=== PATIENT | male | born 1960 | race Caucasian/White ===

== ENCOUNTER 2020-09-16 14:31 | Outpatient (REF) | payer BC, SELFPAY | END 2020-09-16 14:32 | disposition home or self-care (01) | LOC: HO.LAB 14:31 | PROVIDERS: Visit Provider Internal Medicine | DX: Z20.822 Contact with and (suspected) exposure to COVID-19 (principal) | CPT/HCPCS: 36415; C9803; U0003; U0005 ==

== ENCOUNTER 2023-01-28 19:45 | Outpatient (REF) | payer MEDICAID, SELFPAY ==
[2023-01-28 20:36] LABS: Influenza A PCR NEGATIVE (Negative); Influenza B PCR NEGATIVE (Negative); Resp Syncy Virus RNA Qual PCR NEGATIVE (Negative); SARS COV2 PCR INHOUSE NEGATIVE (Negative)
== END 2023-01-28 19:46 | disposition home or self-care (01) ==
LOC: HO.HHCLNP 19:45
PROVIDERS: Visit Provider Family Medicine
DX: Z20.822 Contact with and (suspected) exposure to COVID-19 (principal); R05.9 Cough, unspecified
CPT/HCPCS: 0241U

== ENCOUNTER 2023-09-16 09:59 | Emergency (ER) | payer BC, SELFPAY ==
--- NOTE | ~2023-09-16 | CT_ITS ---
EXAMINATION: CT HEAD WITHOUT CONTRAST CT CERVICAL SPINE WITHOUT CONTRAST CLINICAL INFORMATION: Head injury status post fall. COMPARISON: No relevant prior imaging. TECHNIQUE: Lapping Machine Operator images were obtained. CT imaging of the head and cervical spine was performed without contrast. Data was reformatted into multiplanar images at the acquisition workstation. This CT examination was performed using dose optimization techniques as appropriate, including one or more of the following: Automated exposure control, iterative reconstruction, and adjustment of technique factors (mA and/or kVp) according to patient size (this includes techniques or standardized protocols for targeted exams where dose is matched to indication/reason for exam). Fleischner Society criteria for the followup of incidental pulmonary nodules was implemented if appropriate. DLP: 1224 mGy-cm. FINDINGS: Head: There is a small focus of gliosis involving the left postcentral gyrus near the vertex that appears to be associated with a tiny encephalocele within an arachnoid granulation. Mathews-white matter differentiation is otherwise preserved and there is no evidence of acute territorial infarct. No acute hemorrhage or abnormal extra-axial collection. Lateral and third ventricles are normal. No hydrocephalus. The calvarium and skull base are intact. Mastoid air cells and middle ear cavities are well aerated. There is a small retention cyst partially visualized within the right maxillary sinus. Otherwise no active paranasal sinus disease. Cervical spine: There is a slight anterolisthesis of C5 on C6 that appears to be related to facet degenerative changes at this level. Alignment is otherwise normal. Vertebral body heights are preserved. No acute cervical spine fracture. No abnormal prevertebral soft tissue swelling. Disc osteophyte spurring in conjunction with facet degenerative change causes varying degrees of neuroforaminal encroachment. There is at least moderate canal stenosis at C6-C7. Uncovertebral joint spurring and conjunction with facet degenerative change causes varying degrees of neuroforaminal encroachment, greatest at C4-C5. Visualized soft tissues of the neck are normal. Lung apices are clear. CT/CT cervical spine wo IV con IMPRESSION: Head: There is a small focus of gliosis involving the left postcentral gyrus near the vertex that appears to be associated with a tiny encephalocele within a superior sagittal sinus arachnoid granulation. Otherwise no evidence of acute territorial infarct or hemorrhage. Cervical Spine: There is multilevel degenerative spondylosis of the cervical spine with at least moderate canal stenosis at the level of C6-C7. If there are clinical symptoms of compressive myelopathy then a dedicated cervical spine MRI can be obtained for better anatomic characterization of the cord and canal. No evidence of acute fracture and no posttraumatic spinal subluxation.
[2023-09-16 10:11] VITALS: BP 122/82; PULSE 91; RESP 16; TEMP 36.4; O2SAT 92; BMI 29.6
--- NOTE | 2023-09-16 10:20 | ECG_ITS ---
Test Reason : FALL Blood Pressure : / mmHG Vent. Rate : 092 BPM Atrial Rate : 092 BPM P-R Int : 134 ms QRS Dur : 076 ms QT Int : 330 ms P-R-T Axes : 050 -25 037 degrees QTc Int : 408 ms Normal sinus rhythm Normal ECG When compared with ECG of 30-SEP-2016 14:01, No significant change was found Referred By: Generic ED Physician Electronically Signed By:SAMANTHA MILES
[2023-09-16 10:42] LABS: MANUAL DIFF FLAG NO
[2023-09-16 10:44] LABS: Basophils Absolute Auto 0.1 X10*3/uL (0.0-0.2); Basophils Percent Auto 0.4 % (0-2); Eosinophils Absolute Auto 0.2 X10*3/uL (0.0-0.4); Eosinophils Percent Auto 1.5 % (0-4); Hematocrit 41.9 % (42.0-52.0); Hemoglobin 14.3 g/dl (14.0-18.0); Imm Gran Abs Auto 0.12 X10*3/uL (0.00-0.03); Imm Gran Pct Auto 0.8 % (0.0-0.4); Lymphocytes Percent Auto 6.5 % (20-40); Mean Corpuscular HGB Conc 34.1 g/dl (31.0-36.0); Mean Corpuscular Hemoglobin 30.6 pg (27.0-33.0); Mean Corpuscular Volume 89.7 fL (80.0-98.0); Mean Platelet Volume 9.1 fL (9.4-12.4); Monocytes Absolute Auto 1.3 X10*3/uL (0.1-1.2); Monocytes Percent Auto 8.4 % (2-11); Neutrophils Absolute Auto 13.2 x10*3/uL (2.0-8.3); Neutrophils Percent Auto 82.4 % (45-73); Platelet Count 281 X10*3/uL (160-400); Red Blood Count 4.67 X10*6/uL (4.60-5.80); Red Cell Distribution Width 14.1 % (11.0-16.0)
--- NOTE | 2023-09-16 10:51 | ED.GENADULT ---
HPI - General Adult General Chief complaint: Fall Stated complaint: Sent by Dr Shantel calabrese out of ear Time Seen by Provider: 09/16/23 10:50 Source: patient Mode of arrival: ambulatory Limitations: no limitations History of Present Illness HPI narrative: Patient is a 63 year old assigned male at with no reported medical history presenting to the emergency department today with left ear pain after a fall. Patient states that last night he had a coughing fit, sat up too quickly, felt dizzy, and fell. Patient states that he did not have any loss of consciousness but did hit the left sided of his head. Patient denies any dizziness, lightheadedness, abdominal pain, nausea, vomiting, fever, chills, blurry vision, double vision, loss of vision, chest pain, difficulty breathing, shortness of breath, back pain, night sweats, pain with urination, increased urinary frequency, increased urinary urgency, blood in his urine or stool, syncope or a near syncopal episode, bowel incontinence, bladder incontinence, bowel retention, bladder retention, or any other complaints at this time. Onset (ago): day(s) (1) Location: left (ear) Radiation: non-radiation Severity: mild Severity scale (1-10): 4 Relieving factors: none Exacerbating factors: none Associated symptoms: denies other symptoms Treatments prior to arrival: none Related Data Previous Rx's Medication Instructions Recorded amoxicillin 875 mg-potassium 1 tab PO BID 10 days #20 tabs 09/16/23 clavulanate 125 mg tablet Allergies Allergy/AdvReac Type Severity Reaction Status Date / Time No Known Allergies Allergy Unverified 09/16/23 10:11 Review of Systems Constitutional: Constitutional: Reports no additional constitutional complaints, Denies chills, Denies fever(s) and Denies night sweats Eyes: Eyes: Reports no additional eye complaints, Denies blurry vision, Denies change in vision, Denies diplopia, Denies eye discharge, Denies loss of vision and Denies eye pain ENT: Denies dizziness Comments: left ear pain, left ear laceration Cardiovascular: Cardiovascular: Reports no additional cardiovascular complaints, Denies chest pain, Denies lightheadedness, Denies Loss of Consciousness and Denies dyspnea Respiratory: Respiratory: Reports no additional respiratory complaints and Denies dyspnea Gastrointestinal: Gastrointestinal: Reports no additional gastrointestinal complaints, Denies abdominal pain, Denies melena, Denies hematochezia, Denies change in bowel habits and Denies change in stool character Genitourinary: Genitourinary: Reports no additional male genitourinary complaints, Denies hematuria, Denies oliguria, Denies difficulty urinating, Denies dysuria, Denies urinary frequency, Denies urinary hesitancy, Denies urinary incontinence and Denies urinary urgency Musculoskeletal: Musculoskeletal: Reports no additional musculoskeletal complaints, Denies numbness and Denies tingling Neurologic: Denies dizziness, Denies loss of vision, Denies numbness and Denies tingling Psychiatric: Psychiatric: Reports no additional psychiatric complaints Endocrine: Endocrine: Reports no additional endocrine complaints Hematologic/Lymphatic: Hematologic/Lymphatic: Reports no additional hematologic/lymphatic complaints Allergic/Immunologic: Allergic/Immunologic: Reports no additional allergic/immunologic complaints PMFSH Past Medical History Attestation statement: The following information was validated with the patient. Source: old records reviewed and nursing notes reviewed Social History Social History Advance Directives: No Advance Directives Information Provided: No Physical Exam ED Vital Signs: Vital Signs - 24 hr 09/16/23 10:11 Temperature 97.6 F Pulse Rate 91 Respiratory Rate 16 Blood Pressure 122/82 Pulse Oximetry 92 Oxygen Delivery Method Room Air BMI result Body Mass Index 29.6 Const General: cooperative, no acute distress, alert and awake Nutritional Appearance: well nourished Orientation/consciousness: patient oriented x3 Limitations: no limitations HENMT Ears: hearing grossly normal bilaterally and TM abnormal perforated (left) Outer ear/TM images: 1. 2.5cm laceration, no active bleeding General nose exam: Normal external nose present, no nasal discharge noted and no epistaxis Face and sinus: Yes normal facial exam, No abrasion and No laceration Mouth: Normal oral and palatal mucosa present, no drooling and no muffled voice Eyes General: appearance normal, both eyes and all related structures Periorbital: periorbital findings normal Eyelids: Yes eyelids normal Conjunctivae: conjunctivae normal Pupils: Equal, round and reactive pupils present EOM: EOMs intact bilaterally Neck Neck: Yes normal visual inspection, Yes full ROM and Yes no lymphadenopathy Chest Chest palpation & inspection: normal inspection of the chest Resp Effort & Inspection: normal respiratory effort and able to speak in complete sentences GI Inspection: Yes normal to inspection Neuro General: patient oriented x3 and moves all extremities Cranial nerves: Yes Equal, round and reactive pupils present Cognition (Neuro): normal cognition Motor exam (neuro): 5/5 motor strength present throughout Sensory Exam: Normal double simultaneous stimulation for sensation Coordination: [id number] test normal Extrem General: Yes normal to inspection, Yes full ROM and Yes capillary refill normal Psych Appearance: grossly normal Mental Status: mental status grossly normal Affect: normal affect Attitude: cooperative Thought process: Normal thought process present Thought content: Normal thought content present Insight: Good insight present (Psych) Procedures Laceration Laceration 1: Site: other (ear) Side (If applicable): left Size (cm): 2 Description: irregular Depth: simple, single layer Local Anesthetic: lidocaine 1% Amount of anesthesia used (mL): 5 Pre-repair: wound explored, irrigated extensively and deep structures intact Skin layer closed with: other (prolene) Size (cm): 6-0 Number of sutures: 2 Technique: simple, interrupted Medical Decision Making Medical Decision Making MDM Narrative: Patient is a 63 year old assigned male at with no reported medical history presenting to the emergency department today with left ear pain after a fall. Patient's physical exam was as noted in the physical exam portion of this note. Patient's blood work was unremarkable. Patient's CT head and c-spine showed no acute process. I explained my physical exam findings as well as all test results to the patient. I answered all questions asked by the patient. Patient's left ear laceration was repaired, per procedure note, without incident. I stressed the importance of the patient taking his medication as prescribed. I stressed the importance of the patient having his sutures removed in 7-10 days. I stressed the importance of the patient not getting the effected area wet for at least 7 days. I stressed the importance of the patient following up with his primary care provider and an ENT. I stressed the importance of the patient returning to the emergency department immediately if his symptoms were to worsen or if he were to develop any dizziness, shortness of breath, difficulty breathing, chest pain, blurry vision, loss of vision, nausea, vomiting, abdominal pain, fever, chills, back pain, or any other complaints. Patient verbalized agreement and understanding with this treatment plan and discharge. Differential Diagnosis Differential Diagnoses: The differential diagnosis associated with the presentation includes Ear laceration Ruptured left TM Fall Head injury Admission/Observation Consideration of admission/observation: Escalation of care including admission/observation considered Patient would have been admitted to the hospital had his work up had any findings where hospital admission was appropriate and his clinical presentation warranted hospital admission. Lab Data [facility] Lab Attestation statement: I reviewed the patient's lab results. My interpretation of these results are in the [facility] Rationale portion of this note. 09/16/23 10:38 09/16/23 10:38 Labs: Lab Results 09/16/23 09/16/23 Range/Units 10:38 10:44 WBC 16.0 H (4.8-10.8) X10*3/uL RBC 4.67 (4.60-5.80) X10*6/uL Hgb 14.3 (14.0-18.0) g/dl Hct 41.9 L (42.0-52.0) % MCV 89.7 (80.0-98.0) fL MCH 30.6 (27.0-33.0) pg MCHC 34.1 (31.0-36.0) g/dl RDW 14.1 (11.0-16.0) % Plt Count 281 (160-400) X10*3/uL MPV 9.1 L (9.4-12.4) fL Immature Gran % (Auto) 0.8 H (0.0-0.4) % Neut % (Auto) 82.4 H (45-73) % Lymph % (Auto) 6.5 L (20-40) % [place] % (Auto) 8.4 (2-11) % Eos % (Auto) 1.5 (0-4) % Baso % (Auto) 0.4 (0-2) % Lymph # (Auto) 1.0 L (1.2-4.9) X10*3/uL [place] # (Auto) 1.3 H (0.1-1.2) X10*3/uL Eos # (Auto) 0.2 (0.0-0.4) X10*3/uL Baso # (Auto) 0.1 (0.0-0.2) X10*3/uL Abs Immat Gran (auto) 0.12 H (0.00-0.03) X10*3/uL Absolute Neuts (auto) 13.2 H (2.0-8.3) x10*3/uL Absolute Nucleated RBC 0.000 (0.0-0.012) X10*3/uL Nucleated RBC % (auto) 0.0 (0.0-0.2) /100WBC Sodium 139 (135-145) mmol/L Potassium 4.0 (3.3-5.1) mmol/L Chloride 106 (96-108) mmol/L Carbon Dioxide 24 (22-29) mmol/L Anion Gap 13 (12-20) BUN 13 (9-16) mg/dL Creatinine 0.98 (0.5-1.4) mg/dL Estim Creat Clear Calc 90.1 Estimated GFR > 60 Random Glucose 103 (60-115) mg/dL Calcium 9.1 (8.4-10.2) mg/dL Total Bilirubin 0.5 (0.0-1.0) mg/dL AST 23 (5-37) U/L ALT 19 (0-40) U/L Alkaline Phosphatase 76 (39-117) U/L Total Protein 6.9 (6.5-8.0) g/dL Albumin 3.4 L (3.5-5.0) g/dL Urine Color Dark Yellow Urine Appearance Clear Urine pH 6.5 (5.0-9.0) Ur Specific [place] 1.020 (1.005-1.025) Urine Protein Negative (Neg-Trace) mg/dL Urine Glucose (UA) Negative (Negative) mg/dL Urine Ketones Trace (Negative) mg/dL Urine Blood Negative (Negative) Urine Nitrite Negative (Negative) Ur Leukocyte Esterase Negative (Negative) Independent Interpretation I performed an independent interpretation of an: CT Scan Interpretation: My interpretation is in agreement with the radiologist's impression of these imaging studies. EXAMINATION: CT HEAD WITHOUT CONTRAST CT CERVICAL SPINE WITHOUT CONTRAST CLINICAL INFORMATION: Head injury status post fall. COMPARISON: No relevant prior imaging. TECHNIQUE: Clerical Adviser images were obtained. CT imaging of the head and cervical spine was performed without contrast. Data was reformatted into multiplanar images at the acquisition workstation. This CT examination was performed using dose optimization techniques as appropriate, including one or more of the following: Automated exposure control, iterative reconstruction, and adjustment of technique factors (mA and/or kVp) according to patient size (this includes techniques or standardized protocols for targeted exams where dose is matched to indication/reason for exam). Fleischner Society criteria for the followup of incidental pulmonary nodules was implemented if appropriate. DLP: 1224 mGy-cm. FINDINGS: Head: There is a small focus of gliosis involving the left postcentral gyrus near the vertex that appears to be associated with a tiny encephalocele within an arachnoid granulation. Mathews-white matter differentiation is otherwise preserved and there is no evidence of acute territorial infarct. No acute hemorrhage or abnormal extra-axial collection. Lateral and third ventricles are normal. No hydrocephalus. The calvarium and skull base are intact. Mastoid air cells and middle ear cavities are well aerated. There is a small retention cyst partially visualized within the right maxillary sinus. Otherwise no active paranasal sinus disease. Cervical spine: There is a slight anterolisthesis of C5 on C6 that appears to be related to facet degenerative changes at this level. Alignment is otherwise normal. Vertebral body heights are preserved. No acute cervical spine fracture. No abnormal prevertebral soft tissue swelling. Disc osteophyte spurring in conjunction with facet degenerative change causes varying degrees of neuroforaminal encroachment. There is at least moderate canal stenosis at C6-C7. Uncovertebral joint spurring and conjunction with facet degenerative change causes varying degrees of neuroforaminal encroachment, greatest at C4-C5. Visualized soft tissues of the neck are normal. Lung apices are clear. CT/CT head/brain wo IV con IMPRESSION: Head: There is a small focus of gliosis involving the left postcentral gyrus near the vertex that appears to be associated with a tiny encephalocele within a superior sagittal sinus arachnoid granulation. Otherwise no evidence of acute territorial infarct or hemorrhage. Cervical Spine: There is multilevel degenerative spondylosis of the cervical spine with at least moderate canal stenosis at the level of C6-C7. If there are clinical symptoms of compressive myelopathy then a dedicated cervical spine MRI can be obtained for better anatomic characterization of the cord and canal. No evidence of acute fracture and no posttraumatic spinal subluxation. Dictated By: Marco Antonio Baltazar MD Signed By: Electronically signed by Marco Antonio Baltazar MD 09/16/23 5719 Radiology Impression Discussion of test interpretation with radiology: I have reviewed the radiologist's reading. Prescription Management I considered prescription management with: Antibiotic (patient prescribed an antibiotic for ruptured TM) Critical Care Time Critical Care Time Critical Care Time: Yes Total Critical Care Time: 55 Attestation: I spent 55 minutes of Critical Care Time with this patient. This does not include time spent on separately reported billable procedures. Discharge Plan Discharge Clinical Impression: Rupture of tympanic membrane, Laceration of ear Patient Disposition: Home, Self-Care Instructions: Care For Your Stitches (DC), Laceration (DC), Ruptured Eardrum (ED) Additional Instructions: Follow up with your primary care provider and an ENT specialist. Do NOT get the inner ear wet for at least 7 days. Apply vasaline to a cotton ball and place it in the left ear to avoid getting it wet while in the shower. Have your external ear stitches (2) removed in 7-10 days. Take your antibiotic as prescribed. Return to the emergency department immediately if your symptoms worsen or if you develop any dizziness, shortness of breath, difficulty breathing, chest pain, blurry vision, loss of vision, nausea, vomiting, abdominal pain, fever, chills, back pain, or any other complaints. Prescriptions: New amoxicillin-pot clavulanate 875-125 mg tablet 1 tab PO BID 10 Days Qty: 20 0RF Referrals: Abimael Pelayo [Physician] - (Call to establish and follow up with an ENT specialist.) Marco Antonio Mchugh MD [Primary Care Provider] - Stand Alone Forms: Work/School Release Interventions: ED Discharge Assessment Last Done: 09/16/23 13:40 Discharge Date/Time: 09/16/23 13:41 Print Language: Faroese
[2023-09-16 10:52] LABS: Appearance Urine Clear; Color Urine Dark Yellow; Glucose Urine UA Negative (Negative); Leukocyte Esterase Urine Negative (Negative); Nitrite Urine Negative (Negative); PH 6.5 (5.0-9.0); Urine Blood Negative (Negative); Urine Ketones Trace mg/dL (Negative); Urine Protein Negative (Neg-Trace)
[2023-09-16 10:58] LABS: Alanine Aminotransferase 19 U/L (0-40); Albumin Level 3.4 g/dL (3.5-5.0); Alkaline Phosphatase 76 U/L (39-117); Anion Gap 13 (12-20); Aspartate Amino Transferase 23 U/L (5-37); Bilirubin Total 0.5 mg/dL (0.0-1.0); Blood Urea Nitrogen 13 mg/dL (9-16); Calcium 9.1 mg/dL (8.4-10.2); Carbon Dioxide 24 mmol/L (22-29); Chloride 106 mmol/L (96-108); Creatinine Clr Calc Pharmacy 90.1; Estimated Glomerular Filt Rate > 60; Glucose Random 103 mg/dL (60-115); Sodium 139 mmol/L (135-145); Total Protein 6.9 g/dL (6.5-8.0)
== END 2023-09-16 13:41 | disposition home or self-care (01) ==
PROVIDERS: Emergency Provider Emergency Medicine; PCP Internal Medicine Medical Oncology
DX: S09.22XA Traumatic rupture of left ear drum, initial encounter (principal); S01.312A Laceration without foreign body of left ear, initial encounter; W19.XXXA Unspecified fall, initial encounter; Y93.9 Activity, unspecified; Y92.9 Unspecified place or not applicable; Y99.9 Unspecified external cause status
CPT/HCPCS: 12011; 36415; 70450; 72125; 80053; 81003; 85025; 93005; 99284

== ENCOUNTER → 2023-09-16 10:20 | Outpatient (BNV) | payer BC, SELFPAY | PROVIDERS: Emergency Provider Emergency Medicine; PCP Internal Medicine Medical Oncology; Visit Provider Internal Medicine | DX: R94.31 Abnormal electrocardiogram [ECG] [EKG] (principal) | CPT/HCPCS: 93010 ==

== ENCOUNTER 2024-01-13 17:30 | Emergency (ER) | payer BC, SELFPAY ==
--- NOTE | ~2024-01-13 | CT_ITS ---
EXAMINATION: CT ABDOMEN AND PELVIS WITHOUT CONTRAST CLINICAL INFORMATION: Right flank pain COMPARISON: 02/28/2012 TECHNIQUE: Multidetector volumetric imaging was performed from the superior aspect of the liver through the pubic symphysis. Sagittal and coronal reformatted images were obtained on the technologist's workstation. This CT examination was performed using dose optimization techniques as appropriate, variously including the following: *Automated exposure control *Adjustment of mA and/or kV according to patient size (this includes techniques or standardized protocols for targeted exams where dose is matched to indication/reason for exam; i.e. extremities or head) *Use of iterative reconstruction technique DLP: 674 mGy-cm FINDINGS: LUNG BASES: The bronchial rothman are diffusely thickened and there are secretions within lower lobe bronchi. Centrilobular emphysema is present. 0.3 cm solid, noncalcified nodule of the lingula. No large or suspicious-appearing nodule. Based on Fleischner Society guidelines, no chest CT imaging follow-up recommended. HEPATOBILIARY: Mild hepatomegaly and diffuse hepatic steatosis. Gallbladder has a normal appearance. No dilated bile ducts. PANCREAS: Mildly atrophied. No edema, pancreatic ductal dilatation or mass. SPLEEN: Normal. ADRENAL GLANDS: Normal. KIDNEYS AND URETERS: Kidneys are normal in size. Punctate calyceal stones of the anterior lower pole of left kidney (image 327, series 3) and posterior upper pole of the left kidney (image 257, series 3). Right-sided perinephric edema and mild hydronephrosis are caused by a 0.3 cm stone in the distal ureter, located approximately 1.5 cm above the level of the ureterovesical junction. BLADDER: Normal. BOWEL AND PERITONEUM: Stomach and small bowel are unremarkable. No dilated loops. The appendix is normal. No overt colonic wall thickening or mesenteric fat stranding. Multiple diverticula of the descending and sigmoid colon. No free fluid or pneumoperitoneum. ABDOMINAL WALL: No acute or significant imaging abnormalities in the abdominal wall. VASCULATURE: Mild atherosclerotic calcification of the abdominal aorta without aneurysm. LYMPH NODES: No pathologic sized lymph nodes in the abdomen or pelvis. No inguinal lymphadenopathy. PELVIC VISCERA: Prostate gland is unremarkable. MUSCULOSKELETAL: Multilevel osteophyte formation of the degenerated spine. There is disc space narrowing and vacuum disc phenomenon at L4-L5 and L5-S1. Mild multilevel retrolisthesis of the vertebra in the degenerated lumbar spine. There is prominent enthesophyte formation at the superior aspect of the pubis. Suspicious osseous lesions. CT/CT abdomen pelvis wo IV con IMPRESSION: * Mild right hydroureteronephrosis and perinephric edema are caused by a 0.3 cm stone of the distal ureter. * Punctate calyceal stones in the upper and lower pole of the left kidney. * Colonic diverticulosis without diverticulitis. * Diffuse hepatic steatosis. * Diffuse thickening of bronchial rothman and emphysematous changes in the visualized lung bases. Correlate for any history of chronic obstructive pulmonary disease.
[2024-01-13 17:32] VITALS: BP 165/72; PULSE 83; RESP 20; TEMP 36.8; O2SAT 93; BMI 29.3
[2024-01-13] MEDS: Ondansetron ODT 4 MG TAB.RAPDIS TRANSLINGU (17:37)
--- NOTE | 2024-01-13 17:37 | ED.ABDPAIN ---
HPI - Abdominal Pain General Chief Complaint: Abdominal Pain Stated Complaint: right flank pain ? kidney stone Time Seen by Provider: 01/13/24 18:50 History of Present Illness ED Provider: Elif MARTINEZ narrative: The patient is a 63-year-old male who was driving home from work when he developed right flank pain. 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 He had been fine earlier in the day. He says that several years ago he had an episode of what he thought might be a kidney stone but it only lasted about 10 minutes and he has never had a formal diagnosis of kidney stone. Problems with kidney stones however. Pain was excruciating and he came to the hospital. No fever. He felt nauseated but no vomiting. Related Data Previous Rx's ?Medication ?Instructions ?Recorded amoxicillin 875 mg-potassium 1 tab PO BID 10 days #20 tabs 09/16/23 clavulanate 125 mg tablet ondansetron 4 mg disintegrating 4 mg PO Q6H PRN nausea and 01/13/24 tablet vomiting #10 tabs oxycodone 5 mg tablet 5 mg PO Q6H PRN pain #12 tabs 01/13/24 Allergies Allergy/AdvReac Type Severity Reaction Status Date / Time No Known Allergies Allergy Verified 01/13/24 17:34 [facility] Social History Social History Alcohol intake: former Smoked in Last 30 Days: No Use of substances other than those prescribed or required for medical reasons: No Advance Directives: No Advance Directives Information Provided: No Do you have a plan to hurt others: No Plan Physical Exam ED Vital Signs: Vital Signs - 24 hr 01/13/24 17:32 01/13/24 19:03 01/13/24 19:35 Temperature 98.3 F Pulse Rate 83 Respiratory Rate 20 16 14 Blood Pressure 165/72 H Pulse Oximetry 93 Oxygen Delivery Method Room Air 01/13/24 20:52 01/13/24 23:26 Temperature 97.7 F 98.1 F Pulse Rate 75 83 Respiratory Rate 18 16 Blood Pressure 151/94 H 129/84 Pulse Oximetry 88 L 97 Oxygen Delivery Method Room Air Room Air BMI result Body Mass Index 29.3 Const Other: The patient was awake and alert. He looks extremely uncomfortable. HENMT Other: Face is symmetrical. Mucous membranes moist. Eyes Other: Pupils are round equal reactive to light. No scleral icterus Neck Other: No JVD Resp Effort & Inspection: normal respiratory effort Auscultation: clear to auscultation bilaterally Cardio Rate: regular rate Rhythm: regular rhythm Heart sounds: S1 normal heart sound present and S2 normal heart sound present GI Other: Abdomen is soft and nontender. Back/Spine/Pelvis Other: Right-sided CVA percussion tenderness Skin Other: Skin is dry and unremarkable Neuro Other: The patient is awake and alert with a normal mental status. Cranial nerves are grossly intact. He moves his extremities normally. Grossly neurologically intact. Extrem Other: No peripheral edema Course Course Course Narrative: This is an RME: Additional HPI, ROS, PE not included below will be deferred to primary provider. RME assessment and note performed by: Fariba Isbell PA-C This is a 63-year-old male presents emergency department with complaints of right-sided flank pain. Also endorsing some nausea. States that the pain started suddenly 1 hour ago. History of kidney stones, symptoms feel similar. Appears uncomfortable secondary to pain. Patient medicated with Zofran. No urinary symptoms in the department today. Plan: Labs, CT abdomen and pelvis, UA Medical Decision Making Medical Decision Making MDM Narrative: The patient is a 63-year-old male who presents with acute right flank pain suggestive of ureteral colic. He was in intense discomfort and was given hydromorphone for pain. Noncontrast CT scan of the abdomen and pelvis shows a 3 mm right distal ureteral stone. Labs shows some degree of decreased renal function presumably as a result of his ureteral obstruction. The patient was treated symptomatically and also given 2 L of IV normal saline. Ultimately he seemed better and was able to tolerate 10 mg of oral oxycodone. He seemed eager to try to go home a manage his pain at home. A prescription for oxycodone and ondansetron was sent to a 24 hour pharmacy. He will be discharged with his . He should return if worse. He should follow up with Urology. The patient's urinalysis was unremarkable. No blood or sign of infection. Lab Data 01/13/24 17:53 01/13/24 17:53 Labs: Lab Results 01/13/24 01/13/24 Range/Units 17:53 20:54 WBC 9.9 (4.8-10.8) X10*3/uL RBC 4.81 (4.60-5.80) X10*6/uL Hgb 14.6 (14.0-18.0) g/dl Hct 43.8 (42.0-52.0) % MCV 91.1 (80.0-98.0) fL MCH 30.4 (27.0-33.0) pg MCHC 33.3 (31.0-36.0) g/dl RDW 14.7 (11.0-16.0) % Plt Count 176 D (160-400) X10*3/uL MPV 10.1 (9.4-12.4) fL Immature Gran % (Auto) 0.6 H (0.0-0.4) % Neut % (Auto) 67.1 (45-73) % Lymph % (Auto) 18.2 L (20-40) % [place] % (Auto) 9.7 (2-11) % Eos % (Auto) 3.8 (0-4) % Baso % (Auto) 0.6 (0-2) % Lymph # (Auto) 1.8 (1.2-4.9) X10*3/uL [place] # (Auto) 1.0 (0.1-1.2) X10*3/uL Eos # (Auto) 0.4 (0.0-0.4) X10*3/uL Baso # (Auto) 0.1 (0.0-0.2) X10*3/uL Abs Immat Gran (auto) 0.06 H (0.00-0.03) X10*3/uL Absolute Neuts (auto) 6.6 (2.0-8.3) x10*3/uL Absolute Nucleated RBC 0.000 (0.0-0.012) X10*3/uL Nucleated RBC % (auto) 0.0 (0.0-0.2) /100WBC Sodium 142 (135-145) mmol/L Potassium 3.7 (3.3-5.1) mmol/L Chloride 113 H (96-108) mmol/L Carbon Dioxide 22 (22-29) mmol/L Anion Gap 11 L (12-20) BUN 22 H (9-16) mg/dL Creatinine 1.57 H (0.5-1.4) mg/dL Estim Creat Clear Calc 55.9 Estimated GFR 45 Random Glucose 107 (60-115) mg/dL Calcium 8.7 (8.4-10.2) mg/dL Total Bilirubin 0.3 (0.0-1.0) mg/dL Direct Bilirubin 0.2 (0.0-0.5) mg/dL AST 24 (5-37) U/L ALT 34 (0-40) U/L Alkaline Phosphatase 73 (39-117) U/L Total Protein 6.7 (6.5-8.0) g/dL Albumin 4.0 (3.5-5.0) g/dL Urine Color Yellow Urine Appearance Clear Urine pH 5.5 (5.0-9.0) Ur Specific Forbes 1.010 (1.005-1.025) Urine Protein Negative (Neg-Trace) mg/dL Urine Glucose (UA) Negative (Negative) mg/dL Urine Ketones Negative (Negative) mg/dL Urine Blood Negative (Negative) Urine Nitrite Negative (Negative) Ur Leukocyte Esterase Negative (Negative) Medications Administered Discontinued Medications Generic Name Dose Route Start Last Admin Trade Name Freq PRN Reason Stop Dose Admin Droperidol 1.25 mg 01/13/24 19:02 01/13/24 19:09 Droperidol 5 Mg/2 Ml Vial IVPUSH 01/13/24 19:03 1.25 mg ONCE ONE Administration Hydromorphone HCl 1 mg 01/13/24 18:53 01/13/24 19:03 Hydromorphone Hcl 1 Mg/Ml Syringe IVPUSH 01/13/24 18:54 1 mg ONCE ONE Administration Protocol Hydromorphone HCl 1 mg 01/13/24 19:31 01/13/24 19:35 Hydromorphone Hcl 1 Mg/Ml Syringe IVPUSH 01/13/24 19:32 1 mg ONCE ONE Administration Protocol Hydromorphone HCl 1 mg 01/13/24 20:59 01/13/24 21:32 Hydromorphone Hcl 1 Mg/Ml Syringe IVPUSH 01/13/24 21:00 1 mg ONCE ONE Administration Protocol Sodium Chloride 1,000 mls @ 999 mls/hr 01/13/24 18:48 01/13/24 20:20 Ns IV 01/13/24 19:48 Infused .Q1H1M ONE Infusion Sodium Chloride 1,000 mls @ 999 mls/hr 01/13/24 19:30 01/13/24 22:21 Ns IV 01/13/24 20:30 Infused .Q1H1M MORENA Infusion Lactated Ringer's 1,000 mls @ 999 mls/hr 01/13/24 22:15 01/13/24 23:26 Lr IV 01/13/24 23:15 Not Given .Q1H1M MORENA Ondansetron HCl 4 mg 01/13/24 17:36 01/13/24 17:37 Ondansetron Odt 4 Mg Tab.Rapdis TRANSLINGU 01/13/24 17:37 4 mg ONCE ONE Administration Oxycodone HCl 10 mg 01/13/24 22:05 01/13/24 22:41 Oxycodone Hcl Immed Release 5 Mg Tablet PO 01/13/24 22:06 10 mg ONCE ONE Administration Tamsulosin HCl 0.4 mg 01/13/24 20:59 01/13/24 21:32 Tamsulosin Hcl 0.4 Mg Capsule PO 01/13/24 21:00 0.4 mg ONCE ONE Administration Discharge Plan Discharge Clinical Impression: Ureter colic Patient Disposition: Home, Self-Care Instructions: Kidney Stones (ED), Renal Colic (ED) Additional Instructions: You have a 3 mm stone at the far end of your right ureter. The stone is quite close to your bladder and I hope it passes soon into your bladder. Use the oxycodone as needed for pain. You may take 1-2 tablets every 4-6 hours as needed. Use the ondansetron as needed for nausea. Please contact the urology office in the morning to arrange follow up for this problem. If at any point you are significantly worse please return to the emergency department. Prescriptions: New oxycodone 5 mg tablet 5 mg PO Q6H PRN (Reason: pain) Qty: 12 0RF Rx Instructions: Partial Fill upon patient request. ondansetron 4 mg tablet,disintegrating 4 mg PO Q6H PRN (Reason: nausea and vomiting) Qty: 10 0RF No Action amoxicillin-pot clavulanate 875-125 mg tablet 1 tab PO BID 10 Days Qty: 20 0RF Referrals: Barber,Toy M, MD [Physician] - (Right ureteral stone) Stand Alone Forms: Work/School Release Interventions: ED Discharge Assessment Last Done: 01/13/24 23:26 Discharge Date/Time: 01/13/24 23:28 Print Language: Taiwanese
[2024-01-13 17:57] LABS: MANUAL DIFF FLAG NO
[2024-01-13 18:07] LABS: Basophils Absolute Auto 0.1 X10*3/uL (0.0-0.2); Basophils Percent Auto 0.6 % (0-2); Eosinophils Absolute Auto 0.4 X10*3/uL (0.0-0.4); Eosinophils Percent Auto 3.8 % (0-4); Hematocrit 43.8 % (42.0-52.0); Hemoglobin 14.6 g/dl (14.0-18.0); Imm Gran Abs Auto 0.06 X10*3/uL (0.00-0.03); Imm Gran Pct Auto 0.6 % (0.0-0.4); Lymphocytes Absolute Auto 1.8 X10*3/uL (1.2-4.9); Lymphocytes Percent Auto 18.2 % (20-40); Mean Corpuscular HGB Conc 33.3 g/dl (31.0-36.0); Mean Corpuscular Hemoglobin 30.4 pg (27.0-33.0); Mean Corpuscular Volume 91.1 fL (80.0-98.0); Mean Platelet Volume 10.1 fL (9.4-12.4); Monocytes Percent Auto 9.7 % (2-11); Neutrophils Absolute Auto 6.6 x10*3/uL (2.0-8.3); Neutrophils Percent Auto 67.1 % (45-73); Platelet Count 176 X10*3/uL (160-400); Red Blood Count 4.81 X10*6/uL (4.60-5.80); Red Cell Distribution Width 14.7 % (11.0-16.0); White Blood Count 9.9 X10*3/uL (4.8-10.8)
[2024-01-13 18:13] LABS: Alanine Aminotransferase 34 U/L (0-40); Alkaline Phosphatase 73 U/L (39-117); Anion Gap 11 (12-20); Aspartate Amino Transferase 24 U/L (5-37); Bilirubin Direct 0.2 mg/dL (0.0-0.5); Bilirubin Total 0.3 mg/dL (0.0-1.0); Blood Urea Nitrogen 22 mg/dL (9-16); Calcium 8.7 mg/dL (8.4-10.2); Carbon Dioxide 22 mmol/L (22-29); Chloride 113 mmol/L (96-108); Creatinine Clr Calc Pharmacy 55.9; Estimated Glomerular Filt Rate 45; Glucose Random 107 mg/dL (60-115); Potassium 3.7 mmol/L (3.3-5.1); Sodium 142 mmol/L (135-145); Total Protein 6.7 g/dL (6.5-8.0)
[2024-01-13 19:03] VITALS: RESP 16
[2024-01-13] MEDS: HYDROmorphone HCl 1 MG/ML SYRINGE IVPUSH ×3 (19:03→21:32)
[2024-01-13] MEDS: 0.9 % Sodium Chloride 1,000 ML 999 ML IV ×2 (19:03→20:22)
[2024-01-13] MEDS: droPERidol 5 MG/2 ML VIAL 1.25 MG IVPUSH (19:09)
[2024-01-13 19:35] VITALS: RESP 14
[2024-01-13 20:52] VITALS: BP 151/94; PULSE 75; RESP 18; TEMP 36.5; O2SAT 88
[2024-01-13 21:01] LABS: Appearance Urine Clear; Color Urine Yellow; Glucose Urine UA Negative (Negative); Leukocyte Esterase Urine Negative (Negative); Nitrite Urine Negative (Negative); PH 5.5 (5.0-9.0); Urine Blood Negative (Negative); Urine Ketones Negative (Negative); Urine Protein Negative (Neg-Trace)
[2024-01-13] MEDS: Tamsulosin HCL 0.4 MG CAPSULE PO (21:32)
[2024-01-13] MEDS: oxyCODONE HCl Immed Release 5 MG TABLET 10 MG PO (22:41)
[2024-01-13 23:26] VITALS: BP 129/84; PULSE 83; RESP 16; TEMP 36.7; O2SAT 97
== END 2024-01-13 23:28 | disposition home or self-care (01) ==
PROVIDERS: Physician Assistant Medical; Emergency Provider Emergency Medicine; PCP Internal Medicine Medical Oncology
DX: N13.2 Hydronephrosis with renal and ureteral calculous obstruction (principal); R10.9 Unspecified abdominal pain
CPT/HCPCS: 36415; 74176; 80048; 80076; 81003; 85025; 96361; 96374; 96375; 96376; 99284; 99285; J1170; J1790

== ENCOUNTER 2024-01-17 16:32 | Outpatient (REF) | payer BC, SELFPAY | END 2024-01-17 16:33 | disposition home or self-care (01) | LOC: HO.LAB 16:32 | PROVIDERS: PCP Internal Medicine Medical Oncology; Visit Provider Internal Medicine Medical Oncology | DX: N20.0 Calculus of kidney (principal); R39.9 Unspecified symptoms and signs involving the genitourinary system | CPT/HCPCS: 87086 ==

== ENCOUNTER 2024-01-19 09:07 | Outpatient (AMB) | payer BC, SELFPAY ==
--- NOTE | 2024-01-19 09:24 | A.OFFVIS_ITS ---
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 He has a patient of Dr. Mchugh. He has seen for the following urologic conditions - nephrolithiasis - bladder outlet obstruction Nephrolithiasis Recently seen in emergency room 3 mm distal right ureteric stone with mild hydro. Creatinine 1.6 Was associated with mild temperature Has been treated with medical expulsion therapy and ciprofloxacin Feels the stone is moving in about to pass He will call office on Wednesday Lower urinary tract symptoms Progressive Longstanding Waking multiple times at night Prior prostate procedure in distance past Would like cystoscopy July Medical History BPH (benign prostatic hyperplasia) H/O urinary frequency Surgical History History of prostate surgery Social History Alcohol intake: former Review of Systems Const Denies chills and Denies fever(s) Card Reports no additional complaints and Denies syncope Resp Denies cough GI Denies abdominal pain and Denies heartburn Reports as per HPI and Denies change in libido Neuro Denies syncope Psych Denies change in libido Endo Denies change in libido Physical Exam Const General: cooperative, healthy appearing, comfortable and no acute distress Orientation/consciousness: patient oriented x3 HEENT Face and sinus: Yes normal facial exam Mouth: moist mucous membranes Neck Neck: Yes normal visual inspection, Yes full ROM and Yes trachea midline Chest Chest palpation & inspection: normal inspection of the chest Resp Effort & Inspection: normal respiratory effort, able to speak in complete sentences and no respiratory distress GI Inspection: Yes normal to inspection Back/Spine/Pelvis Cervical Spine: normal cervical lordosis Thoracic/Lumbar Spine: thoracic and lumbar spine normal to inspection Skin General skin exam: no rashes or lesions noted Neuro General: patient oriented x3, gait normal, tone normal and moves all extremities Extrem General: Yes normal to inspection and Yes capillary refill normal Assessment & Plan Assessment & Plan (1) Nephrolithiasis: Code(s): N20.0 - Calculus of kidney Category: Medical (2) Bladder outlet obstruction: Code(s): N32.0 - Bladder-neck obstruction Category: Medical Plan Check cystoscopy Check renal ultrasound Orders: Orders US renal BI 6 Months N20.0 - Calculus of kidney Medications: New oxycodone Partial Fill upon patient request. 5 mg PO BEDTIME 30 days PRN 10 tabs 0RF pain N20.0 - Calculus of kidney Patient Instructions: Imaging studies, laboratory and physical exam results were discussed and reviewed in detail. No major barriers to patient understanding were identified. An opportunity to ask questions regarding the treatment plan was provided. All questions were answered. The patient expressed understanding and agreement with the above treatment plan. The patient is aware they should contact our office by phone for worsening of their current condition or the appearance of new urologic symptoms. Compliance is encouraged with any medications and followup testing that is ordered. It is a privilege to participate in the urologic care of your patient. If you have any questions or concerns regarding treatment for the above conditions, or other urologic issues, please do not hesitate to contact me. The office telephone contact is [phone]. This note is constructed using voice recognition software. While every effort has been made to ensure accuracy construction assistant errors may have been included. Yours sincerely, Dr Toy Barber MD, [facility] - Urology Providers of Expert, Compassionate Care for the Genitourinary System Coding Level of Care Code New Pt Level 4 (81946) Diagnoses Nephrolithiasis N20.0 Bladder outlet obstruction N32.0
== END 2024-01-19 09:41 | disposition home or self-care (01) ==
PROVIDERS: PCP Internal Medicine Medical Oncology; Visit Provider Urology
DX: N20.0 Calculus of kidney (principal); N32.0 Bladder-neck obstruction
CPT/HCPCS: 99203

== ENCOUNTER → 2024-01-19 09:07 | Outpatient (BNVA) | payer BC, SELFPAY | PROVIDERS: PCP Internal Medicine Medical Oncology; Visit Provider Urology ==

== ENCOUNTER 2024-08-18 14:41 | Outpatient (AMB) | payer BC, SELFPAY ==
--- OUTSIDE RECORDS SUMMARY | 2024-08-18 14:44 | XMS_ITS | Clinical Summary ---
Author Organization [employer] Address [address] [place] [address] Care Team Providers Care Control Clerk [employer] Name Role Phone Unavailable Primary Care Provider Unavailabl e Allergies No known active allergies Medications predniSONE (Deltasone) 10 MG tabletIndications :COPD with acute exacerbation (CMS/HCC) Take by oral route daily. 6 tabs (=60mg) on day 1-2; 5 tabs (=50mg) on day 3-4; 4 tabs (=40mg) on day 5-6; 3 tabs (=30mg) on day 7-8; 2 tabs (=20mg) on day 9-10; 1 tab on day 11-12; 1/2 tab on day 13-14 43 tablet 01/28/2023 Active Social History Tobacco Use Types Packs/Day Years Used Date Smoking Tobacco: Never Smokeless Tobacco: Never Tobacco Cessation:Counseling Given: Not Answered Sex and Gender Information Value Date Recorded Sex Assigned at Male 01/28/2023 8:37 AM EDT Legal Sex Male 1:15 PM EDT Gender Identity Male 01/28/2023 8:37 AM EDT Sexual Orientation Don't know 01/28/2023 8: 37 AM EDT Last Filed Vital Signs Vital Sign Reading Time Taken Comments Blood Pressure 142/97 01/28/2023 9:05 AM EDT Pulse 111 01/28/2023 9:05 AM EDT Temperature 36.8 ??C (98.2 ??F) 01/28/2023 9:05 AM ED T Respiratory Rate 17 01/28/2023 9:05 AM EDT Oxygen Saturation 95% 01/28/2023 9:05 AM EDT Inhaled Oxygen Concentration - - Weight 100 kg (221 lb 3.2 oz) 01/28/2023 9:05 AM EDT Height - - Body Mass Index - - Plan of Treatment Health Maintenance Due Date Last Done Comments CT Colonography 1959 Colonoscopy 1959 Colorectal Cancer Screening 1959 Depression Screening 1959 FIT DNA/Cologuard 1959 FIT 1959 FOBT 1959 Lipid Panel 1959 SDOH Screening 1959 Sigmoidoscopy 1959 Alcohol/Substance Use Screening 1971 Hepatitis C Screening 1977 DTaP/Tdap/Td Vaccines (1 - Tdap) 1978 Pneumococcal Vaccine: 50+ Ye ars (1 of 2 - PCV) 1978 Zoster Vaccines (1 of 2) 2009 RSV Patients and Pa tients Aged 60 years or older (1 - Risk 60-74 years 1-dose series) 2019 Tobacco Screening 01/29/2024 01/28/2023 COVID-19 Vaccine (2 - 2023-2 5 season) 2024 11/07/2020 Influenza Vaccine (#1) 2024 HIB Vaccines Aged Out No longer eligi ble based on patient's age to complete this topic HPV Vaccines Aged Out No longer eligi ble based on patient's age to complete this topic Hepatitis A Vaccines Aged Out No long er eligible based on patient's age to complete this topic Hepatitis B Vaccines Aged Out No long er eligible based on patient's age to complete this topic IPV Vaccines Aged Out No longer eligi ble based on patient's age to complete this topic Meningococcal Vaccine Aged Out No daryn bren eligible based on patient's age to complete this topic RSV under 20 months Aged Out No longe r eligible based on patient's age to complete this topic Rotavirus Vaccines Aged Out No longer eligible based on patient's age to complete this topic Insurance dr [id number] [place] [id number] [facility] [address]
--- OUTSIDE RECORDS SUMMARY | 2024-08-18 14:44 | XMS_ITS | Data Portability ---
Author Organization DIANDRA Restrepo [facility], [address] Address [address] [place] [address] Care Team Providers Care Per Diem Interpreter Name Role Phone JOHAN AGUILA Primary Care Provider [phone] Assessment No assessment recorded. Plan of Treatment Reminders Order Date Submit Date Provider Last Modified By Organization Details Last Modified Time Details Appointments None recorded . Lab None recorded . Ref[facility]oped ic [facility] [address] [place], [address], 3 08:51:54 Procedures None recorded . Surgeries None recorded . Imaging XR, elbow, 3 or more view 2022 023 [email or web address] 9 [facility], [address] [place], [address], 3 19:24:41 electroc ardiogra m 2022 023 [email or web address] 9 _[facility]i [facility], [address], [place], [address], 3 19:24:41 XR, chest, 2 view 2022 023 [email or web address] 9 [facility], [address] [place], [address], 3 19:24:41 Medication Orders benzonat ate 100 mg capsule 2022 023 [email or web address] [id number], [address] [place], [place], [phone], 10:46:53 doxycycl ine hyclate 100 mg capsule 2022 023 [email or web address] [facility] #[id number], [address] [place], [place], [phone], 10:47:02 Patient TargetsNo targets recorded. Patient Instructions Encounter Date Encounter Id Patient Instructions Last Modified By Organization Details Last Modified Time 02/13/2023 [id number] fainting: care instructions [email or web address] Not available 02/13/2023 19:03:03 lightheadedness or faintness: care instructions [email or web address] Not available 02/13/2023 19:03:03 chronic obstruct trinh pulmonary disease (COPD) flare-ups: care instructions [email or web address] Not available 02/13/2023 19:03:03 cough: care instructions [email or web address] Not available 02/13/2023 19:03:03 bronchitis: care instructions [email or web address] Not available 02/13/2023 19:16:12 Your EKG was abnormal but you have elected not to go to the Emergency Department for evaluation but instead follow-up with your doctor. A copy of your EKG has been provided and you should follow-up with your doctor tomorrow. You are encouraged to change your mind and go to the Emergency Department after leaving [facility]. Use your inhalers as prescribed by your doctor. Take the cough medication as prescribed if needed. Take the antibiotic as prescribed. Take an over the counter probiotic daily while taking the antibiotic. Your chest xray was negative but your elbow xray was suspicious for an avulsion inury to your triceps tendon. Wear the sling for comfort and support. Perform gentle range of motion exercises several times daily as tolerated. A referral to orthopedics has been made for you - call [facility] for an appointment as soon as possible. See printed instructions and work note. Seek Emergency Medical evaluation for any worsening symptoms. [email or web address] Not available 02/13/2023 19:18:50 EKG performed fi rst and noted to be abnormal. Patient advised to go to Emergency Department for further evaluation where xrays would be done as part of this evaluation. The patient declined to go to the ER at this point and requested xrays be done here. He was advised of the potential adverse consequences of this decision including but not limited to heart attack, respiratory failure, permanent disability and . He is competent to make the decision to not go to the ER. Xrays performed. Patient still declines to go to the ER. [email or web address] Not available 02/13/2023 18:54:05 05/26/2023 [id number] shortness of breath: care instructions Not available 05/26/2023 11:07:55 COPD exacerbatio n plan: care instructions Not available 05/26/2023 11:07:55 Reason for Referral Orthopedic Surgeon Referral for Pain of right elbow joint Possible right triceps avulsion injury. Referring Physician: Dennise Young, Urgent Care, Encounter Date: 02/13/2023 Results Created Date Observation Date Name Description Value Unit Range Abnormal Flag Note LastModifiedBy Organization Detail LastModifiedTime 02/14/2002/13/2023 elect emily vidalgr am No observ ation record ed. [facility] [address], [address], 02/13/2023 19:03:04 02/14/20 23 02/13/2023 XR, chest , 2 view No observ ation record ed. [email or web address] [facility] [address] [place], [address], 02/13/2023 19:14:11 02/14/20 23 02/13/2023 XR, elbow , 3 or more view No observ ation record ed. [facility] [address] [place], [address], 02/13/2023 19:14:11 Result Notes None recorded. Problems Name Problem SNOMED Code Status Onset Date Resolution Date Notes Provider Name and Address Organization Details Recorded Time Asthma 178033017 Active 2022 Amarilis Anastasiya null, PA - [facility] 3 16:45:30 Chronic obstructive pulmonary disease 97414247 Active 2022 Amarilis Anastasiya null, PA - [facility] 3 16:45:34 Gastroesophage al reflux disease 858529544 Active 2022 Amarilis Anastasiya null, PA - [facility] 3 16:45:38 Problem Notes None recorded. Procedures Surgical History Date Name Laterality Status Provider Name and Address Organization Details Recorded Time radical prostatectomy completed Amarilis Langford PA - [facility] 02/13/2023 16:46:06 Shoulder joint surgery completed LIZ DOTSON PA - [facility] 05/26/2023 10:48:06 Imaging Results Imaging Date Name Status LastModified by Organization Details LastModified Time 02/13/2023 electrocardiogram completed [facility] [address], [place], [address], 02/13/2023 19:03:04 02/13/2023 XR, chest, 2 view completed [email or web address] [facility] [address] [place], [address], 02/13/2023 19:14:11 02/13/2023 XR, elbow, 3 or more view completed [email or web address] [facility] [address] [place], [address], 02/13/2023 19:14:11 Procedure Notes None recorded. Medical Equipment None Reported. Allergies No known drug allergies Medications Name Sig Start Date Stop Date Status Note LastModified by Organization Details LastModified Time amoxicillin 500 mg capsule TAKE 1 CAPSULE BY MOUTH EVERY 8 HOURS FOR 10 DAYS 05/26 completed Not Available Not Available Not Available prednisone 10 mg tablet 02/13 completed Not Available Not Available Not Available doxycycline hyclate 100 mg capsule TAKE 1 CAPSULE BY MOUTH TWICE DAILY FOR 7 DAYS 05/26 completed Not Available Not Available Not Available albuterol sulfate 2.5 mg/3 mL (0.083 %) solution for nebulizatio n USE 1 VIAL VIA NEBULIZER EVERY 4 HOURS NEEDED FOR WHEEZING active Not Available Not Available No t Available azithromyci n 250 mg tablet 02/13 completed Not Available Not Available Not Available benzonatate 100 mg capsule TAKE 1 CAPSULE BY MOUTH THREE TIMES DAILY NEEDED 05/26 completed Not Available Not Available Not Available oxybutynin chloride ER 5 mg tablet,exte nded release 24 hr TAKE 1 TABLET BY MOUTH DAILY 02/13 completed Not Available Not Available Not Available omeprazole 20 mg capsule,del ayed release TAKE 1 CAPSULE BY MOUTH EVERY DAY 30 MINUTES BEFORE BREAKFAST active Not Available Not Available No t Available Ventolin HFA 90 mcg/actuati on aerosol inhaler INHALE 2 PUFFS BY MOUTH EVERY 4 HOURS NEEDED active Not Available Not Available No t Available Trelegy Ellipta 100 mcg-62.5 mcg-25 mcg powder for inhalation INHALE 1 PUFF BY MOUTH EVERY DAY 05/26 completed Not Available Not Available Not Available Breztri Aerosphere 160 mcg-9mcg-4. 8mcg/actuat ion HFA aerosol inhaler INHALE 2 PUFFS INTO THE LUNGS TWICE DAILY active Not Available Not Available No t Available Paxlovid 300 mg (150 mg x 2)-100 mg tablets in a dose pack FOLLOW PACKAGE DIRECTION S 02/13 completed Not Available Not Available Not Available Vitals Date Recorded Body weight Provider Name an d Address Organization Details Last Updated DateTime 02/13/2023 937692.28 g Amarilis Anastasiya PA - [facility] 02/13/2023 16:44:56 Date Recorded Body mass index (BMI) Body height Provider Name and Address Organization Details Last Updated DateTime 02/13/2023 31.4 kg/m2 180.34 cm Amarilis Anastasiya PA - [facility] 02/13/2023 16:44:57 Date Recorded Pain severity - 0-10 verbal numeric rating [Score] - Reported Provider Name and Address Organization Details Last Updated DateTime 02/13/2023 8 Amarilis Siloam PA - [facility] 0 02/13/2023 16:46:30 Date Recorded Respiratory rate Provider Name a nd Address Organization Details Last Updated DateTime 02/13/2023 18 /min Amarilis Siloam PA - [facility] 0 02/13/2023 16:46:34 Date Recorded Oxygen saturation Oxygen saturation in Arterial blood by Pulse oximetry Provider Name and Address Organization Details Last Updated DateTime 02/13/2023 94 % 94 % Amarilis Anastasiya PA - [facility] 02/13/2023 16:47:44 Date Recorded Heart rate Provider Name an d Address Organization Details Last Updated DateTime 02/13/2023 72 /min Amarilis Siloam PA - [facility] 0 02/13/2023 16:47:45 Date Recorded Body temperature Provider Name a nd Address Organization Details Last Updated DateTime 02/13/2023 97.8 [degF] Amarilis Anastasiya PA - [facility] 02/13/2023 16:47:49 Date Recorded Body height Provider Name an d Address Organization Details Last Updated DateTime 05/26/2023 180.34 cm LIZ MINEO PA - [facility] 1 07/26/2022 10:48:07 Date Recorded Body mass index (BMI) Body weight Provider Name and Address Organization Details Last Updated DateTime 05/26/2023 30.7 kg/m2 13366.32 g LIZ MINEO PA - [facility] 05/26/2023 10:48:27 Date Recorded Oxygen saturation Oxygen saturation in Arterial blood by Pulse oximetry Provider Name and Address Organization Details Last Updated DateTime 05/26/2023 92 % 92 % LIZ MINEO PA - [facility] 05/26/2023 10:48:44 Date Recorded Heart rate Provider Name an d Address Organization Details Last Updated DateTime 05/26/2023 83 /min LIZ MINEO PA - [facility] 1 07/26/2022 10:49:01 Date Recorded Respiratory rate Provider Name a nd Address Organization Details Last Updated DateTime 05/26/2023 22 /min LIZ MINEO PA - [facility] 1 07/26/2022 10:49:07 Date Recorded Body temperature Provider Name a nd Address Organization Details Last Updated DateTime 05/26/2023 98.4 [degF] LIZ MINEO PA - [facility] 05/26/2023 10:49:18 Date Recorded Systolic blood pressure Diastolic blood pressure Provider Name and Address Organization Details Last Updated DateTime 02/13/2023 124 mm[Hg] 79 mm[Hg] Amarilis Langford PA - [facility] 02/13/2023 16:47:52 Date Recorded Systolic blood pressure Diastolic blood pressure Provider Name and Address Organization Details Last Updated DateTime 05/26/2023 120 mm[Hg] 80 mm[Hg] LIZ DOTSON PA - [facility] 05/26/2023 10:48:39 Social History Question Answer Notes LastModified by Organizat ion Details LastModified Time Tobacco Smoking Status Never Smoker Amarilis steward PA - [facility] 02/13/2023 16:46:14 What Is Your Level Of Alcohol Consumption? None Information not available 02/13/2023 Have You Had Direct Contact, Or Contact During Intimacy, With Monkeypox Rash, Scabs, Or Body Fluids From A Person With Monkeypox? No Information not available 02/13/2023 Do You Use Any Illicit Or Recreational Drugs? No Information not available 02/13/2023 Have You Recently Traveled Abroad? No Information not available 02/13/2023 Do You Or Have You Ever Used Any Other Forms Of Tobacco Or Nicotine? No Information not available 02/13/2023 Sex: Unknown Functional Status None recorded. Mental Status None recorded. Family History Relationship Description Onset Age of this Age Resolved Age Notes LastModified by Organization Details LastModified Time Father No current problems or disability Not available 02/13 16:45:40 Mother No current problems or disability Not available 02/13 16:45:40 Medical History No medical history recorded. Immunizations Vaccine Type Date Status Note Provider Nam e and Address Organization Details Recorded Time Influenza, MDCK, quadrivalent, PF 0 completed Amarilis Anastasiya bin PA - [facility] 02/13/2023 16:45:01 COVID-19, mRNA, LNP-S, PF, 100 mcg/0.5mL dose or 50 mcg/0.25mL dose 1 completed Amarilis Siloam null PA - [facility] 02/13/2023 16:45:01 COVID-19, mRNA, LNP-S, PF, 100 mcg/0.5mL dose or 50 mcg/0.25mL dose 1 completed Amarilis Anastasiya null, PA - [facility] 02/13/2023 16:45:01 COVID-19, mRNA, LNP-S, PF, 30 mcg/0.3 mL dose 1 completed Amarilis Siloam null, PA - [facility] 02/13/2023 16:45:01 Influenza, split virus, trivalent, preservative 6 completed Amarilis Anastasiya null, PA - [facility] 02/13/2023 16:45:01 Influenza, split virus, trivalent, preservative 7 completed Amarilis Anastasiya null, PA - [facility] 02/13/2023 16:45:01 Td (adult), 2 Lf tetanus toxoid, preservative free, adsorbed 7 completed Amarilis Siloam null, PA - [facility] 02/13/2023 16:45:01 Influenza, split virus, quadrivalent, PF 9 completed Amarilis Siloam null, PA - [facility] 02/13/2023 16:45:01 Past Encounters Encounter ID Performer Location Encounter Start Date Encounter Closed Date Diagnosis/Indication Diagnosis SNOMED-CT Code Diagnosis ICD10 Code Diagnosis Note [id number] [address] [address] [place] [phone] 11/30/2018 15:22:48 11/30/2018 15:59:16 [id number] [address] [place] [phone] 02/18/2018 14:57:27 02/18/2018 16:32:45 [id number] Dennise [facility] [address] [place] [id number] 02/13/2023 16:25:27 02/13/2023 19:24:40 Syncope 736229773 R55 Pain of ri ght elbow joint 3372139778 3776828 M25.521 Acute exac erbation of chronic obstructive pulmonary disease 814018348 J44.1 [id number] Shaina Herman, ASTON [address] [address] [place] [address] 05/26/2023 10:27:07 05/26/2023 11:12:25 Acute exacerbation of chronic obstructive pulmonary disease 474427267 J44.1 Continue with the nebulizer treatments at home . Use your rescue inhaler as needed . A return to work note is provided for you If you have chronic obstructiv e pulmonary disease (COPD), your usual shortness of breath could suddenly get worse. You may start coughing more and have more mucus. This flare-up is called a COPD exacerbati on (say yoletteBRIDGETShantelbri FunesKIKIroberto carlos ). A lung infection or air pollution could set off an exacerbati on. Sometimes it can happen after being around chemicals. Work with your doctor to make a plan for dealing with an exacerbati on. You can better manage it if you plan ahead. Follow-up care is a iverson part of your treatment and safety. Be sure to make and go to all appointmen ts, and call your doctor if you are having problems. It's also a good idea to know your test results and keep a list of the medicines you take. During an exacerbati on Do not panic if you start to have one. Quick treatment may help you prevent serious breathing problems. If you have a COPD exacerbati on plan that you developed with your doctor, follow it. Take your medicines exactly as your doctor tells you. Use your inhaler as directed by your doctor. If your symptoms do not get better after you use your medicine, have someone take you to the emergency room. Call an ambulance if necessary. With inhaled medicines, a spacer or a nebulizer may help you get more medicine to your lungs. Ask your doctor or pharmacist how to use them properly. Practice using the spacer in front of a mirror before you have an exacerbati on. This may help you get the medicine into your lungs quickly. If your doctor has given you steroid pills, take them as directed. Your doctor may have given you a prescripti on for antibiotic s, which you can fill if you need it. Talk to your doctor if you have any problems with your medicine. And call your doctor if you have to use your antibiotic or steroid pills. Call anytime you think you may need emergency care. For example, call if: You have severe trouble breathing. You have severe chest pain. Call your doctor now or seek immediate medical care if: You have new or worse shortness of breath. You develop new chest pain. You are coughing more deeply or more often, especially if you notice more mucus or a change in the color of your mucus. You cough up blood. You have new or increased swelling in your legs or belly. You have a fever. Watch closely for changes in your health, and be sure to contact your doctor if: You need to use your antibiotic or steroid pills. Your symptoms are getting worse. Health Concerns Section Related Observation LastModified by Organization Detai ls LastModified Time None Recorded Concern Status LastModified by Organization Details LastModified Time None Recorded Advance Directives Directive None Recorded Payers Encounter Date Sequence Insurance Name Policy Number Policy Correa Covered Member ID Correa Member ID Guarantor Name 11/30/2018 2 [place] [id number] Francis Hurtadoo [id number] Francis Renteriaolasio 02/13/2023 1 [place] [facility] Francis Dassio [id number] Francis Renteriaolasio 05/26/2023 1 [place] [employer] [facility] [id number] Francis Dassio [id number] Francis Dassio Notes Date Note Type Note Provider Name and Address Organization Details Recorded Time 3 text/html Syncope / DizzinessReported bypatient.Quality:lighthead ed Severity:syncope Duration:4 days ago for a few seconds. Onset/Timing:Once. Context:standing; Coughing vigorously. Alleviating Factors:relieved with supine position Aggravating Factors:coughing. Associated Symptoms:no recent diarrhea; no recent vomiting; no associated palpitationsUpper Arm / Elbow InjuryReported bypatient.source of patient informationInformation obtained from patient; Patient arrived at Urgent Care ambulatory Location:right; elbow; posterior; medial; lateral Quality:aching; constant Severity:moderate Duration:4 days Timing:acute Context:fall Alleviating Factors:rest Aggravating Factors:ROM Associated Symptoms:no weakness; no numbness; no tingling; no catching/locking; no popping/clicking; no grinding; no instability; no radiation down arm;swelling;ecchymosis Previous InjuryNo prior injury to affected body part Previous Treatmentnone Prior Imaging:noneNotes:62 year old male presenting for evaluation of right elbow pain, swelling and bruising after a syncopal event 4 days ago. The patient reports that his copd has been acting up for one month and he has been coughing a lot. He finished a course of prednisone 5 days ago that helped a little. He states that 4 days ago he was coughing a lot during the night, got out of his bed to go to the kitchen and on the way back to bed he started coughing a lot, felt light headed and passed out. He fell onto the floor landing on his right arm. He denies any head injury. No neck, back, chest or abdominal pain. No palpitations. No prior syncopal events. 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 No numbness or weakness distal to the elbow. He has some wheezing and shortness of breath from his copd and his cough is occasionally productive. Dennise Young MD [address] [place], [address], [facility] 02/13/2023 19:25:42 3 text/html CoughReported bypatient.source of patient informationInformation obtained from patient; Patient arrived at Urgent Care ambulatory Quality:dry and wet; intermittent Severity:moderate Duration:4 days Timing:sudden Context:Patient denies vaping; non-smoker;history of asthma Modifying Factors:Cough Suppressant Associated Symptoms:no fever; no chills; no chest pain; no heartburn; no nausea; no vomiting; no edema; no agitation; no post nasal drip;wheezing(mild) Patient states that on Wednesday night had the window opened and woke up with sob, cough. Today feels improvement. HX COPD and asthma. Uses inhaler and nebulizer at home with sx improvement . requesting note to return to work. Shaina Herman NP [address] [place], [address], [facility] 05/26/2023 11:13:07
--- NOTE | 2024-08-18 15:22 | A.OFFVIS_ITS ---
Vital Signs 08/18/24 15:23 Height 5 ft 11 in Weight 213 lb 13.574 oz BMI 29.8 BP 120/80 Blood Pressure Location Lt brachial Position Sitting Pulse 73 Pulse Source Pulse Oximeter Pulse Oximetry (%) 93 Oxygen Delivery Method Room Air Intake Visit Reasons: asthma & emphysema Intake Note: started smoking at 34, quit at 54 Custom Furrier Required: No Allergies No Known Allergies Allergy (Verified 08/18/24 15:26) HPI HPI asthma & emphysema: Details: 64-year-old gentleman, former approximately 20 pack-year smoker, quit within last 10 years, with underlying history of asthma since childhood previously controlled on Trelegy, over the last few years with worsening control and multiple breakthrough episodes. Patient does have family history of asthma in his son. 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 [facility] Medical History (Updated 08/18/24 @ 15:48 by Toi Christensen MD) Hyperplastic rectal polyp Former smoker History of diplopia Chronic pain GERD (gastroesophageal reflux disease) Asthma BPH (benign prostatic hyperplasia) H/O urinary frequency Surgical History (Updated 07/13/24 @ 11:24 by Denice Gallardo [facility]) History of tonsillectomy History of prostate surgery Family History (Updated 07/13/24 @ 11:25 by RENO Wilson) Brother Testicular cancer Social History (Updated 08/18/24 @ 15:28 by Aretha Mclaughlin [facility]) Alcohol intake: former Patient Tobacco Use Status: Former Tobacco user Years Smoked: 20 Review of Systems Const Denies daytime sleepiness, Denies excessive sweating, Denies fatigue, Denies fever(s), Denies lethargy, Denies malaise, Denies night sweats, Denies snoring and Denies weight loss Eyes Denies blurry vision and Denies itchy eyes ENT Denies nasal congestion, Denies post nasal drip, Denies sinus pain, Denies sinus pressure and Denies other ( Thrush) Card Denies chest pain, Denies pedal edema, Denies dyspnea, Denies orthopnea and Denies paroxysmal nocturnal dyspnea Resp Denies cough, Denies hemoptysis, Denies excessive phlegm production, Denies dyspnea, Denies snoring and Denies wheezing GI Denies abdominal pain and Denies heartburn Musc Denies myalgias, Denies arthralgias and Denies joint swelling Skin/Breast Denies rash Neuro Denies memory loss and Denies seizure-like activity Psych Denies abnormal sleep pattern, Denies anxiety and Denies memory loss Endo Denies excessive sweating, Denies fatigue and Denies heat intolerance Etienne/Lymph Denies easy bruising Aller/Immun Denies itchy eyes, Denies seasonal rhinorrhea and Denies wheezing Physical Exam Vital Signs: Last Vital Signs Pulse 73 08/18/24 15:23 BP 120/80 08/18/24 15:23 Pulse Ox 93 08/18/24 15:23 Oxygen Delivery Method Room Air 08/18/24 15:23 BMI result Body Mass Index 29.8 Const General: no acute distress and alert Nutritional Appearance: not obese Orientation/consciousness: Other orientation findings ( oriented) HEENT Head: Yes atraumatic Eyes General: appearance normal, both eyes and all related structures Sclerae: sclerae normal EOM: EOMs intact bilaterally Neck Neck: Yes supple Lymphatic: no lymphadenopathy noted Resp Effort & Inspection: normal respiratory effort and no use of accessory muscles Auscultation: clear to auscultation bilaterally Cardio Rate: regular rate Rhythm: regular rhythm Heart sounds: no gallops, no murmurs and no rubs Skin General skin exam: other ( warm) Extrem General: No clubbing, No cyanosis and No edema Assessment & Plan Assessment & Plan (1) Asthma: Code(s): J45.909 - Unspecified asthma, uncomplicated Category: Medical Plan: Asthma of unclear severity. Will obtain full PFT. Will restart trilogy and continue albuterol MDI. (2) Environmental allergies: Code(s): Z91.09 - Other allergy status, other than to drugs and biological substances Category: Medical Plan: Will obtain IgE level, CBC with differential, and RAST panel for further evaluation. (3) Personal history of nicotine dependence: Code(s): Z87.891 - Personal history of nicotine dependence Category: Medical Plan: Will obtain lung cancer screening CT chest. Orders: Orders CT lung screening Today Z87.891 - Personal history of nicotine dependence Complete Blood Count Auto Diff Today Z91.09 - Other allergy status, other than to drugs and biological substances Resp Allergy Profile Region I Today Z91.09 - Other allergy status, other than to drugs and biological substances PFT pulmonary function test Today J45.909 - Unspecified asthma, uncomplicated Medications: New pztwzqxxuxo-gamisvrqv-ykzfsylm 200-62.5-25 mcg (Trelegy Ellipta) 1 inh inhalation DAILY 1 ea 6RF Coding Level of Care Code New Pt Level 4 (26027) Diagnoses Asthma J45.909 Environmental allergies Z91.09 Personal history of nicotine dependence Z87.891
[2024-08-18 15:23] VITALS: BP 120/80; PULSE 73; O2SAT 93; BMI 29.8
== END 2024-08-18 15:49 | disposition home or self-care (01) ==
PROVIDERS: PCP Internal Medicine Medical Oncology; Visit Provider Internal Medicine Pulmonary Disease
DX: J45.909 Unspecified asthma, uncomplicated (principal); Z91.09 Other allergy status, other than to drugs and biological substances; Z87.891 Personal history of nicotine dependence
CPT/HCPCS: 99204

== ENCOUNTER → 2024-08-18 14:41 | Outpatient (BNVA) | payer BC, SELFPAY | PROVIDERS: PCP Internal Medicine Medical Oncology; Visit Provider Internal Medicine Pulmonary Disease ==

== ENCOUNTER 2024-09-07 08:49 | Emergency (ER) | payer BC, SELFPAY ==
[2024-09-07] VITALS (7 sets, daily range): BP systolic 111–126; BP diastolic 78–85; PULSE 77–96; RESP 17–26; TEMP 36.6–37; O2SAT 87–93; BMI 27.1
--- NOTE | ~2024-09-07 | XR_ITS ---
EXAMINATION: XR CHEST CLINICAL INFORMATION: SOB COMPARISON: None available. Correlation made with CT chest 07/24/2014. TECHNIQUE: Frontal view of the chest was obtained. FINDINGS: The cardiac, hilar, and mediastinal contours are normal. The lungs are clear bilaterally. No pneumothorax or effusion. No focal osseous or soft tissue abnormality. There are degenerative changes in both shoulder joints and throughout the spine. Surgical anchor left humeral head. Narrowed subacromial space bilaterally suggesting rotator cuff tearing. XR/XR chest 1V IMPRESSION: No active pulmonary disease. Electronically signed by: Phong Matute MD 09/07/2024 09:55 AM EST
--- NOTE | 2024-09-07 09:14 | PC.NURSE ---
Pt comes to ED today c/o SOB and cough x4 days that continues to worsen. Pt states Hx asthma and has been using his inhalers however no improvement. Cough is dry and worsens with cold weather. Pt reports he has coughed so hard he has a CASH and has fallen in the past. A&Ox3 VSS, afebrile Frequent cough noted, non-productive. Skin is warm and dry Breaths and speech are unlabored. Pt sating at 93% RA Awaiting ED provider.
--- NOTE | 2024-09-07 09:36 | ECG_ITS ---
Test Reason : SOB Blood Pressure : */* mmHG Vent. Rate : 84 BPM Atrial Rate : 84 BPM P-R Int : 140 ms QRS Dur : 74 ms QT Int : 368 ms P-R-T Axes : 47 -28 30 degrees QTcB Int : 434 ms Normal sinus rhythm Normal ECG When compared with ECG of 16-Sep-2023 10:32, No significant change was found Referred By: Nolan Carbajal Electronically Signed By: SAMANTHA MILES
--- NOTE | 2024-09-07 09:38 | ED_ITS ---
HPI - General Adult General Chief complaint: Dyspnea Stated complaint: asthma diff breathing Time Seen by Provider: 09/07/24 09:15 Source: patient Mode of arrival: ambulatory Limitations: no limitations History of Present Illness ED Provider: DR. Carbajal HPI narrative: 64-year-old male former smoker approximately 20 pack-year quit 10 years ago patient with history of asthma since childhood, patient use albuterol inhaler and nebulizer at home with no relief of symptoms. Been having difficulty breathing and wheezing over a week that is getting worse, shortness of breath is worse with exertion and walking. No history of using supplemental oxygen at home. Reports cough with no sputum production, no fever, no chills, no sick contacts, no recent travel, no lower extremity swelling or tenderness. Related Data Home Medications ?Medication ?Instructions ?Recorded ?Confirmed albuterol sulfate 90 mcg/actuation 2 puff inhalation Q6H PRN 08/18/24 aerosol inhaler (Ventolin HFA) Previous Rx's ?Medication ?Instructions ?Recorded tamsulosin 0.4 mg capsule 0.4 mg PO BEDTIME kidney stone 14 01/28/24 days #14 caps fluticasone fur. 200 mcg-umeclid 1 inh inhalation DAILY #1 ea 08/18/24 62.5 mcg-vilant 25 mcg inhalat.powder (Trelegy Ellipta) doxycycline hyclate 100 mg tablet 100 mg PO BID #14 tabs 09/07/24 prednisone 20 mg tablet 20 mg PO BID #10 tabs 09/07/24 Allergies Allergy/AdvReac Type Severity Reaction Status Date / Time No Known Allergies Allergy Verified 09/07/24 09:08 Review of Systems 2 Review of Systems: All other systems are reviewed and are negative Constitutional: Reports as per HPI and Reports no additional constitutional complaints Eyes: Reports as per HPI and Reports no additional eye complaints Reports system reviewed and no additional complaints, except as documented Cardiovascular: Reports as per HPI and Reports no additional cardiovascular complaints Respiratory: Reports as per HPI and Reports no additional respiratory complaints Gastrointestinal: Reports as per HPI and Reports no additional gastrointestinal complaints Genitourinary: Reports no additional female genitourinary complaints Musculoskeletal: Reports no additional musculoskeletal complaints Skin/Breast: Reports system reviewed and no additional complaints, except as docu Psychiatric: Reports no additional psychiatric complaints Endocrine: Reports no additional endocrine complaints Hematologic/Lymphatic: Reports no additional hematologic/lymphatic complaints Allergic/Immunologic: Reports no additional allergic/immunologic complaints Reports system reviewed and no additional complaints, except as documented and Reports Abnormal speech present [facility] Past Medical History Medical History Hyperplastic rectal polyp Former smoker History of diplopia Chronic pain GERD (gastroesophageal reflux disease) Asthma BPH (benign prostatic hyperplasia) H/O urinary frequency Surgical History History of tonsillectomy History of prostate surgery Family History Family History Brother Testicular cancer Social History Social History Alcohol intake: former Patient Tobacco Use Status: Former Tobacco user Years Smoked: 20 Smoked in Last 30 Days: No Use of substances other than those prescribed or required for medical reasons: No Advance Directives: No Advance Directives Information Provided: Yes Do you have a plan to hurt others: No Plan Physical Exam ED Vital Signs: Vital Signs - 24 hr 09/07/24 09:06 09/07/24 09:08 09/07/24 09:10 Temperature 98.6 F 97.9 F Pulse Rate 96 77 Respiratory Rate 26 H 20 Blood Pressure 125/85 111/84 Pulse Oximetry 93 93 Oxygen Delivery Method Room Air Room Air Oxygen Flow Rate 09/07/24 09:59 09/07/24 13:00 09/07/24 13:01 Temperature Pulse Rate 81 Respiratory Rate 17 Blood Pressure Pulse Oximetry 87 L 92 Oxygen Delivery Method Room Air Nasal Cannula Oxygen Flow Rate 4 BMI result Body Mass Index 27.1 Vital signs have been reviewed and appear to be correct. Blood pressure elevated. Heart rate normal. Respiratory rate normal. Temperature normal. Oxygen saturation normal. Appearance: Alert. Oriented X3. No acute distress. Head: Normal external exam. Normocephalic. Atraumatic. No Rubin signs noted. No raccoon eyes noted Eyes: PERRLA. EOMI. Conjunctiva and sclera normal. Eyelids normal. ENT: TM's Normal. Pharynx normal. Uvula midline. Moist mucous membranes. No trismus noted. No drooling noted. No muffled voice noted. Neck: Normal inspection. Neck supple. FROM. No adenopathy. Thyroid Normal. No meningeal signs. No neck mass noted. CVS: Normal heart rate and rhythm. Heart sound normal. No murmurs noted. Pulses normal throughout. Respiratory: Mild respiratory distress. Painless inspiration. Breath sounds normal. Diffuse expiratory wheezing with prolonged expiration. Chest nontender. No accessory muscle usage noted or decreased air movement noted. Abdomen: Soft and nontender. Bowel sounds normal in all 4 quadrants. No distention noted. No organomegaly noted. No visible injury noted. Back: No CVA tenderness. Full range of motion noted. Skin: Skin warm and dry. Normal skin color. Normal skin turgor. No rashes/lesions/lacerations noted. Extremities: No lower extremity edema. Extremities exhibit normal range of motion. Extremities nontender. Neuro: Oriented X 3. Cranial nerve exam: II-XII are grossly intact No motor deficit. No sensory deficit. Reflexes normal. Course Reevaluation(s) Reevaluation #1: 64-year-old male former smoker with history of COPD came in with COPD exacerbation at some point patient had O2 sat of 87% on room air patient was placed 2 L of nasal cannula with improvement of 02 to 92%. Patient is subjectively feels better but I was concerned about his low O2 sat on room air, patient is AAO x3 I explained to the patient risk of leaving against medical advice and being hypoxic which may lead to severe hypoxia and internal organ damage and it may lead to patient accepts the risk of leaving against medical advice and still has to go to take care of his elderly mother at home. Otherwise will prescribe the patient albuterol, short course of Z-Markus, and prednisone. 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 Time: 15:37 Medications Administered Discontinued Medications Generic Name Dose Route Start Last Admin Trade Name Freq PRN Reason Stop Dose Admin Albuterol Sulfate 2.5 mg/ 5 mg 09/07/24 09:51 09/07/24 09:58 Albuterol Sulfate 2.5 mg INHALE 09/07/24 09:52 5 mg ONCE ONE Administration Doxycycline Hyclate 100 mg/ 250 mls @ 166.67 mls/hr 09/07/24 09:36 09/07/24 11:46 Sodium Chloride IV 09/07/24 11:05 Infused ONCE ONE Infusion Methylprednisolone Sodium Succinate 125 mg 09/07/24 09:36 09/07/24 10:09 Methylprednisolone Sod Succ 125 Mg/2 Ml Vial IVPUSH 09/07/24 09:37 125 mg ONCE ONE Administration Medical Decision Making Differential Diagnosis Differential Diagnoses: The differential diagnosis associated with the presentation includes (Pneumonia, pneumothorax, pleural effusion, severe anemia, electrolyte derangement, asthma exacerbation, COPD exacerbation.) Admission/Observation Consideration of admission/observation: Escalation of care including admission/observation considered Lab Data MDM Lab Attestation statement: I reviewed the patient's lab results. 09/07/24 10:00 09/07/24 09:58 Labs: Lab Results 09/07/24 09/07/24 09/07/24 Range/Units 09:58 10:00 10:17 WBC 10.2 (4.8-10.8) X10*3/uL RBC 5.56 (4.60-5.80) X10*6/uL Hgb 17.6 D (14.0-18.0) g/dl Hct 50.3 (42.0-52.0) % MCV 90.5 (80.0-98.0) fL MCH 31.7 (27.0-33.0) pg MCHC 35.0 (31.0-36.0) g/dl RDW 13.5 (11.0-16.0) % Plt Count 221 D (160-400) X10*3/uL MPV 10.1 (9.4-12.4) fL Immature Gran % (Auto) 0.5 H (0.0-0.4) % Neut % (Auto) 76.6 H (45-73) % Lymph % (Auto) 11.6 L (20-40) % [place] % (Auto) 7.9 (2-11) % Eos % (Auto) 2.8 (0-4) % Baso % (Auto) 0.6 (0-2) % Lymph # (Auto) 1.2 (1.2-4.9) X10*3/uL [place] # (Auto) 0.8 (0.1-1.2) X10*3/uL Eos # (Auto) 0.3 (0.0-0.4) X10*3/uL Baso # (Auto) 0.1 (0.0-0.2) X10*3/uL Abs Immat Gran (auto) 0.05 H (0.00-0.03) X10*3/uL Absolute Neuts (auto) 7.8 (2.0-8.3) x10*3/uL Absolute Nucleated RBC 0.000 (0.0-0.012) X10*3/uL Nucleated RBC % (auto) 0.0 (0.0-0.2) /100WBC PT 12.6 H (10.9-12.4) SEC INR 1.1 (0.9-1.1) Sodium 139 (135-145) mmol/L Potassium 4.3 (3.3-5.1) mmol/L Chloride 103 (96-108) mmol/L Carbon Dioxide 27 (22-29) mmol/L Anion Gap 13 (12-20) BUN 13 (9-16) mg/dL Creatinine 1.15 (0.5-1.4) mg/dL Estim Creat Clear Calc 70.2 Estimated GFR > 60 Random Glucose 100 (60-115) mg/dL Lactic Acid 1.7 (0.5-2.0) mmol/L Calcium 9.2 (8.4-10.2) mg/dL Total Bilirubin 0.9 (0.0-1.0) mg/dL Direct Bilirubin 0.5 (0.0-0.5) mg/dL AST 44 H (5-37) U/L ALT 58 H (0-40) U/L Alkaline Phosphatase 78 (39-117) U/L Troponin I High Sens 4.5 (<3.5-35.0) ng/L B-Natriuretic Peptide < 10 (<100) pg/mL Total Protein 7.8 (6.5-8.0) g/dL Albumin 4.3 (3.5-5.0) g/dL Lipase 18 (8-78) U/L Influenza Type A (PCR) NEGATIVE (Negative) Influenza Type B (PCR) NEGATIVE (Negative) RSV RNA Qual (PCR) NEGATIVE (Negative) SARS-CoV-2 RNA (RT-PCR) NEGATIVE (Negative) Independent Interpretation I performed an independent interpretation of an: Plain X-Ray (Chest: No active pulmonary disease.) Radiology Impression Discussion of test interpretation with radiology: I have reviewed the radiologist's reading. Discharge Plan Discharge Clinical Impression: Acute exacerbation of chronic obstructive airways disease Patient Disposition: Left Against Medical Advice Instructions: COPD (Chronic Obstructive Pulmonary Disease) (ED) Prescriptions: New prednisone 20 mg tablet 20 mg PO BID Qty: 10 0RF doxycycline hyclate 100 mg tablet 100 mg PO BID Qty: 14 0RF No Action tamsulosin 0.4 mg capsule 0.4 mg PO BEDTIME 14 Days Qty: 14 0RF albuterol sulfate [Ventolin HFA] 90 mcg/actuation HFA aerosol inhaler 2 puff inhalation Q6H PRN Trelegy Ellipta 200-62.5-25 mcg blister with device 1 inh inhalation DAILY Qty: 1 6RF Referrals: Marco Antonio Mchugh MD [Primary Care Provider] - Stand Alone Forms: Against Medical Advice Print Language: Kyrgyz
--- OUTSIDE RECORDS SUMMARY | 2024-09-07 09:57 | XMS_ITS ---
Author Organization Marco Antonio Mchugh III, MD Address [address] [place] [address] Care Team Providers Care Software Release Engineer Name Role Phone Marco Antonio Mchugh Primary Care Provider Allergies Allergen (clinical drug ingredient) Drug/Non Drug Allergy documented on EMR Reaction Allergy Type Onset Date Status No Known Drug Allergy Unknown Drug Allergy Active REASON FOR VISIT Viral syndrome, Benign prostatic hypertrophy, Asthma, GERD, Emphysema, Obesity Medications Medication SIG (Take, Route, Frequency, Duration) Notes Start Date End Date Status Tamsulosin HCl 0.4 MG 1 capsule Orally O nce a day 05/23/2024 Active Omeprazole 20 MG TAKE 1 CAPSULE BY [facility] EVERY DAY 30 MINUTES BEFORE BREAKFAST Active Trelegy Ellipta 200-62.5-25 MCG/ACT 1 puff Inhalation Once a day 06/27/2024 Active Ventolin HFA 108 (90 Base) MCG/ACT 1 puff as needed Inhalation for wheezing 04/30/2024 Active Tamsulosin HCl 0.4 MG 1 capsule Orally O nce a day 05/23/2024 Active Social History Tobacco Use: Social History Observation Description Date Details (start date - stop date) Former Smoker NA - NA Sex Assigned At : Social History Observation Description Sex Assigned At Male Tobacco Control (Standard) Question Answer Notes Tobacco use: Former smoker Problems Problem Type SNOMED Code ICD Code Onset Dates Problem Status W/U Status Risk Notes Problem [id number] Acute viral syndrome (B34.9) Active confirmed He has a three-day history of a sore throat cough productive of thick white phlegm fever to 101 degree(s) myalgias nausea loose stool and rhinorrhea. He was instructed to consume large amounts of fluid and use acetaminophen. He has tested negative for Covid. He will report to me every other day until he has recovered. Encounters Encounter Location Date Provider Diagnosis Marco Antonio Mchugh III, MD [address] [place] [address] [place] [address] 08/25/2024 Marco Antonio Mchugh Acute viral syndrome B34.9 ; Benign prostatic hyperplasia, unspecified whether lower urinary tract symptoms present N40.0 ; Gastroesophageal reflux disease, esophagitis presence not specified K21.9 ; Moderate persistent asthma without complication J45.40 ; Rotator cuff arthropathy of left shoulder M12.812 ; Rotator cuff arthropathy of right shoulder M12.811 ; Former smoker Z87.891 ; Other chronic pain G89.29 ; Centrilobular emphysema J43.2 and Obesity (BMI 30.0-34.9) E66.9 Assessments Encounter Date Diagnosis (ICD Code) Assessment Notes Treat ment Notes Treatment Clinical Notes 08/25/2024 Acute viral syndrome (ICD-10 - B34.9) He has a three-day history of a sore throat cough productive of thick white phlegm fever to 101 degree(s) myalgias nausea loose stool and rhinorrhea. He was instructed to consume large amounts of fluid and use acetaminophen. He has tested negative for Covid. He will report to me every other day until he has recovered. 08/25/2024 Benign prostatic hyperplasia, unspecified whether lower urinary tract symptoms present (ICD-10 - N40.0) He is taking tamsulosin. He has an appointment with urology in the near future and has seen them recently. He has a history of a partial prostatectomy in the past. He has no symptoms of infection, however. We discussed lifestyle modifications at night help his nocturia. 08/25/2024 Gastroesophageal reflux disease, esophagitis presence not specified (ICD-10 - K21.9) He was continued on his omeprazole. 08/25/2024 Moderate persistent asthma without complication (ICD-10 - J45.40) His wheezing is allergy related and he has no wheezing recently. He will be seen in the spring to monitor this problem. 08/25/2024 Rotator cuff arthropathy of left shoulder (ICD-10 - M12.812) He reports no change in the status of the pain in the shoulder. He will continue on current therapy without change. 08/25/2024 Rotator cuff arthropathy of right shoulder (ICD-10 - M12.811) Dear has been no change in the shoulder pain. He has been able to perform activities of daily living, however. 08/25/2024 Former smoker (ICD-1 0 - Z87.891) He seems highly motivated not to smoke and we discussed a plan to prevent relapse in times of stress or illness or tapering narcotic medication. 08/25/2024 Other chronic pain (ICD-10 - G89.29) He is no longer receiving narcotic medication. The pain is slightly improved. 08/25/2024 Centrilobular emphysema (ICD-10 - J43.2) He had a CT scan in the past, who evaluated cough and had early centrilobular emphysema. He is now stop smoking. 08/25/2024 Obesity (BMI 30.0-34.9) (ICD-10 - E66.9) He has lost 2 pounds. His body mass index is 31. We discussed his weight loss strategies at length. He will continue losing weight. Plan Of Treatment Medication Medication Name Sig Start Date Stop Date Notes Tamsulosin HCl 0.4 MG 1 capsule Orally Once a day 05/23/20 24 Omeprazole 20 MG TAKE 1 CAPSULE BY [facility] EVERY DAY 30 MINUTES BEFORE BREAKFAST Trelegy Ellipta 200-62.5-25 MCG/ACT 1 puff Inhalation Once a day 06/27/2024 Ventolin HFA 108 (90 Base) MCG/ACT 1 puff as needed Inhalation for wheezing 04/30/2024 Tamsulosin HCl 0.4 MG 1 capsule Orally Once a day 05/23/20 24 Next Appt Details Follow Up: Wednesday, Reason: T o report on the condition of the patient's upper respiratory infection. Provider Name:Marco Antonio Mchugh, 01/17/2025 04:00:00 PM, [address] [place] [address] [address] [place], [place], [address], Progress Notes * [facility] FDOB: (64 yo M)Acc No.[id number]:08/25/2024 Patient:?[facility] Provider:?Marco Antonio Mchugh MD :1960???Age:64 Y???Sex:Male Jorge e:08/25/2024 Address:[address] [place] [address], [place] [address], [id number] Subjective: * Chief Complaints: * ???Viral syndromeBenign pros tatic hypertrophyAsthmaGERDEmphysemaObesity * HPI: ???COVID-19 Screening:?Questions?Have you had any new onset fever, chills, cough, congestion, sore throat, shortness of breath, muscle aches??No ???:? The patient, a 64-year-old male, presented with symptoms of an upper respiratory infection, which he believes he contracted from his girlfriend who had pneumonia. His symptoms began with a fever, which has since subsided, and he is currently experiencing a significant cough and sore throat. He also reported some diarrhea. The patient has been tested for COVID-19. He reported feeling better than he had been, suggesting that his symptoms may be improving. He also mentioned some wheezing, but not severe. * ROS:?General/Constitutional:?pain?Sore throat and muscle aches.?Chills?denies.?Fatigue?admits.?Fever?up to 101 degrees.?ENT:?Decreased hearing?denies.?Respiratory:?Cough?worse at night.?Cardiovascular:?Chest pain with exertion?denies.?Dyspnea on exertion?denies.?Shortness of breath?with exertion.?Gastrointestinal:?Constipation?denies.?Decreased appetite?denies.?Admits?Diarrhea,?denies.?Heartburn?occasional.?Nausea?denies.?R ectal bleeding?denies.?Vomiting?denies.?Hematology:?bruising?denies.?petechiae?denies.?Swollen glands?none have been noted.?Genitourinary:?Frequent urination?twice a night.?Musculoskeletal:?Muscle aches?denies.?Painful joints?denies.?Sciatica?denies.?Weakness?that is generalized.?Skin:?Itching?denies.?Rash?denies.?Skin lesion(s)?denies.?Neurologic:?Difficulty speaking?denies.?Dizziness?denies.?Headache?denies.?Low back pain?denies.?Psychiatric:?Depressed mood?denies.? * Medical History:? * Surgical History:?tonsillect [place] childrotator cuff tear repair/ left shoulder 1999fall on ice, torn right rotator cuff 2012upper endoscopy with dilatation of Schatzki ring 01/2010colonoscopy, hyperplastic rectal polyp 05/2013negative upper endoscopy 12/2015prostate surgery 2Partial prostate removal No history * Hospitalization/Major Diagno stic Procedure:?No history * Family History:?Father: dece ased, No information.?Mother: alive, Osteoarthritis, ovarian cancer, diagnosed with Cancer.?Siblings: alive.?1 brother(s) . 2 son(s) . .? His mother from ovarian cancer. His brother has a history of testicular cancer at age 36. Two sons are healthy and well. Lung problems. 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 He has no toxic exposures. He no longer smokes. {'Smoking': 'No current smoking habits', 'Family History': 'Lung problems'}. * Medications:?TakingTamsulosi n HCl 0.4 MG Capsule 1 capsule Orally Once a day Omeprazole 20 MG Capsule Delayed Release TAKE 1 CAPSULE BY MOUTH EVERY DAY 30 MINUTES BEFORE BREAKFAST Trelegy Ellipta 200-62.5-25 MCG/ACT Aerosol Powder Breath Activated 1 puff Inhalation Once a day Ventolin HFA 108 (90 Base) MCG/ACT Aerosol Solution 1 puff as needed Inhalation for wheezing Taking Tamsulosin HCl 0.4 MG Capsule 1 capsule Orally Once a day Taking Omeprazole 20 MG Capsule Delayed Release TAKE 1 CAPSULE BY MOUTH EVERY DAY 30 MINUTES BEFORE BREAKFAST Taking Trelegy Ellipta 200-62.5-25 MCG/ACT Aerosol Powder Breath Activated 1 puff Inhalation Once a day Taking Ventolin HFA 108 (90 Base) MCG/ACT Aerosol Solution 1 puff as needed Inhalation for wheezing DiscontinuedTamsulosin HCl 0.4 MG Capsule 1 capsule Orally Once a day Ventolin HFA 108 (90 Base) MCG/ACT Aerosol Solution INHALE 2 PUFFS BY MOUTH EVERY 4 HOURS NEEDED Medication List reviewed and reconciled with the patientDiscontinued Tamsulosin HCl 0.4 MG Capsule 1 capsule Orally Once a day Discontinued Ventolin HFA 108 (90 Base) MCG/ACT Aerosol Solution INHALE 2 PUFFS BY MOUTH EVERY 4 HOURS NEEDED Medication List reviewed and reconciled with the patient * Allergies:?No Known Drug All ergyno[Allergies Verified] Objective: * Vitals:? Assessment: * Assessment: 1.?Acute viral syndrome - B3 4.9 (Primary)???Notes :He has a three-day history of a sore throat cough productive of thick white phlegm fever to 101 degree(s) myalgias nausea loose stool and rhinorrhea.? He was instructed to consume large amounts of fluid and use acetaminophen.? He has tested negative for Covid.? He will report to me every other day until he has recovered.???2.?Benign prostatic hyperplasia, unspecified whether lower urinary tract symptoms present - N40.0???Notes :He is taking tamsulosin. He has an appointment with urology in the near future and has seen them recently. He has a history of a partial prostatectomy in the past. He has no symptoms of infection, however. We discussed lifestyle modifications at night help his nocturia.???3.?Gastroesophageal reflux disease, esophagitis presence not specified - K21.9???Notes :He was continued on his omeprazole.???4.?Moderate persistent asthma without complication - J45.40???Notes :His wheezing is allergy related and he has no wheezing recently. He will be seen in the spring to monitor this problem.???5.?Rotator cuff arthropathy of left shoulder - M12.812???Notes :He reports no change in the status of the pain in the shoulder. He will continue on current therapy without change.???6.?Rotator cuff arthropathy of right shoulder - M12.811???Notes :Dear has been no change in the shoulder pain. He has been able to perform activities of daily living, however.???7.?Former smoker - Z87.891???Notes :He seems highly motivated not to smoke and we discussed a plan to prevent relapse in times of stress or illness or tapering narcotic medication.???8.?Other chronic pain - G89.29???Notes :He is no longer receiving narcotic medication. The pain is slightly improved.???9.?Centrilobular emphysema - J43.2???Notes :He had a CT scan in the past, who evaluated cough and had early centrilobular emphysema. He is now stop smoking.???10.?Obesity (BMI 30.0-34.9) - E66.9???Notes :He has lost 2 pounds. His body mass index is 31. We discussed his weight loss strategies at length. He will continue losing weight.??? Plan: * Treatment: 2.?Gastroesophageal reflux d isease, esophagitis presence not specified? Continue Omeprazole Capsule Delayed Release, 20 MG, TAKE 1 CAPSULE BY MOUTH EVERY DAY 30 MINUTES BEFORE BREAKFAST;?Continue Tamsulosin HCl Capsule, 0.4 MG, 1 capsule, Orally, Once a day.?? 3.?Others? Continue Trelegy Ellipta Aerosol Powder Breath Activated, 200-62.5-25 MCG/ACT, 1 puff, Inhalation, Once a day;?Continue Ventolin HFA Aerosol Solution, 108 (90 Base) MCG/ACT, 1 puff as needed, Inhalation, for wheezing.?? * Procedure Codes:? * Preventive Medicine:? ??Counseling:?Care goal follow-up plan:?Counseling for abnormal BMI given?Yes ?Above Normal BMI Follow-up?Dietary management education, guidance, and counseling, Dietary needs education ?Smoking/Tobacco Use?Patient counseled on the dangers of tobacco use and urged to quit.?08/25/2024 * Follow Up:?Wednesday (Reason: T o report on the condition of the patient's upper respiratory infection.) * Images: * Sign off status: Completed true * Provider:?Marco Antonio Mchugh MD Date:?01/2025 Generated for Leny thapa/Elizabeth/Gabriella on:?09/07/2024 09:56 AM EST History and Physical Notes * HPI (History of Present Illness) Category Sub-Category Detail Notes COVID-19 Screening Questions Have you had any new onset fever, chills, cough, congestion, sore throat, shortness of breath, muscle aches?: No
--- OUTSIDE RECORDS SUMMARY | 2024-09-07 09:57 | XMS_ITS | Clinical Summary ---
Author Organization [employer] Address [address] [facility] [place] [address] Care Team Providers Care Scout Sniper Name Role Phone Unavailable Primary Care Provider [...] topic Insurance dr [id number] [place] [id number] [facility] [id number]
--- OUTSIDE RECORDS SUMMARY | 2024-09-07 09:57 | XMS_ITS | Patient Health Record ---
Author Organization [facility] Address [address] [place] [address] Care Team Providers Care Insurance Representative Name Role Phone Drew Bustamante Primary Care Provider Marco Antonio Lenz [phone] REASON FOR REFERRAL No Information MEDICATIONS Medication SIG (Take, Route, Frequency, Duration) Notes Start Date End Date Status oxyCODONE HCl 5mg 1 not daily 07/19/2024 1 Active Colyte with Flavor Packs 227.1 GM as directed Orally as directed for 1 day(s) 03/22/2013 Active Spiriva HandiHaler 18mg 07/19/202407/19 Active Ventolin HFA as needed 07/19/20242024 Active Prilosec 20mg 1 QD(occ. BID) 07/19/2024 07/19/2024 Active SOCIAL HISTORY Sex Assigned At : Social History Observation Description Sex Assigned At Unknown PROBLEMS Problem Type ICD Code Onset Dates Problem Status W/U Status Risk SNOMED Code Notes Problem GERD (gastroesophage al reflux disease) (530.81) Active confirmed Gastroesophagea l reflux disease (700211919) Problem Reflux esophagitis (530.11) Active confirmed Reflux esophagi tis (418992903) Problem Colon cancer screening (V76.51) Active confirmed Colon cancer screening (538780914) PLAN OF TREATMENT Future Test Test Name Order Date COLONOSCOPY 03/22/2013 Insurance Providers Payer Name Payer Address Payer Phone Subscriber Number Group Number Insured Name Patient Relationship to Insured Coverage Start Date Coverage End Date [facility] [address] [address] [place], [place] [id number] YADIRA ORTIZ Self - patient is the insured MEDICAL (GENERAL) HISTORY Medical History History ICD Code asthma hypertension GERD-had an EGD with Dr. Yobany sanchez in 01/2010-esophagitis, distal esophageal ring-dilated with a 19mm balloon, Hiatal hernia Torn rotator cuff on the right-seeing Dr Kaur Jack Denies [place],DM,CVA,renal disease Surgical History Surgery Date(Month/Year) shoulder surgery skin graft on right leg and left hand
--- OUTSIDE RECORDS SUMMARY | 2024-09-07 09:57 | XMS_ITS ---
Author Organization Marco Antonio Mchugh III, MD Address [address] [place] [address] [place] [address] Care Team Providers Care Wet And Dry Sugar Bin Operator Name Role Phone Marco Antonio Mchugh Primary Care Provider Allergies Allergen (clinical drug ingredient) Drug/Non Drug Allergy documented on EMR Reaction Allergy Type Onset Date Status No Known Drug Allergy Unknown Drug Allergy Active REASON FOR VISIT Follow up Medications Medication SIG (Take, Route, Frequency, Duration) Notes Start Date End Date Status Omeprazole 20 MG TAKE [address] [facility] EVERY DAY 30 MINUTES BEFORE BREAKFAST Active Tamsulosin HCl 0.4 MG 1 capsule Orally O nce a day 05/23/2024 Active Ventolin HFA 108 (90 Base) MCG/ACT 1 puff as needed Inhalation for wheezing 04/30/2024 Active Ventolin HFA 108 (90 Base) MCG/ACT INHALE 2 PUFFS BY MOUTH EVERY 4 HOURS NEEDED Active Trelegy Ellipta 200-62.5-25 MCG/ACT 1 puff Inhalation Once a day 06/27/2024 Active Social History Tobacco Use: Social History Observation Description Date Details (start date - stop date) Former Smoker NA - NA Sex Assigned At : Social History Observation Description Sex Assigned At Male Tobacco Control (Standard) Question Answer Notes Tobacco use: Former smoker Encounters Encounter Location Date Provider Diagnosis Marco Antonio Mchugh III, MD [address] [place] [address] [place] [address] 08/04/2024 Marco Antonio Mchugh Gastroesophageal ref lux disease, esophagitis presence not specified K21.9 Assessments Encounter Date Diagnosis (ICD Code) Assessment Notes Treat ment Notes Treatment Clinical Notes 08/04/2024 Gastroesophageal ref lux disease, esophagitis presence not specified (ICD-10 - K21.9) Plan Of Treatment Medication Medication Name Sig Start Date Stop Date Notes Omeprazole 20 MG TAKE 1 CAPSULE BY [facility] EVERY DAY 30 MINUTES BEFORE BREAKFAST Tamsulosin HCl 0.4 MG 1 capsule Orally Once a day 05/23/20 Ventolin HFA 108 (90 Base) MCG/ACT 1 puff as needed Inhalation for wheezing 04/30/2024 Ventolin HFA 108 (90 Base) MCG/ACT INHALE 2 PUFFS BY MOUTH EVERY 4 HOURS NEEDED Trelegy Ellipta 200-62.5-25 MCG/ACT 1 puff Inhalation Once a day 06/27/2024 Next Appt Details Provider Name:Marco Antonio Mchugh, 01/17/2025 04:00:00 PM, [address] [place] [address] DEON HUTCHINSON, [place], [address], Progress Notes * Francis HSU FDOB: (64 yo M)Acc No.[id number]:08/04/2024 Progress Notes Patient:?Grupo HSU F Provider:?Marco Antonio Mchugh MD :1960???Age:64 Y???Sex:Male Jorge e:08/04/2024 Address:[address] [place], [place] [id number] Subjective: * Chief Complaints: * ???1. Follow up. * HPI: ???COVID-19 Screening:?Questions?Have you had any new onset fever, chills, cough, congestion, sore throat, shortness of breath, muscle aches??No * ROS:?General/Constitutional:?pain?only normal aches and pains.?Chills?denies.?Fatigue?admits.?Fever?denies.?ENT:?Decreased hearing?denies.?Respiratory:?Cough?denies.?Cardiovascular:?Chest pain with exertion?denies.?Dyspnea on exertion?denies.?Shortness of breath?denies.?Gastrointestinal:?Constipation?denies.?Decreased appetite?denies.?Diarrhea?denies.?Heartburn?denies.?Nausea?denies.?Rectal bleeding?denies.?Vomiting?denies.?Hematology:?bruising?denies.?petechiae?denies.?Swollen glands?none have been noted.?Genitourinary:?Frequent urination?denies.?Musculoskeletal:?Muscle aches?denies.?Painful joints?denies.?Sciatica?denies.?Weakness?denies.?Skin:?Itching?denies.?Rash?denies.?Skin lesion(s)?denies.?Neurologic:?Difficulty speaking?denies.?Dizziness?denies.?Headache?denies.?Low back pain?denies.?Psychiatric:?Depressed mood?denies.? * Medical History:?Asthma, uns pecified asthma severity, unspecified whether complicated, unspecified whether persistent, Gastroesophageal reflux disease, esophagitis presence not specified, Benign prostatic hypertrophy, rotator cuff tear left shoulder 1998. Repair, Rotator cuff tear right shoulder, inoperable, 2012, Chronic pain, History of diplopia, history of dilatation of Schatzki ring, Former smoker, Hyperplastic rectal polyp, healed left rib fracture, by CT, subcentimeter pulmonary nodules by CT, {'Prostate Condition': 'Partial prostate removal', 'Breathing Difficulty': 'In cold weather', 'Blood Pressure': 'Slight increase due to stress', 'Weight': 'Loss of 2 lbs', 'Skin Condition': 'Getting darker and harder'}. * Surgical History:?tonsillect sierra child, rotator cuff tear repair/ left shoulder 1998, fall on ice, torn right rotator cuff 2011, upper endoscopy with dilatation of Schatzki ring 01/2010, colonoscopy, hyperplastic rectal polyp 05/2013, negative upper endoscopy 12/2015, prostate surgery 10/2021, Partial prostate removal . * Hospitalization/Major Diagno stic Procedure:?Denies Past Hospitalization. * Family History:?Father: dece ased, No information.?Mother: alive, Osteoarthritis, ovarian cancer, diagnosed with Cancer.?Siblings: alive.?1 brother(s) . 2 son(s) . .? His mother from ovarian cancer. His brother has a history of testicular cancer at age 36. Two sons are healthy and well. Lung problems. 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 He has no toxic exposures. He no longer smokes. {'Smoking': 'No current smoking habits', 'Family History': 'Lung problems'}. * Medications:?Taking Ventolin HFA 108 (90 Base) MCG/ACT Aerosol Solution 1 puff as needed Inhalation for wheezing , Taking Tamsulosin HCl 0.4 MG Capsule 1 capsule Orally Once a day , stop date 05/18/2025, Taking Ventolin HFA 108 (90 Base) MCG/ACT Aerosol Solution INHALE 2 PUFFS BY MOUTH EVERY 4 HOURS NEEDED , Taking Trelegy Ellipta 200-62.5-25 MCG/ACT Aerosol Powder Breath Activated 1 puff Inhalation Once a day , stop date 06/22/2025, Taking Omeprazole 20 MG Capsule Delayed Release TAKE 1 CAPSULE BY MOUTH EVERY DAY 30 MINUTES BEFORE BREAKFAST , Medication List reviewed and reconciled with the patient * Allergies:?No Known Drug All ergy. Objective: * Vitals:? * Examination: ???General Examination: ?GENERAL APPEARANCE:?pleasant, well nourished, well developed, in no acute distress, calm and relaxed.?HEAD:?atraumatic, normocephalic.?EYES:?eomi, perrla, anicteric, conjugate.?EARS:?normal.?NOSE:?septum intact.?ORAL CAVITY:?normal, unremarkable.?NECK/THYROID:?no jugular venous distention, no carotid bruit, thyroid normal.?LYMPH NODES:?no enlarged lymph nodes,spleen normal.?SKIN:?no suspicious lesions, anicteric.?HEART:?no clicks, gallops, murmurs, or rubs, regular rhythm, S1, S2 normal, no s3, or vascular bruits.?LUNGS:?clear to auscultation .?BREASTS:??no masses palpable bilaterally.?ABDOMEN:?bowel sounds normal, no ascites, no organomegaly, no mass.?RECTAL EXAM:?not examined.?MUSCULOSKELETAL:?extremities unremarkable, no clubbing, cyanosis or edema.?PERIPHERAL PULSES:?normal.?NEUROLOGIC:?alert and oriented, cranial nerves 2-12 grossly intact, deep tendon reflexes 2+ symmetrical, motor strength normal upper and lower extremities, sensory exam intact.?PSYCH:?alert, oriented.? Assessment: * Assessment: 1.?Gastroesophageal reflux d isease, esophagitis presence not specified - K21.9??? Plan: * Treatment: 2.?Others? Continue Trelegy Ellipta Aerosol Powder Breath Activated, 200-62.5-25 MCG/ACT, 1 puff, Inhalation, Once a day;?Continue Ventolin HFA Aerosol Solution, 108 (90 Base) MCG/ACT, 1 puff as needed, Inhalation, for wheezing.?? * Images: * The named appointment provid er may or may not be the originator of this progress note, and it is not deemed complete until electronically signed by the appointment provider. Sign off status: Pending * Provider:?Marco Antonio Mchugh MD Date:?07/19 Generated for Leny thapa/Elizabeth/Jarrellitting on:?09/07/2024 09:57 AM EST History and Physical Notes * HPI (History of Present Illness) Category Sub-Category Detail Notes COVID-19 Screening Questions Have you had any new onset fever, chills, cough, congestion, sore throat, shortness of breath, muscle aches?: No Examination Category Sub-Category Detail Notes General Examination GENERAL APPEARANCE: pleasant , well nourished, well developed, in no acute distress, calm and relaxed HEAD: atraumatic, normocep halic EYES: eomi, perrla, anicte kelly, conjugate EARS: normal NOSE: septum intact NECK/THYROID: no jugular venous di stention, no carotid bruit, thyroid normal HEART: no clicks, gallops, murmurs, or rubs, regular rhythm, S1, S2 normal, no s3, or vascular bruits LUNGS: clear to auscultatio n ABDOMEN: bowel sounds normal, no ascites, no organomegaly, no mass NEUROLOGIC: alert and oriented, cranial nerves 2-12 grossly intact, deep tendon reflexes 2+ symmetrical, motor strength normal upper and lower extremities, sensory exam intact SKIN: no suspicious lesion s, anicteric PERIPHERAL PULSES: normal BREASTS: no masses palpable b ilaterally MUSCULOSKELETAL: extremities unremark able, no clubbing, cyanosis or edema LYMPH NODES: no enlarged lymph no filiberto,spleen normal RECTAL EXAM: not examined PSYCH: alert, oriented ORAL CAVITY: normal, unremarkable
--- OUTSIDE RECORDS SUMMARY | 2024-09-07 09:57 | XMS_ITS | Data Portability ---
Author Organization DIANDRA Restrepo s, [address] Address [address] [place] [address] Care Team Providers Care Customer Service Administrator Name Role Phone JOHAN AGUILA Primary Care Provider [phone] Assessment No assessment recorded. Plan of Treatment Reminders Order Date Submit Date Provider Last Modified By Organization Details Last Modified Time Details Appointments None recorded . Lab None recorded . Ref[facility] ic [facility] [address] [facility] [place], [address], 3 08:51:54 Procedures None recorded . Surgeries None recorded . Imaging XR, elbow, 3 or more view 2022 023 [email or web address] 9 [facility], [address] [place], [address], 3 19:24:41 electroc ardiogra m 2022 023 [email or web address] 9 _aarti hoffmiranda, [address] [facility], [place], [address], 3 19:24:41 XR, chest, 2 view 2022 023 [email or web address] 9 [facility], [address] [place], [address], 3 19:24:41 Medication Orders benzonat ate 100 mg capsule 2022 023 [email or web address] [id number], [address] [place], [place], [phone], 10:46:53 doxycycl ine hyclate 100 mg capsule 2022 023 [email or web address] [id number], [address] [place], [place], [phone], 10:47:02 Patient TargetsNo targets recorded. Patient Instructions Encounter Date Encounter Id Patient Instructions Last Modified By Organization Details Last Modified Time 02/13/2023 [id number] fainting: care instructions [email or web address] Not available 02/13/2023 19:03:03 lightheadedness or faintness: care instructions [email or web address] Not available 02/13/2023 19:03:03 chronic obstruct trinh pulmonary disease (COPD) flare-ups: care instructions Not available 02/13/2023 19:03:03 cough: care instructions [email or web address] Not available 02/13/2023 19:03:03 bronchitis: care instructions [email or web address] Not available 02/13/2023 19:16:12 Your EKG was abnormal but you have elected not to go to the Emergency Department for evaluation but instead follow-up with your doctor. A copy of your EKG has been provided and you should follow-up with your doctor tomorrow. You are encouraged to change your mind and go to the Emergency Department after leaving [facility]. Use your inhalers as prescribed by your [...] has been made for you - call [facility] for an appointment as soon as possible. See printed instructions and work note. Seek Emergency Medical evaluation for any worsening symptoms. [email or web address] Not available 02/13/2023 19:18:50 EKG performed fi [...] still declines to go to the ER. [email or web address] Not available 02/13/2023 18:54:05 05/26/2023 [id number] shortness of breath: care instructions Not available [...] am No observ ation record ed. MAURY [id number], [address], 02/13/2023 19:03:04 02/14/20 23 02/13/2023 XR, chest , 2 view No observ ation record ed. [email or web address] [employer] [facility] [employer] [facility] [address] [place], [address], 02/13/2023 19:14:11 02/14/20 23 02/13/2023 XR, elbow , 3 or more view No observ ation record ed. [facility] [address] [place], [address], 02/13/2023 19:14:11 Result Notes None recorded. Problems Name Problem SNOMED Code Status Onset Date Resolution Date Notes Provider Name and Address Organization Details Recorded Time Asthma 420291362 Active 2022 Amarilis Bon Aqua null, PA - [facility] 3 16:45:30 Chronic obstructive pulmonary disease 59015545 Active 2022 Amarilis Anastasiya null, PA - [facility] 3 16:45:34 Gastroesophage al reflux disease 300477611 Active 2022 Amarilis Bon Aqua null, PA - [facility] 3 16:45:38 [...] LastModified Time 02/13/2023 electrocardiogram completed MAURY [id number], [place], [address], 02/13/2023 19:03:04 02/13/2023 XR, chest, 2 view completed [email or web address] [facility] [address] [place], [address], 02/13/2023 19:14:11 02/13/2023 XR, elbow, 3 or more view completed [email or web address] [facility] [address] [place], [address], 02/13/2023 19:14:11 Procedure Notes None recorded. Medical [...] Not Available Vitals Date Recorded Body weight Body mass index (BMI) Body height Pain severity - 0-10 verbal numeric rating [Score] - Reported Respiratory rate Oxygen saturation Oxygen saturation in Arterial blood by Pulse oximetry Heart rate Body temperature Systolic blood pressure Diastolic blood pressure Provider Name and Address Organization Details Last Updated DateTime 3 103223. 28 g 31.4 kg/m2 180.34 cm 8 18 /min 94 % 94 % 72 /min 97.8 [degF] 124 mm[Hg] 79 mm[Hg] Amarilis Langford PA - [facility] 3 16:47:52 Date Recorded Body height Body mass index (BMI) Body weight Oxygen saturation Oxygen saturation in Arterial blood by Pulse oximetry Heart rate Respiratory rate Body temperature Systolic blood pressure Diastolic blood pressure Provider Name and Address Organization Details Last Updated DateTime 3 180.34 cm 30.7 kg/m2 84392.3 2 g 92 % 92 % 83 /min 22 /min 98.4 [degF] 120 mm[Hg] 80 mm[Hg] LIZ DOTSON PA - [facility] 3 10:48:39 Social History Question Answer Notes LastModified by Organizat ion Details LastModified Time Tobacco Smoking Status Never Smoker Amarilis Anastasiya null, PA - [facility] 02/13/2023 16:46:14 What [...] Influenza, MDCK, quadrivalent, PF 0 completed Amarilis Bon Aqua null, PA - [facility] 02/13/2023 16:45:01 COVID-19, mRNA, LNP-S, PF, 100 mcg/0.5mL dose or 50 mcg/0.25mL dose 1 completed Amarilis Anastasiya null, PA - [facility] 02/13/2023 16:45:01 COVID-19, mRNA, LNP-S, PF, 100 mcg/0.5mL dose or 50 mcg/0.25mL dose 1 completed Amarilis Bon Aqua null, PA - [facility] 02/13/2023 16:45:01 COVID-19, mRNA, LNP-S, PF, 30 mcg/0.3 mL dose 1 completed Amarilis Bon Aqua null, PA - [facility] 02/13/2023 16:45:01 Influenza, split virus, trivalent, preservative 6 completed Amarilis Anastasiya null, PA - [facility] 02/13/2023 16:45:01 Influenza, split virus, trivalent, preservative 7 completed Amarilis Anastasiya null, PA - [facility] 02/13/2023 16:45:01 Td (adult), 2 Lf tetanus toxoid, preservative free, adsorbed 7 completed Amarilis Bon Aqua null, PA - [facility] 02/13/2023 16:45:01 Influenza, split virus, quadrivalent, PF 9 completed Amarilis Bon Aqua null, PA - [facility] 02/13/2023 16:45:01 Past Encounters Encounter ID Performer Location Encounter Start Date Encounter Closed Date Diagnosis/Indication Diagnosis SNOMED-CT Code Diagnosis ICD10 Code Diagnosis Note [id number] [facility] [address] [place] [phone] 11/30/2018 15:22:48 11/30/2018 15:59:16 [id number] [address] [address] 02/18/2018 14:57:27 02/18/2018 16:32:45 [id number] [place] [facility] [address] [place] [phone] 02/13/2023 16:25:27 02/13/2023 19:24:40 Syncope 591357703 R55 Pain of ri ght elbow joint 7413354860 9260279 M25.521 Acute exac erbation of chronic obstructive pulmonary disease 645383907 J44.1 [id number] [place] [address] [facility] [place] Hickman [address] 05/26/2023 10:27:07 05/26/2023 11:12:25 Acute exacerbation of chronic obstructive pulmonary disease 087399129 J44.1 Continue with the nebulizer treatments at home . Use your rescue inhaler as needed . A return to work note is provided for you If you have chronic obstructiv e pulmonary disease (COPD), your usual shortness of breath could suddenly get worse. You may start coughing more and have more mucus. This flare-up is called a COPD exacerbati on (say Rachel Sanders ). 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 No numbness or weakness distal to the elbow. He has some wheezing and shortness of breath from his copd and his cough is occasionally productive. Dennise Young MD [address] [place], [address], [facility] [employer] [facility] 02/13/2023 19:25:42 3 text/html CoughReported bypatient.source of [...] Shaina Herman NP [address] [place], [address], [employer] [employer] [facility] 05/26/2023 11:13:07
--- OUTSIDE RECORDS SUMMARY | 2024-09-07 09:57 | XMS_ITS | Patient Health Record ---
Author Organization Marco Antonio Mchugh III, MD Address [address] [place] [address] Care Team Providers Care Network Security Consultant Name Role Phone Marco Antonio Mchugh Primary Care Provider [phone] Allergies Allergen (clinical drug ingredient) Drug/Non Drug Allergy documented on EMR Reaction Allergy Type Onset Date Status No Known Drug Allergy Unknown Drug Allergy Active Results Component Value Reference Range Notes Urine Culture Reviewed date:01/22/2024 06:44:59 AM Interpretation: Performing Lab:[facility], [address] [place] [phone] Notes/Report: Urine Culture No growth. Complete Blood Count Auto Di ff Reviewed date:01/15/2024 04:10:49 AM Interpretation: Performing Lab:[facility], [address] [place] [phone] Notes/Report: White Blood Count 9.9 4.8-10.8 X10*3/uL Red Blood Count 4.81 4.60-5.80 X10*6/uL Hemoglobin 14.6 14.0-18.0 g/dl Hematocrit 43.8 42.0-52.0 % Mean Corpuscular Volume 91.1 80.0-98.0 fL Mean Corpuscular Hemoglobin 30.4 27.0-33.0 pg Mean Corpuscular HGB Conc 33.3 31.0-36.0 g/dl Red Cell Distribution Width 14.7 11.0-16.0 % Platelet Count 176 160-400 X10*3/uL Mean Platelet Volume 10.1 9.4-12.4 fL Neutrophils Percent Auto 67.1 45-73 % Imm Gran Pct Auto 0.6 0.0-0.4 % Lymphocytes Percent Auto 18.2 20-40 % Monocytes Percent Auto 9.7 2-11 % Eosinophils Percent Auto 3.8 0-4 % Basophils Percent Auto 0.6 0-2 % NRBC Pct Auto 0.0 0.0-0.2 /100WBC Neutrophils Absolute Auto 6.6 2.0-8. 3 x10*3/uL Imm Gran Abs Auto 0.06 0.00-0.03 X10*3/uL Lymphocytes Absolute Auto 1.8 1.2-4. 9 X10*3/uL Monocytes Absolute Auto 1.0 0.1-1.2 X10*3/uL Eosinophils Absolute Auto 0.4 0.0-0. 4 X10*3/uL Basophils Absolute Auto 0.1 0.0-0.2 X10*3/uL NRBC Abs Auto 0.000 0.0-0.012 X10*3/uL Liver Panel Reviewed date:01/15/2024 04:10:49 AM Interpretation: Performing Lab:[facility], [address] [place] [phone] Notes/Report: Bilirubin Total 0.3 0.0-1.0 mg/dL Bilirubin Direct 0.2 0.0-0.5 mg/dL Aspartate Amino Transferase 24 5-37 U/L Alanine Aminotransferase 34 0-40 U/L Total Protein 6.7 6.5-8.0 g/dL Albumin Level 4.0 3.5-5.0 g/dL Alkaline Phosphatase 73 39-117 U/L Basic Metabolic Panel Reviewed date:01/15/2024 04:10:49 AM Interpretation: Performing Lab:[facility], [address] [place] [phone] Notes/Report: Sodium 142 135-145 mmol/L Potassium 3.7 3.3-5.1 mmol/L Chloride 113 96-108 mmol/L Carbon Dioxide 22 22-29 mmol/L Anion Gap 11 12-20 Blood Urea Nitrogen 22 9-16 mg/dL Creatinine 1.57 0.5-1.4 mg/dL Creatinine Clr Calc Pharmacy 55.9 eGFR (calculated from the MDRD study equation) and eCrCl (calculated from the Cockcroft-Gault equation) are based on different parameters and may not yield comparable results. If eCrCl result is absurd, please check patient's height/weight. Estimated Glomerular Filt Rate 45 NOTE: For -[place] individuals, multiply the result by 1.210. Chronic Kidney Disease: Estimated GFR < 60 mL/min/1.73m2 Severe Kidney Disease: Estimated GFR < 15 mL/min/1.73m2 Glucose Random 107 60-115 mg/dL Calcium 8.7 8.4-10.2 mg/dL UA CC w/rflx Micro + Cult Reviewed date:01/15/2024 04:10:49 AM Interpretation: Performing Lab:[facility], [address] [place] [phone] Notes/Report: [id number] Urine, Clean Catch Color Urine Yellow Appearance Urine Clear PH 5.5 5.0-9.0 Glucose Urine UA Negative Negative mg/dL Urine Blood Negative Negative Specific [place] - Urine 1.010 1.005-1.025 Urine Protein Negative Neg-Trace mg/dL Urine Ketones Negative Negative mg/dL Nitrite Urine Negative Negative Leukocyte Esterase Urine Negative Negative CT abdomen pelvis wo con Reviewed date:01/15/2024 04:10:49 AM Interpretation: Performing Lab: Notes/Report: [address] [address] [address] Scan Report Signed Patient: Francis Hsu MR#: [id number] : 1960 Acct:[id number] Age/Sex: 63 / M ADM Date: 01/13/24 Loc: HO.ED Attending Dr: Ordering Physician: Fariba Isbell Date of Service: 01/13/24 Procedure(s): CT abdomen pelvis wo IV con Accession Number(s): [id number] cc: Marco Antonio Mchugh MD; Fariba Isbell EXAMINATION: CT ABDOMEN AND PELVIS WITHOUT CONTRAST CLINICAL INFORMATION: Right flank pain COMPARISON: 02/28/2012 TECHNIQUE: Multidetector volumetric imaging was performed from the superior aspect of the liver through the pubic symphysis. Sagittal and coronal reformatted images were obtained on the technologist's workstation. This CT examination was performed using dose optimization techniques as appropriate, variously including the following: *Automated exposure control *Adjustment of mA and/or kV according to patient size (this includes techniques or standardized protocols for targeted exams where dose is matched to indication/reason for exam; i.e. extremities or head) *Use of iterative reconstruction technique DLP: 674 mGy-cm FINDINGS: LUNG BASES: The bronchial rothman are diffusely thickened and there are secretions within lower lobe bronchi. Centrilobular emphysema is present. 0.3 cm solid, noncalcified nodule of the lingula. No large or suspicious-appearing nodule. Based on Fleischner Society guidelines, no chest CT imaging follow-up recommended. HEPATOBILIARY: Mild hepatomegaly and diffuse hepatic steatosis. Gallbladder has a normal appearance. No dilated bile ducts. PANCREAS: Mildly atrophied. No edema, pancreatic ductal dilatation or mass. SPLEEN: Normal. ADRENAL GLANDS: Normal. KIDNEYS AND URETERS: Kidneys are normal in size. Punctate calyceal stones of the anterior lower pole of left kidney (image 327, series 3) and posterior upper pole of the left kidney (image 257, series 3). Right-sided perinephric edema and mild hydronephrosis are caused by a 0.3 cm stone in the distal ureter, located approximately 1.5 cm above the level of the ureterovesical junction. BLADDER: Normal. BOWEL AND PERITONEUM: Stomach and small bowel are unremarkable. No dilated loops. The appendix is normal. No overt colonic wall thickening or mesenteric fat stranding. Multiple diverticula of the descending and sigmoid colon. No free fluid or pneumoperitoneum. ABDOMINAL WALL: No acute or significant imaging abnormalities in the abdominal wall. VASCULATURE: Mild atherosclerotic calcification of the abdominal aorta without aneurysm. LYMPH NODES: No pathologic sized lymph nodes in the abdomen or pelvis. No inguinal lymphadenopathy. PELVIC VISCERA: Prostate gland is unremarkable. MUSCULOSKELETAL: Multilevel osteophyte formation of the degenerated spine. There is disc space narrowing and vacuum disc phenomenon at L4-L5 and L5-S1. Mild multilevel retrolisthesis of the vertebra in the degenerated lumbar spine. There is prominent enthesophyte formation at the superior aspect of the pubis. Suspicious osseous lesions. CT/CT abdomen pelvis wo IV con IMPRESSION: * Mild right hydroureteronephrosis and perinephric edema are caused by a 0.3 cm stone of the distal ureter. * Punctate calyceal stones in the upper and lower pole of the left kidney. * Colonic diverticulosis without diverticulitis. * Diffuse hepatic steatosis. * Diffuse thickening of bronchial rothman and emphysematous changes in the visualized lung bases. Correlate for any history of chronic obstructive pulmonary disease. Dictated By: Terry Khan MD Signed By: <Electronically signed by Terry Khan MD in [place]> 01/13/242035 DD/ 52 TD/TT: [employer] Dispatcher: [address] [address] [address] Scan Report Signed Patient: Francis Hsu MR#: [id number] : 1960 Acct:[id number] Age/Sex: 63 / M ADM Date: 01/13/24 Loc: HO.ED Attending Dr: Ordering Physician: Fariba Isbell Date of Service: 01/13/24 Procedure(s): CT abd omen pelvis wo IV con Accession Number(s): [id number] cc: Marco Antonio Mchugh MD; Fariba Isbell EXAMINATION: CT ABDOMEN AND PELVI S WITHOUT CONTRAST CLINICAL INFORMATION: Right flank pain COMPARISON: 02/28/2012 TECHNIQUE: Multidetector volume tric imaging was performed from the superior aspect of the liver through the pubic symphysis. Sagittal and coronal reformatted images w ere obtained on the technologist's workstation. This CT examination was performed using dose optimization techniques as appropriate, various ly including the following: *Automated exposure control *Adjustment of mA an d/or kV according to patient size (this includes techniques or standa rdized protocols for targeted exams where dose is matched to indication/reason for exam; i.e. extremities or head) *Use of iterative reconstruction technique DLP: 674 mGy-cm FINDINGS: LUNG BASES: The bron chial rothman are diffusely thickened and there are secretions within lo wer lobe bronchi. Centrilobular emphysema is present. 0.3 cm abilio d, noncalcified nodule of the lingula. No large or suspicious-appearing nodule. Based on Fleischner Society guidelines, no chest CT imaging fol low-up recommended. HEPATOBILIARY: Mild hepatomegaly and diffuse hepatic steatosis. Gallbladder has a no rmal appearance. No dilated bile ducts. PANCREAS: Mildly atr ophied. No edema, pancreatic ductal dilatation or mass. SPLEEN: Normal. ADRENAL GLANDS: Normal. KIDNEYS AND URETERS: Kidneys are normal in size. Punctate calyceal stones of the anteri or lower pole of left kidney (image 327, series 3) and posterior upper pole of the left kidney (image 257, series 3). Right-sided perineph kelly edema and mild hydronephrosis are caused by a 0.3 cm stone in the distal ureter, located approximately 1.5 cm above the level of the ureterovesical junction. BLADDER: Normal. BOWEL AND PERITONEUM : Stomach and small bowel are unremarkable. No dilated loops. The a ppendix is normal. No overt colonic wall thickening or mesenteric fat stranding. Multiple diverticula of the descending and sigmoid colon. No fr ee fluid or pneumoperitoneum. ABDOMINAL WALL: No a cute or significant imaging abnormalities in the abdominal wall. VASCULATURE: Mild atherosclerotic calcification of the abdominal aorta without aneurysm. LYMPH NODES: No path ologic sized lymph nodes in the abdomen or pelvis. No inguinal lymphadenopathy. PELVIC VISCERA: Pros lawrence gland is unremarkable. MUSCULOSKELETAL: Mul tilevel osteophyte formation of the degenerated spine. There is disc space narrowing and vacuum disc phenomenon at L4-L5 and L5-S1. Mil d multilevel retrolisthesis of the vertebra in the degenerated lumbar s pine. There is prominent enthesophyte formation at the superior aspect of the pubis. Suspicious osseous lesions. C T/CT abdomen pelvis wo IV con IMPRESSION: * Mild right hydroureteronephrosis and perinephric edema are caused by a 0.3 cm stone of th e distal ureter. * Punctate calyceal stones in the upper and lower pole of the left kidney. * Colonic diverticul osis without diverticulitis. * Diffuse hepatic steatosis. * Diffuse thickening of bronchial rothman and emphysematous changes in the visualized lung bases. Correlate for any history of chronic obstructive pulmonar y disease. Dictated By: Terry Khan MD Signed By: <Arianna odonnell signed by Terry Khan MD in [place]> 01/13/242035 DD/ 52 TD/TT: [employer] Dispatcher: PD Reason For Referral Reason Consult and Treat Diagnosis 1 Screen for colon can cer (Z12.11) Referral Organization Marco Antonio Mchugh III, MD Referring Provider First Name Marco Antonio Referring Provider Last Name Mchugh Referring Provider Speciality Internal edicine Referred Provider [facility], Gastroenterology Referred Provider Specialty Gastroenterortiz logjaimee General Notes Felice Mora BLAYNE 03/08/2024 11:50:55 AM >[place] [facility] [place] Referral Priority Routine Reason BPH S/P TURP with Dr Rowland years ago Diagnosis 1 Benign prostatic hyp erplasia, unspecified whether lower urinary tract symptoms present (N40.0) Referral Organization Marco Antonio Mchugh III, MD Referring Provider First Name Marco Antonio Referring Provider Last Name Mchugh Referring Provider Speciality Internal edicine Referred Provider [facility], Urology Referred Provider Specialty Urology General Notes Huong Dennis [facility] 05/25 03:08:18 PM >ref/demo/progress note/labs faxed to [facility], Huong Dennis [facility] 05/30/2024 10:25:39 AM >ref demo progress notes x rays faxed to [facility] 2 nd time, Huong Dennis [facility] 06/01/2024 03:01:27 PM >Called Dr Barber office pt has appt on 07/25/2024 at 10am Referral Priority Routine Referral Appointment Date 07/25/2024 Reason Evaluate and Treat Diagnosis 1 Moderate persistent asthma without complication (J45.40) Diagnosis 2 Centrilobular emphys maryann (J43.2) Referral Organization Marco Antonio Mchugh III, MD Referring Provider First Name Marco Antonio Referring Provider Last Name Mchugh Referring Provider Speciality Internal edicine Referred Provider [facility], Pulmonology Referred Provider Specialty Pulmonary Renay jarvis General Notes Kalee Gomez 06/28/2024 11:38:41 AM > Referral and last progress note faxed. Referral Priority Routine Referral Appointment Date 08/18/2024 Medications Medication SIG (Take, Route, Frequency, Duration) Notes Start Date End Date Status Tamsulosin HCl 0.4 MG 1 capsule Orally O nce a day 05/23/2024 Active Tamsulosin HCl 0.4 MG 1 capsule Orally O nce a day 05/23/2024 Active Omeprazole 20 MG TAKE [address] [facility] EVERY DAY 30 MINUTES BEFORE BREAKFAST Active Trelegy Ellipta 200-62.5-25 MCG/ACT 1 puff Inhalation Once a day 06/27/2024 Active Ventolin HFA 108 (90 Base) MCG/ACT 1 puff as needed Inhalation for wheezing 04/30/2024 Active Immunizations Vaccine Route Administration Date Status Comme nts COVID- 19 Vaccine Unknown 11/07/2020 Administered RSV Adjuvant Unknown 04/03/2023 Administered COVID 19 Moderna Unknown 10/10/2020 Administered Influenza no Preserv 3 and > Unknown 04/07/2016 Administered Influenza no Preserv 3 and > Unknown 04/14/2017 Administered Influenza, quad Unknown 03/08/2019 Administered COVID PFIZER Unknown 07/14/2021 Administered Influenza-iiv4 p-free high dose Unknown 03/29/2020 Administered Influenza-iiv4 p-free high dose Unknown 04/03/2023 Administered Td (adult) Unknown 01/13/2017 Administered Tetanus and Diphtheria Toxoids Adsorbed IM Intramuscular 09/28/2023 Administered Influenza no Preserv 3 and > Unknown 03/28/2018 Pending Social History Tobacco Use: Social History Observation Description Date Details (start date - stop date) Former Smoker NA - NA Sex Assigned At : Social History Observation Description Sex Assigned At Male Alcohol Screen Question Answer Notes Did you have a drink containing alcohol in the p ast year? No Points 0 Interpretation Negative Tobacco Control (Standard) Question Answer Notes Tobacco use: Former smoker Problems Problem Type SNOMED Code ICD Code Onset Dates Problem Status W/U Status Risk Notes Problem 0349823 Former smoker (Z87.891) Active confirmed He seems highly motivated not to smoke and we discussed a plan to prevent relapse in times of stress or illness or tapering narcotic medication. Problem 554103305029312 Obesity (BMI 30.0-34.9) (E66.9) Active confirmed He has lost 2 pounds. His body mass index is 31. We discussed his weight loss strategies at length. He will continue losing weight. Problem 65134214 Other chronic pain (G89.29) Active confirmed He is no longer receiving narcotic medication. The pain is slightly improved. Problem 58212951 Centrilobular emphysema (J43.2) Active confirmed He had a CT scan in the past, who evaluated cough and had early centrilobular emphysema. He is now stop smoking. Problem Gastroesophageal reflux disease (638033947) Gastroesophageal reflux disease, esophagitis presence not specified (K21.9) Active confirmed He was continued on his omeprazole. Problem 029745991 Hyperplastic rectal polyp (K62.1) Active confirmed Problem 212672324 Schatzki's ring (K22.2) Active confirmed He has a history of esophageal dilatation for odynophagia from 2 Schatzki rings. He is currently asymptomatic and will be observed. Problem Benign prostatic hypertrophy without outflow obstruction (943162919) Benign prostatic hyperplasia, unspecified whether lower urinary tract symptoms present (N40.0) Active confirmed He is taking tamsulosin. He has an appointment with urology in the near future and has seen them recently. He has a history of a partial prostatectomy in the past. He has no symptoms of infection, however. We discussed lifestyle modifications at night help his nocturia. Problem 403480087 Moderate persistent asthma without complication (J45.40) Active confirmed His wheezing is allergy related and he has no wheezing recently. He will be seen in the spring to monitor this problem. Problem 33370934925834840 Rotator cuff arthropathy of left shoulder (M12.812) Active confirmed He reports no change in the status of the pain in the shoulder. He will continue on current therapy without change. Problem 38832659532190072 Rotator cuff arthropathy of right shoulder (M12.811) Active confirmed Dear has been no change in the shoulder pain. He has been able to perform activities of daily living, however. Problem 973005482 History of diplopia (Z86.69) Active confirmed Problem 022340793 Acute viral syndrome (B34.9) Active confirmed He has a three-day history of a sore throat cough productive of thick white phlegm fever to 101 degree(s) myalgias nausea loose stool and rhinorrhea. He was instructed to consume large amounts of fluid and use acetaminophen. He has tested negative for Covid. He will report to me every other day until he has recovered. Vital Signs Heart Rate 92 /min 05/23/2024 Temperature 97.7 degrees Fahrenheit 05/23/2024 Oximetry 93 % 09/28/2023 Blood pressure diastolic 82 mm Hg 05/23/2024 Height 69 in 05/23/2024 Blood pressure systolic 128 mm Hg 05/23/2024 Weight 212 lbs 05/23/2024 BMI 31.3 kg/m2 05/23/2024 Encounters Encounter Location Date Provider Diagnosis Marco Antonio Mchugh III, MD [address] [place] [address] [place] [phone] 09/28/2023 Marco Antonio Mchugh Gastroesophageal ref lux disease, esophagitis presence not specified K21.9 ; Benign prostatic hyperplasia, unspecified whether lower urinary tract symptoms present N40.0 ; Immunization, tetanus-diphtheria Z23 ; Obesity (BMI 30.0-34.9) E66.9 ; Encounter for removal of sutures Z48.02 and Former smoker Z87.891 Marco Antonio Mchugh III, MD [address] [place] [address] [place] [address] 01/17/2024 Marco Antonio Mchugh Gastroesophageal ref lux disease, esophagitis presence not specified K21.9 ; Fever, unspecified fever cause R50.9 ; Renal colic N23 ; Benign prostatic hyperplasia, unspecified whether lower urinary tract symptoms present N40.0 ; Moderate persistent asthma without complication J45.40 ; Rotator cuff arthropathy of left shoulder M12.812 ; Rotator cuff arthropathy of right shoulder M12.811 ; Former smoker Z87.891 ; Schatzki's ring K22.2 and Obesity (BMI 30.0-34.9) E66.9 Marco Antonio Mchugh III, MD [address] [place] [address] [place] [address] 01/19/2024 Marco Antonio Mchugh Renal colic on right side N23 ; Ureterolithiasis N20.1 ; Gastroesophageal reflux disease, esophagitis presence not specified K21.9 ; Benign prostatic hyperplasia, unspecified whether lower urinary tract symptoms present N40.0 ; Moderate persistent asthma without complication J45.40 ; Rotator cuff arthropathy of left shoulder M12.812 ; Rotator cuff arthropathy of right shoulder M12.811 ; Schatzki's ring K22.2 ; Former smoker Z87.891 and History of diplopia Z86.69 Marco Antonio Mchugh III, MD [address] [place] [address] [place] [address] 05/23/2024 Marco Antonio Mchugh Gastroesophageal ref lux disease, esophagitis presence not specified K21.9 ; Centrilobular emphysema J43.2 ; Benign prostatic hyperplasia, unspecified whether lower urinary tract symptoms present N40.0 ; Obesity (BMI 30.0-34.9) E66.9 ; Former smoker Z87.891 ; Moderate persistent asthma without complication J45.40 ; Rotator cuff arthropathy of right shoulder M12.811 ; Rotator cuff arthropathy of left shoulder M12.812 and Schatzki's ring K22.2 Marco Antonio Mchugh III, MD [address] [place] [address] [place] [phone] 08/25/2024 Marco Antonio Mchugh Acute viral syndrome [...] emphysema J43.2 and Obesity (BMI 30.0-34.9) E66.9 Marco Antonio Mchugh III, MD [address] [place] [address] [place] [phone] 03/02/2024 Marco Antonio Mchugh III, MD [address] [place] [address] [place] [phone] 11/16/2023 Marco Antonio Mchugh III, MD [address] [place] [address] [place] [address] 01/25/2024 Marco Antonio Mchugh III, MD [address] [place] [address] [place] [address] 04/30/2024 Marco Antonio Mchugh III, MD [address] [place] [address] [place] [address] 06/27/2024 Marco Antonio Mchugh III, MD [address] [place] [address] [place] [address] 06/27/2024 Marco Antonio Mchugh Assessments Encounter Date Diagnosis (ICD Code) Assessment Notes Treat ment Notes Treatment Clinical Notes 09/28/2023 Gastroesophageal reflux disease, esophagitis presence not specified (ICD-10 - K21.9) He was continued on his omeprazole. 09/28/2023 Benign prostatic hyperplasia, unspecified whether lower urinary tract symptoms present (ICD-10 - N40.0) He rises from sleep once or twice a night. We have discussed lifestyle modification as a way to reduce nocturia. 01/17/2024 Gastroesophageal reflux disease, esophagitis presence not specified (ICD-10 - K21.9) He was continued on his omeprazole. 01/17/2024 Fever, unspecified fever cause (ICD-10 - R50.9) His temperature was 101. This is likely a urinary tract infection due to the current obstruction of his ureter by a 3 mm stone. A urine culture was ordered and he was given empiric ciprofloxacin. 01/19/2024 Ureterolithiasis (ICD-10 - N20.1) He was told by the urologist that this stone is just about to pass and he should continue with conservative treatment. He has done so. 01/19/2024 Renal colic on right side (ICD-10 - N23) The pain is severe and I have given him 5 oxycodone. 05/23/2024 Centrilobular emphysema (ICD-10 - J43.2) He had a CT scan in the past, who evaluated cough and had early centrilobular emphysema. He is now stop smoking. 05/23/2024 Gastroesophageal reflux disease, esophagitis presence not specified (ICD-10 - K21.9) He was continued on his omeprazole. 08/25/2024 Benign prostatic hyperplasia, unspecified whether lower urinary tract symptoms present (ICD-10 - N40.0) He is taking tamsulosin. He has an appointment with urology in the near future and has seen them recently. He has a history of a partial prostatectomy in the past. He has no symptoms of infection, however. We discussed lifestyle modifications at night help his nocturia. 08/25/2024 Acute viral syndrome (ICD-10 - B34.9) He has a three-day history of a sore throat cough productive of thick white phlegm fever to 101 degree(s) myalgias nausea loose stool and rhinorrhea. He was instructed to consume large amounts of fluid and use acetaminophen. He has tested negative for Covid. He will report to me every other day until he has recovered. 09/28/2023 Immunization, tetanus-diphtheria (ICD-10 - Z23) He received a tetanus immunization today. 01/17/2024 Renal colic (ICD-10 - N23) He is in severe pain. His oxycodone was refilled. He was instructed on consuming fluids. He will be in telephone contact with me on a daily basis. He was instructed to go down stairs 1 flight in this building and report to the urologist on his condition. He will go to the emergency room if necessary. 01/19/2024 Gastroesophageal reflux disease, esophagitis presence not specified (ICD-10 - K21.9) He was continued on his omeprazole. 05/23/2024 Benign prostatic hyperplasia, unspecified whether lower urinary [...] K21.9) He was continued on his omeprazole. 09/28/2023 Obesity (BMI 30.0-34.9) (ICD-10 - E66.9) He has lost 7 pounds. His body mass index is 32. We discussed his weight loss strategies at length. 01/17/2024 Benign prostatic hyperplasia, unspecified whether lower urinary tract symptoms present (ICD-10 - N40.0) He rises from sleep once or twice a night. We have discussed lifestyle modification as a way to reduce nocturia. 01/19/2024 Benign prostatic hyperplasia, unspecified whether lower urinary tract symptoms present (ICD-10 - N40.0) He rises from sleep once or twice a night. We have discussed lifestyle modification as a way to reduce nocturia. 05/23/2024 Obesity (BMI 30.0-34.9) (ICD-10 - E66.9) He has lost 2 pounds. His body mass index is 31. We discussed his weight loss strategies at length. He will continue losing weight. 08/25/2024 Moderate persistent asthma without complication (ICD-10 - J45.40) His wheezing is allergy related and he has no wheezing recently. He will be seen in the spring to monitor this problem. 09/28/2023 Encounter for remova l of sutures (ICD-10 - Z48.02) The suture from the left ear was removed without difficulty. The wound was well-healed. 01/17/2024 Moderate persistent asthma without complication (ICD-10 - J45.40) His wheezing is allergy related and he has no wheezing recently. He will be seen in the spring to monitor this problem. 01/19/2024 Moderate persistent asthma without complication (ICD-10 - J45.40) His wheezing is allergy related and he has no wheezing recently. He will be seen in the spring to monitor this problem. 05/23/2024 Former smoker (ICD-1 0 - Z87.891) He seems highly motivated not to smoke and we discussed a plan to prevent relapse in times of stress or illness or tapering narcotic medication. 08/25/2024 Rotator cuff arthropathy of left shoulder (ICD-10 - M12.812) He reports no change in the status of the pain in the shoulder. He will continue on current therapy without change. 09/28/2023 Former smoker (ICD-1 0 - Z87.891) He seems highly motivated not to smoke and we discussed a plan to prevent relapse in times of stress or illness or tapering narcotic medication. 01/17/2024 Rotator cuff arthropathy of left shoulder (ICD-10 - M12.812) He reports no change in the status of the pain in the shoulder. He will continue on current therapy without change. 01/19/2024 Rotator cuff arthropathy of left shoulder (ICD-10 - M12.812) He reports no change in the status of the pain in the shoulder. He will continue on current therapy without change. 05/23/2024 Moderate persistent asthma without complication (ICD-10 - J45.40) His wheezing is allergy related and he has no wheezing recently. He will be seen in the spring to monitor this problem. 08/25/2024 Rotator cuff arthropathy of right shoulder (ICD-10 - M12.811) Dear has been no change in the shoulder pain. He has been able to perform activities of daily living, however. 01/17/2024 Rotator cuff arthropathy of right shoulder (ICD-10 - M12.811) Dear has been no change in the shoulder pain. He has been able to perform activities of daily living, however. 01/19/2024 Rotator cuff arthropathy of right shoulder (ICD-10 - M12.811) Dear has been no change in the shoulder pain. He has been able to perform activities of daily living, however. 05/23/2024 Rotator cuff arthropathy of right shoulder (ICD-10 - M12.811) Dear has been no change in the shoulder pain. He has been able to perform activities of daily living, however. 08/25/2024 Former smoker (ICD-1 0 - Z87.891) He seems highly motivated not to smoke and we discussed a plan to prevent relapse in times of stress or illness or tapering narcotic medication. 01/17/2024 Former smoker (ICD-1 0 - Z87.891) He seems highly motivated not to smoke and we discussed a plan to prevent relapse in times of stress or illness or tapering narcotic medication. 01/19/2024 Schatzki's ring (ICD-10 - K22.2) He has a history of esophageal dilatation for odynophagia from 2 Schatzki rings. He is currently asymptomatic and will be observed. 05/23/2024 Rotator cuff arthropathy of left shoulder (ICD-10 - M12.812) He reports no change in the status of the pain in the shoulder. He will continue on current therapy without change. 08/25/2024 Other chronic pain (ICD-10 - G89.29) He is no longer receiving narcotic medication. The pain is slightly improved. 01/17/2024 Schatzki's ring (ICD-10 - K22.2) He has a history of esophageal dilatation for odynophagia from 2 Schatzki rings. He is currently asymptomatic and will be observed. 01/19/2024 Former smoker (ICD-1 0 - Z87.891) He seems highly motivated not to smoke and we discussed a plan to prevent relapse in times of stress or illness or tapering narcotic medication. 05/23/2024 Schatzki's ring (ICD-10 - K22.2) He has a history of esophageal dilatation for odynophagia from 2 Schatzki rings. He is currently asymptomatic and will be observed. 08/25/2024 Centrilobular emphysema (ICD-10 - J43.2) He had a CT scan in the past, who evaluated cough and had early centrilobular emphysema. He is now stop smoking. 01/17/2024 Obesity (BMI 30.0-34.9) (ICD-10 - E66.9) He has lost 7 pounds. His body mass index is 32. We discussed his weight loss strategies at length. 01/19/2024 History of diplopia (ICD-10 - Z86.69) 08/25/2024 Obesity (BMI 30.0-34.9) (ICD-10 - E66.9) He has lost 2 pounds. His body mass index is 31. We discussed his weight loss strategies at length. He will continue losing weight. Plan Of Treatment Pending Test Test Name Order Date PROFILE, FASTING (COMPREHENSIVE METABOLI C) 09/18/2020 PROFILE, FASTING (COMPREHENSIVE METABOLI C) 08/08/2018 PROFILE, FASTING (COMPREHENSIVE METABOLI C) 08/29/2021 PROFILE, FASTING (COMPREHENSIVE METABOLI C) 02/11/2018 PROFILE, FASTING (COMPREHENSIVE METABOLI C) 09/28/2023 LIPID PANEL 09/18/2020 LIPID PANEL 08/08/2018 LIPID PANEL 08/29/2021 LIPID PANEL 02/11/2018 PSA, TOTAL 09/28/2023 PSA, TOTAL 09/18/2020 PSA, TOTAL 08/08/2018 PSA, TOTAL 08/29/2021 PSA, TOTAL 02/11/2018 CBC w DIFF 09/18/2020 CBC w DIFF 08/08/2018 CBC w DIFF 08/29/2021 CBC w DIFF 02/11/2018 VITAMIN D 25-OH TOTAL 09/18/2020 VITAMIN D 25-OH TOTAL 08/08/2018 CBC WITH AUTO DIFF 09/28/2023 Lipid Panel 09/28/2023 Vitamin B12 09/18/2020 Urine Dipstick 01/17/2024 Next Appt Details Provider Name:Marco Antonio Mchugh, 01/17/2025 04:00:00 PM, [address] [facility] [address], [place], [address], Insurance Providers Payer Name Payer Address Payer Phone Subscriber Number Group Number Insured Name Patient Relationship to Insured Coverage Start Date Coverage End Date [facility] [address] [place], [place] [phone] [id number] Francis Wetzel Self - patient is the insured Medical (General) History Medical History History ICD Code Asthma, unspecified asthma s everity, unspecified whether complicated, unspecified whether persistent J45.909 Gastroesophageal reflux disease, esophag itis presence not specified K21.9 benign prostatic hypertrophy rotator cuff tear left shoulder 1998. Re pair rotator cuff tear right shoulder, inoper able, 2011 chronic pain history of diplopia history of dilatation of Schatzki ring former smoker hyperplastic rectal polyp healed left rib fracture, by CT subcentimeter pulmonary nodules by CT {'Prostate Condition': 'Part ial prostate removal', 'Breathing Difficulty': 'In cold weather', 'Blood Pressure': 'Slight increase due to stress', 'Weight': 'Loss of 2 lbs', 'Skin Condition': 'Getting darker and harder'} Surgical History Surgery Date(Month/Year) tonsillectomy child rotator cuff tear repair/ left shoulder 1998 fall on ice, torn right rotator cuff 201 2 upper endoscopy with dilatation of Schat zki ring 01/2010 colonoscopy, hyperplastic rectal polyp 1 07/2012 negative upper endoscopy 12/2015 prostate surgery 10/2021 Partial prostate removal No history Hospitalization History Reason Date(Month/Year) No history
--- OUTSIDE RECORDS SUMMARY | 2024-09-07 09:57 | XMS_ITS ---
Author Organization Marco Antonio Mchugh III, MD Address [address] [place] [address] [place] [address] Care Team Providers Care Ladle Repairman Name Role Phone Marco Antonio Mchugh Primary Care Provider Medications Medication SIG (Take, Route, Frequency, Duration) Notes Start Date End Date Status Trelegy Ellipta 200-62.5-25 MCG/ACT 1 puff Inhalation Once a day for 30 days 06/27/2024 06/22/2025 Active Social History Sex Assigned At : Social History Observation Description Sex Assigned At Male Encounters Encounter Location Date Provider Diagnosis Marco Antonio Mchugh III, MD [address] [place] [address] [place] [address] 06/27/2024 Marco Antonio Mchugh Plan Of Treatment Medication Medication Name Sig Start Date Stop Date Notes Trelegy Ellipta 200-62.5-25 MCG/ACT 1 puff Inhalation Once a day for 30 days 06/27/2024 06/22/2025 Next Appt Details Provider Name:Marco Antonio Mchugh, 01/17/2025 04:00:00 PM, [address] [place] [address] [place], [id number], Progress Notes * Francis HSU FDOB: (64 yo M)Acc No.[id number]:06/27/2024 Patient:?Grupo HSU Michelle :1960???Age:64 Y???Sex:Male Address:[address] [place] [address], [place] [address], [place], [address] * Refills? Start Trelegy Ellipta Aerosol Powder Breath Activated, 200-62.5-25 MCG/ACT, Inhalation, 1 Applicator, 1 puff, Once a day, 30 days, Refills=11 * true * Date:? Generated for Leny thapa/Elizabeth/eTsusansmitting on:?09/07/2024 09:57 AM EST
[2024-09-07] MEDS: Albuterol Sulfate 2.5 MG, Albuterol Sulfate (0.083%) 2.5 MG 5 MG INHALE (09:58)
[2024-09-07 10:09] LABS: MANUAL DIFF FLAG NO
[2024-09-07] MEDS: Doxycycline Hyclate 100 MG in 0.9 % Sodium Chloride 250 ML 166.67 MG IV (10:09)
[2024-09-07] MEDS: methylPREDNISolone Sod Succ 125 MG/2 ML VIAL IVPUSH (10:09)
[2024-09-07 10:15] LABS: Basophils Absolute Auto 0.1 X10*3/uL (0.0-0.2); Basophils Percent Auto 0.6 % (0-2); Eosinophils Absolute Auto 0.3 X10*3/uL (0.0-0.4); Eosinophils Percent Auto 2.8 % (0-4); Hematocrit 50.3 % (42.0-52.0); Hemoglobin 17.6 g/dl (14.0-18.0); Imm Gran Abs Auto 0.05 X10*3/uL (0.00-0.03); Imm Gran Pct Auto 0.5 % (0.0-0.4); Lymphocytes Absolute Auto 1.2 X10*3/uL (1.2-4.9); Lymphocytes Percent Auto 11.6 % (20-40); Mean Corpuscular Hemoglobin 31.7 pg (27.0-33.0); Mean Corpuscular Volume 90.5 fL (80.0-98.0); Mean Platelet Volume 10.1 fL (9.4-12.4); Monocytes Absolute Auto 0.8 X10*3/uL (0.1-1.2); Monocytes Percent Auto 7.9 % (2-11); Neutrophils Absolute Auto 7.8 x10*3/uL (2.0-8.3); Neutrophils Percent Auto 76.6 % (45-73); Platelet Count 221 X10*3/uL (160-400); Red Blood Count 5.56 X10*6/uL (4.60-5.80); Red Cell Distribution Width 13.5 % (11.0-16.0); White Blood Count 10.2 X10*3/uL (4.8-10.8)
[2024-09-07 10:20] LABS: INTERNATIONAL NORM RATIO 1.1 (0.9-1.1); Prothrombin Time 12.6 SEC (10.9-12.4)
[2024-09-07 10:26] LABS: Lactic Acid 1.7 mmol/L (0.5-2.0)
[2024-09-07 10:27] LABS: Alanine Aminotransferase 58 U/L (0-40); Albumin Level 4.3 g/dL (3.5-5.0); Alkaline Phosphatase 78 U/L (39-117); Anion Gap 13 (12-20); Aspartate Amino Transferase 44 U/L (5-37); Bilirubin Direct 0.5 mg/dL (0.0-0.5); Bilirubin Total 0.9 mg/dL (0.0-1.0); Blood Urea Nitrogen 13 mg/dL (9-16); Calcium 9.2 mg/dL (8.4-10.2); Carbon Dioxide 27 mmol/L (22-29); Chloride 103 mmol/L (96-108); Creatinine Clr Calc Pharmacy 70.2; Estimated Glomerular Filt Rate > 60; Glucose Random 100 mg/dL (60-115); Lipase 18 U/L (8-78); Potassium 4.3 mmol/L (3.3-5.1); Sodium 139 mmol/L (135-145); Total Protein 7.8 g/dL (6.5-8.0)
[2024-09-07 10:34] LABS: Troponin-I High Sensitivity 4.5 ng/L (<3.5-35.0)
[2024-09-07 11:05] LABS: Influenza A PCR NEGATIVE (Negative); Influenza B PCR NEGATIVE (Negative); Resp Syncy Virus RNA Qual PCR NEGATIVE (Negative); SARS COV2 PCR INHOUSE NEGATIVE (Negative)
[2024-09-07 11:16] LABS: B Type Natriuretic Peptide < 10 pg/mL (<100)
== END 2024-09-07 16:03 | disposition left against medical advice (07) ==
PROVIDERS: Emergency Provider Emergency Medicine; PCP Internal Medicine Medical Oncology
DX: J44.1 Chronic obstructive pulmonary disease with (acute) exacerbation (principal); R06.02 Shortness of breath; Z87.891 Personal history of nicotine dependence; Z79.899 Other long term (current) drug therapy; Z51.81 Encounter for therapeutic drug level monitoring; Z03.818 Encounter for observation for suspected exposure to other biological agents ruled out
CPT/HCPCS: 0241U; 36415; 71045; 80048; 80076; 83605; 83690; 83880; 84484; 85025; 85610; 87040; 93005; 94640; 99285; J2919

== ENCOUNTER → 2024-09-07 09:36 | Outpatient (BNV) | payer BC, SELFPAY | PROVIDERS: Emergency Provider Emergency Medicine; PCP Internal Medicine Medical Oncology; Visit Provider Radiology Diagnostic Radiology | DX: R06.02 Shortness of breath (principal) | CPT/HCPCS: 71045 ==

== ENCOUNTER → 2024-09-07 09:36 | Outpatient (BNV) | payer BC, SELFPAY | PROVIDERS: Emergency Provider Emergency Medicine; PCP Internal Medicine Medical Oncology; Visit Provider Internal Medicine | DX: R06.02 Shortness of breath (principal) | CPT/HCPCS: 93010 ==

== ENCOUNTER 2024-09-22 15:00 | Outpatient (REF) | payer BC, SELFPAY ==
--- NOTE | ~2024-09-22 | CT_ITS ---
CLINICAL HISTORY: Z87.891 - Personal history of nicotine dependence CT lung cancer screening (LDCT) Comparison: CT - CHEST WITHOUT CONTRAST [address] - 07/08/15 08:35 EST Technique: Axial CT images of the chest using low-dose technique. Referring provider counseled the patient on shared decision-making for LDCT screening. Additional counseling was provided on smoking cessation. Effective radiation dose total: DLP 53.5 mGycm, CTDIvol 1.7 mGy. Findings: The prior CT report is not available for review. Lung: Moderate centrilobular emphysema. Stable 5.6 mm nodule of the lingula series 6, image 96. Stable additional micro nodules. Coronary artery calcifications: None Limited upper abdomen: Unremarkable Other: None Impression: LungRADS 2 - Benign Appearance: Continue annual screening with low dose Chest CT in 12 months. ##L2# Category 1: Normal; continue annual screening Category 2: Benign appearance or behavior, continue annual screening Category 3: Probably benign, [address] recommended Category 4A: Suspicious, [address] recommended; may consider PET/CT Category 4B: Suspicious, Additional diagnostics and/or tissue sampling recommended Category 4X: Suspicious, Additional diagnostics and/or tissue sampling recommended Category 0: Recalls (incomplete screen due to Incomplete coverage, Noise, Respiratory motion, Expiration, Obscured by acute abnormality) This document has been electronically signed by: Shanthi Garcia MD on 09/25/2024 13:24:21
--- OUTSIDE RECORDS SUMMARY | 2024-09-22 16:42 | XMS_ITS | Clinical Summary ---
Author Organization [employer] Address [address] [facility] [address] [place] [address] Care Team Providers Care Risk Management Intern Name Role Phone Unavailable Primary Care Provider [...] topic Insurance dr [id number] [id number] [facility] [address]
--- OUTSIDE RECORDS SUMMARY | 2024-09-22 16:42 | XMS_ITS | Patient Health Record ---
Author Organization Marco Antonio Mchugh III, MD Address [address] [place] [address] Care Team Providers Care Floor Polisher Name Role Phone Marco Antonio Mchugh Primary Care Provider Allergies Allergen (clinical drug ingredient) Drug/Non Drug Allergy documented on EMR Reaction Allergy Type Onset Date Status No Known Drug Allergy Unknown Drug Allergy Active Results Component Value Reference Range Notes Urine Culture Reviewed date:01/22/2024 06:44:59 AM Interpretation: Performing Lab:[facility], [address] [place] [phone] Notes/Report: Urine Culture No growth. Complete Blood Count Auto Di ff Reviewed date:01/15/2024 04:10:49 AM Interpretation: Performing Lab:[facility], [address] [place] [address] Notes/Report: White Blood Count 9.9 4.8-10.8 X10*3/uL [...] Panel Reviewed date:01/15/2024 04:10:49 AM Interpretation: Performing Lab:[facility], [address] [place] [address] Notes/Report: Bilirubin Total 0.3 0.0-1.0 mg/dL Bilirubin Direct 0.2 0.0-0.5 mg/dL Aspartate Amino Transferase 24 5-37 U/L Alanine Aminotransferase 34 0-40 U/L Total Protein 6.7 6.5-8.0 g/dL Albumin Level 4.0 3.5-5.0 g/dL Alkaline Phosphatase 73 39-117 U/L Basic Metabolic Panel Reviewed date:01/15/2024 04:10:49 AM Interpretation: Performing Lab:[facility], [address] [place] [phone] Notes/Report: Sodium 142 135-145 mmol/L Potassium 3.7 [...] Estimated Glomerular Filt Rate 45 NOTE: For -Tunisian individuals, multiply the result by 1.210. Chronic Kidney Disease: Estimated GFR < 60 mL/min/1.73m2 Severe Kidney Disease: Estimated GFR < 15 mL/min/1.73m2 Glucose Random 107 60-115 mg/dL Calcium 8.7 8.4-10.2 mg/dL UA CC w/rflx Micro + Cult Reviewed date:01/15/2024 04:10:49 AM Interpretation: Performing Lab:[facility], [address] [place] [address] Notes/Report: [id number] Urine, Clean Catch Color Urine Yellow Appearance Urine Clear PH 5.5 5.0-9.0 Glucose Urine UA Negative Negative mg/dL Urine Blood Negative Negative Specific [place] - Urine 1.010 1.005-1.025 Urine Protein Negative Neg-Trace mg/dL Urine Ketones Negative Negative mg/dL Nitrite Urine Negative Negative Leukocyte Esterase Urine Negative Negative CT abdomen pelvis wo con Reviewed date:01/15/2024 04:10:49 AM Interpretation: Performing Lab: Notes/Report: [address] [address] [address] Scan Report Signed Patient: Francis Hsu MR#: [id number] : 1960 Acct:[id number] Age/Sex: 63 / M ADM Date: 01/13/24 Loc: HO.ED Attending Dr: Ordering Physician: Fariba Isbell Date of Service: 01/13/24 Procedure(s): CT abdomen pelvis wo IV con Accession Number(s): [id number] cc: Marco Antonio Mchugh MD; Fariba Isbell [...] MD in OV> 01/13/242035 DD/ 52 TD/TT: Waste Oil Pumper: [address] [address] [address] Scan Report Signed Patient: Francis Hsu MR#: [id number] : 1960 Acct:[id number] Age/Sex: 63 / M ADM Date: 01/13/24 Loc: HO.ED Attending Dr: Ordering Physician: Fariba Isbell Date of Service: 01/13/24 Procedure(s): CT abd omen pelvis wo IV con Accession Number(s): [id number] cc: Marco Antonio Mchugh MD; Fariba Isbell [...] VISCERA: Pros lawrence gland is unremarkable. MUSCULOSKELETAL: Multilevel osteophyte formation [...] MD in OV> 01/13/242035 DD/ 52 TD/TT: Side Splitter ist: PD Blood Culture (First) (Not y et reviewed by provider) Interpretation: Performing Lab:[facility], [address] [place] [phone] Notes/Report: Blood Culture (First) No growth after 5 days. Blood Culture (Second) (Not yet reviewed by provider) Interpretation: Performing Lab:[facility], [address] [place] [address] Notes/Report: Blood Culture (Second) No growth after 5 days. Complete Blood Count Auto Di ff Reviewed date:09/10/2024 09:05:54 AM Interpretation: Performing Lab:[facility], [address] [place] [address] Notes/Report: White Blood Count 10.2 4.8-10.8 X10*3/uL Red Blood Count 5.56 4.60-5.80 X10*6/uL Hemoglobin 17.6 14.0-18.0 g/dl Hematocrit 50.3 42.0-52.0 % Mean Corpuscular Volume 90.5 80.0-98.0 fL Mean Corpuscular Hemoglobin 31.7 27.0-33.0 pg Mean Corpuscular HGB Conc 35.0 31.0-36.0 g/dl Red Cell Distribution Width 13.5 11.0-16.0 % Platelet Count 221 160-400 X10*3/uL Mean Platelet Volume 10.1 9.4-12.4 fL Neutrophils Percent Auto 76.6 45-73 % Imm Gran Pct Auto 0.5 0.0-0.4 % Lymphocytes Percent Auto 11.6 20-40 % Monocytes Percent Auto 7.9 2-11 % Eosinophils Percent Auto 2.8 0-4 % Basophils Percent Auto 0.6 0-2 % NRBC Pct Auto 0.0 0.0-0.2 /100WBC Neutrophils Absolute Auto 7.8 2.0-8. 3 x10*3/uL Imm Gran Abs Auto 0.05 0.00-0.03 X10*3/uL Lymphocytes Absolute Auto 1.2 1.2-4. 9 X10*3/uL Monocytes Absolute Auto 0.8 0.1-1.2 X10*3/uL Eosinophils Absolute Auto 0.3 0.0-0. 4 X10*3/uL Basophils Absolute Auto 0.1 0.0-0.2 X10*3/uL NRBC Abs Auto 0.000 0.0-0.012 X10*3/uL Prothrombin Time INR Reviewed date:09/10/2024 09:05:54 AM Interpretation: Performing Lab:[address] [address] Notes/Report: Prothrombin Time 12.6 10.9-12.4 SEC INTERNATIONAL NORM RATIO 1.1 0.9-1.1 INTERNATIONAL NORMALIZED RATIO (INR) REFERENCE RANGES Reference Range For patients not on anticoagulant therapy: 0.9 - 1.1 INR ranges for oral anticoagulant therapy: For prevention and treatment of venous thrombosis and pulmonary embolism: 2.0 - 3.0 For acute myocardial infarction with aspirin therapy: 2.0 - 3.0 For acute myocardial infarction without aspirin therapy: 3.0 - 4.0 For patients with mechanical prosthetic heart valves: 2.5 - 3.5 Liver Panel Reviewed date:09/10/2024 09:05:54 AM Interpretation: Performing Lab:[facility], [address] [place] [address] Notes/Report: Bilirubin Total 0.9 0.0-1.0 mg/dL Bilirubin Direct 0.5 0.0-0.5 mg/dL Aspartate Amino Transferase 44 5-37 U/L Alanine Aminotransferase 58 0-40 U/L Total Protein 7.8 6.5-8.0 g/dL Albumin Level 4.3 3.5-5.0 g/dL Alkaline Phosphatase 78 39-117 U/L Basic Metabolic Panel Reviewed date:09/10/2024 09:05:54 AM Interpretation: Performing Lab:[address] [address] Notes/Report: Sodium 139 135-145 mmol/L Potassium 4.3 3.3-5.1 mmol/L Chloride 103 96-108 mmol/L Carbon Dioxide 27 22-29 mmol/L Anion Gap 13 12-20 Blood Urea Nitrogen 13 9-16 mg/dL Creatinine 1.15 0.5-1.4 mg/dL Creatinine Clr Calc Pharmacy 70.2 eGFR (calculated from the MDRD study equation) and eCrCl (calculated from the Cockcroft-Gault equation) are based on different parameters and may not yield comparable results. If eCrCl result is absurd, please check patient's height/weight. Estimated Glomerular Filt Rate > 60 Chronic Kidney Disease: Estimated GFR < 60 mL/min/1.73m2 Severe Kidney Disease: Estimated GFR < 15 mL/min/1.73m2 Glucose Random 100 60-115 mg/dL Calcium 9.2 8.4-10.2 mg/dL Lactic Acid Reviewed date:09/10/2024 09:05:54 AM Interpretation: Performing Lab:[facility], [address] [place] [phone] Notes/Report: Lactic Acid 1.7 0.5-2.0 mmol/L Troponin-I High Sensitivity Reviewed date:09/10/2024 09:05:54 AM Interpretation: Performing Lab:[facility], [address] [place] [address] Notes/Report: Troponin-I High Sensitivity 4.5 <3.5-35.0 ng/ L [place] high sensitivity Troponin-I results should be used in conjunction with other diagnostic information such as ECG, clinical observations and information, and patient symptoms to aid in the diagnosis of MN. B Type Natriuretic Peptide Reviewed date:09/10/2024 09:05:54 AM Interpretation: Performing Lab:[facility], [address] [place] [address] Notes/Report: B Type Natriuretic Peptide < 10 <100 pg/mL For those patients who are being treated with Natrecor (nesiritide, recombinant BNP), BNP testing should be performed at least two hours post treatment in order to ensure that only endogenous levels of BNP are detected. Lipase Reviewed date:09/10/2024 09:05:54 AM Interpretation: Performing Lab:[facility], [address] [place] [phone] Notes/Report: Lipase 18 8-78 U/L SARS-CoV2/FLU/RSV Reviewed date:09/10/2024 09:05:54 AM Interpretation: Performing Lab:[address] [address] Notes/Report: Influenza A PCR NEGATIVE Negative Influenza B PCR NEGATIVE Negative Resp Syncy Virus RNA Qual PCR NEGATIVE Negative SARS COV2 PCR INHOUSE NEGATIVE Negative All test results must be correlated with clinical findings. Negative results do not preclude SARS-CoV2, influenza A virus, influenza B virus and/or RSV infection and should not be used as the sole basis for treatment or other patient management decisions. Negative results must be combined with clinical observations, patient history, and epidemiological information. This test has not been evaluated for monitoring treatment of infection. This test has been authorized by the FDA under an Emergency Use Authorization (EUA) for use by authorized laboratories. Testing performed on the [employer] GeneXpert utilizing real-time RT-PCR. All SARS CoV2 and positive influenza A/B results are reported to [facility]. XR chest 1V Reviewed date:09/10/2024 09:05:54 AM Interpretation: Performing Lab: Notes/Report: [address] [address] XRay Report Signed Patient: Francis Hsu MR#: [id number] : 1960 Acct:[id number] Age/Sex: 64 / M ADM Date: 09/07/24 Loc: .ED Attending Dr: Ordering Physician: Nolan Carbajal MD Date of Service: 09/07/24 Procedure(s): XR chest 1V Accession Number(s): [id number] cc: Marco Antonio Mchugh MD; Nolan Carbajal MD EXAMINATION: XR CHEST CLINICAL INFORMATION: SOB COMPARISON: None available. Correlation made with CT chest 07/24/2014. TECHNIQUE: Frontal view of the chest was obtained. FINDINGS: The cardiac, hilar, and mediastinal contours are normal. The lungs are clear bilaterally. No pneumothorax or effusion. No focal osseous or soft tissue abnormality. There are degenerative changes in both shoulder joints and throughout the spine. Surgical anchor left humeral head. Narrowed subacromial space bilaterally suggesting rotator cuff tearing. XR/XR chest 1V IMPRESSION: No active pulmonary disease. Electronically signed by: Phong Matute MD 09/07/2024 09:55 AM [facility] Dictated By: Phong Matute MD Signed By: <Electronically signed by Phong Matute MD in OV> 09/07/2455 DD/ TD/TT: 09/07/24 0948 Waste Oil Pumper: [address] [address] XRay Report Signed Patient: Francis Hsu MR#: [id number] : 1960 Acct:[id number] Age/Sex: 64 / M ADM Date: 09/07/24 Loc: HO.ED Attending Dr: Ordering Physician: Nolan Carbajal MD Date of Service: 09/07/24 Procedure(s): XR chest 1V Accession Number(s): [id number] cc: Marco Antonio Mchugh MD; Nolan Carbajal MD EXAMINATION: XR CHEST CLINICAL INFORMATION: SOB COMPARISON: None available. Correlation made wit h CT chest 07/24/2014. TECHNIQUE: Frontal view of the chest was obtained. FINDINGS: The cardiac, hilar, and mediastinal contours are normal. The lungs are clear bilaterally. No pneumothorax or effusion. No focal osseous or soft tissue abnormality. There are degenerative changes in both shou lder joints and throughout the spine. Surgical anchor left humeral head. Narrowed subacromial space bilaterally suggesti ng rotator cuff tearing. X R/XR chest 1V IMPRESSION: No active pulmonary disease. Electronically rancho d by: Phong Matute MD 09/07/2024 09:55 AM [facility] Dictated By: Phong Alvarado MD Signed By: <[facility] signed by Phong Matute MD in OV> 09/07/24 0955 DD/ 0945 TD/TT: 09/07/24 0948 Waste Oil Pumper: Reason For Referral Reason Consult and Treat Diagnosis 1 Screen for colon can cer (Z12.11) Referral Organization Marco Antonio Mchugh III, MD Referring Provider First Name Marco Antonio Referring Provider Last Name Jeison Referring Provider Speciality Internal edicine Referred Provider [facility], Gastroenterology Referred Provider Specialty Gastroentero logy General Notes Felice Mora [facility] 03/08/2024 11:50:55 AM >Referral Faxed to [facility] Gastro. Referral Priority Routine Reason BPH S/P TURP with Dr Rowland years ago Diagnosis 1 Benign prostatic hyp erplasia, unspecified whether lower urinary tract symptoms present (N40.0) Referral Organization Marco Antonio Mchugh III, MD Referring Provider First Name Marco Antonio Referring Provider Last Name Jeison Referring Provider Speciality Internal edicine Referred Provider [facility], Urology Referred Provider Specialty Urology General Notes Huong Dennis [facility] 05/25 03:08:18 PM >ref/demo/progress note/labs faxed to [place] [facility] de[facility], Huong Dennis [facility] 05/30/2024 10:25:39 AM >ref demo progress notes x rays faxed to [place] [facility] dept 2 nd time, Huong Dennis [facility] 06/01/2024 03:01:27 PM >Called Dr Barber office pt has appt on 07/25/2024 at 10am Referral Priority Routine Referral Appointment Date 07/25/2024 Reason Evaluate and Treat Diagnosis 1 Moderate persistent asthma without complication (J45.40) Diagnosis 2 Centrilobular emphys maryann (J43.2) Referral Organization Marco Antonio Mchugh III, MD Referring Provider First Name Marco Antonio Referring Provider Last Name Jeison Referring Provider Speciality Internal M edicine Referred Provider [facility], Pulmonology Referred Provider Specialty Pulmonary Di seases General Notes Kalee Gomez 06/28/2024 11:38:41 AM [...] Omeprazole 20 MG TAKE 1 CAPSULE BY [facility] EVERY DAY 30 MINUTES BEFORE BREAKFAST Active [...] Problem Status W/U Status Risk Notes Problem 2768578 Former smoker (Z87.891) Active confirmed He seems highly motivated not to smoke and we discussed a plan to prevent relapse in times of stress or illness or tapering narcotic medication. Problem 230483356029029 Obesity (BMI 30.0-34.9) (E66.9) Active confirmed He has lost 2 pounds. His body mass index is 31. We discussed his weight loss strategies at length. He will continue losing weight. Problem 87223128 Other chronic pain (G89.29) Active confirmed He is no longer receiving narcotic medication. The pain is slightly improved. Problem 02182649 Centrilobular emphysema (J43.2) Active confirmed He had a CT scan in the past, who evaluated cough and had early centrilobular emphysema. He is now stop smoking. Problem Gastroesophageal reflux disease (357013771) Gastroesophageal reflux disease, esophagitis presence not specified (K21.9) Active confirmed He was continued on his omeprazole. Problem 956776238 Hyperplastic rectal polyp (K62.1) Active confirmed Problem 502926204 Schatzki's ring (K22.2) Active confirmed He has a history of esophageal dilatation for odynophagia from 2 Schatzki rings. He is currently asymptomatic and will be observed. Problem Benign prostatic hypertrophy without outflow obstruction (940263704) Benign prostatic hyperplasia, unspecified whether lower urinary tract symptoms present (N40.0) Active confirmed He is taking tamsulosin. He has an appointment with urology in the near future and has seen them recently. He has a history of a partial prostatectomy in the past. He has no symptoms of infection, however. We discussed lifestyle modifications at night help his nocturia. Problem 127239651 Moderate persistent asthma without complication (J45.40) Active confirmed His wheezing is allergy related and he has no wheezing recently. He will be seen in the spring to monitor this problem. Problem 71051957489074292 Rotator cuff arthropathy of left shoulder (M12.812) Active confirmed He reports no change in the status of the pain in the shoulder. He will continue on current therapy without change. Problem 77080811952119246 Rotator cuff arthropathy of right shoulder (M12.811) Active confirmed Dear has been no change in the shoulder pain. He has been able to perform activities of daily living, however. Problem 087600686 History of diplopia (Z86.69) Active confirmed Problem 015557257 Acute viral syndrome (B34.9) Active confirmed He [...] Provider Diagnosis Marco Antonio Mchugh III, MD [address] [place] [address] [place] [address] 09/28/2023 Marco Antonio Mchugh Gastroesophageal ref lux disease, esophagitis presence not specified K21.9 ; Benign prostatic hyperplasia, unspecified whether lower urinary tract symptoms present N40.0 ; Immunization, tetanus-diphtheria Z23 ; Obesity (BMI 30.0-34.9) E66.9 ; Encounter for removal of sutures Z48.02 and Former smoker Z87.891 Marco Antonio Mchugh III, MD [address] [place] [address] [place] [address] 01/17/2024 Marco Antonio Mchugh Gastroesophageal ref lux [...] 30.0-34.9) E66.9 Marco Antonio Mchugh III, MD [address] [place] [address] [place] [address] 01/19/2024 Marco Antonio Mchugh Renal colic on [...] diplopia Z86.69 Marco Antonio Mchugh III, MD [address] [place] [address] [place] [address] 05/23/2024 Marco Antonio Mchugh Gastroesophageal ref lux [...] ring K22.2 Marco Antonio Mchugh III, MD [address] [place] [address] [place] [address] 08/25/2024 Marco Antonio Mchugh Acute viral syndrome [...] 30.0-34.9) E66.9 Marco Antonio Mchugh III, MD [address] [place] [address] [place] [address] 03/02/2024 Marco Antonio Mchugh III, MD [address] [place] [address] [place] [address] 11/16/2023 Marco Antonio Mchugh III, MD [address] [place] [address] [place] [address] 01/25/2024 Marco Antonio Mchugh III, MD [address] [place] [address] [place] [address] 04/30/2024 Marco Antonio Mchugh III, MD [address] [place] [address] [place] [address] 06/27/2024 Marco Antonio Mchugh III, MD [address] [place] [address] [place] [address] 06/27/2024 Marco Antonio Mchugh Assessments Encounter Date [...] Order Date PROFILE, FASTING (COMPREHENSIVE METABOLI C) 09/28/2023 PROFILE, FASTING (COMPREHENSIVE METABOLI C) 09/18/2020 PROFILE, FASTING (COMPREHENSIVE METABOLI C) 08/08/2018 PROFILE, FASTING (COMPREHENSIVE METABOLI C) 08/29/2021 PROFILE, FASTING (COMPREHENSIVE METABOLI C) 02/11/2018 LIPID PANEL 09/18/2020 LIPID PANEL 08/08/2018 LIPID PANEL 08/29/2021 LIPID PANEL 02/11/2018 PSA, TOTAL 02/11/2018 PSA, TOTAL 09/28/2023 PSA, TOTAL 09/18/2020 PSA, TOTAL 08/08/2018 PSA, TOTAL 08/29/2021 CBC w DIFF 09/18/2020 CBC w DIFF 08/08/2018 CBC w DIFF 08/29/2021 CBC w DIFF 02/11/2018 VITAMIN D 25-OH TOTAL 09/18/2020 VITAMIN D 25-OH TOTAL 08/08/2018 CBC WITH AUTO DIFF 09/28/2023 Lipid Panel 09/28/2023 Vitamin B12 09/18/2020 Urine Dipstick 01/17/2024 Blood Culture (First) 09/07/2024 Blood Culture (Second) 09/07/2024 Next Appt Details Provider Name:Marco Antonio cMhugh, 01/17/2025 04:00:00 PM, [address] [place] [address] [address], [place], [address], Insurance Providers Payer Name Payer Address Payer Phone Subscriber Number Group Number Insured Name Patient Relationship to Insured Coverage Start Date Coverage End Date [facility] [address] [place], [place] [id number] [phone] [id number] Francis Wetzel Self - patient is the insured Medical (General) History Medical History History ICD Code Asthma, unspecified asthma s everity, unspecified whether complicated, unspecified whether persistent J45.909 Gastroesophageal reflux disease, esophag itis presence not specified K21.9 benign prostatic hypertrophy rotator cuff tear left shoulder 1998. Re pair rotator cuff tear right shoulder, inoper able, 2012 chronic pain history of diplopia history of [...]
--- OUTSIDE RECORDS SUMMARY | 2024-09-22 16:42 | XMS_ITS | Patient Health Record ---
Author Organization [facility] Address [address] [place] [address] Care Team Providers Care Carpet Winder Name Role Phone Drew Bustamante Primary Care Provider Marco Antonio Lenz [phone] Reason For Referral No Information Medications Medication SIG (Take, Route, Frequency, Duration) Notes Start Date End Date Status oxyCODONE HCl 5mg 1 not daily 07/19/2024 1 Active Colyte with Flavor Packs 227.1 GM as directed Orally as directed for 1 day(s) 03/22/2013 Active Spiriva HandiHaler 18mg 07/19/202407/19 Active Ventolin HFA as needed 07/19/20242024 Active Prilosec 20mg 1 QD(occ. BID) 07/19/2024 07/19/2024 Active Problems Problem Type SNOMED Code ICD Code Onset Dates Problem Status W/U Status Risk Notes Problem Reflux esophagitis (396955845) Reflux esophagitis (530.11) Active confirmed Problem Colon cancer screening (431838729) Colon cancer screening (V76.51) Active confirmed Problem Gastroesophageal reflux disease (079812033) GERD (gastroesophag eal reflux disease) (530.81) Active confirmed Plan Of Treatment Future Test Test Name Order Date COLONOSCOPY 03/22/2013 Insurance Providers Payer Name Payer Address Payer Phone Subscriber Number Group Number Insured Name Patient Relationship to Insured Coverage Start Date Coverage End Date [facility] [employer] [facility] [address] [address] [place], [place] [id number] YADIRA ORTIZ Self - patient is the insured Medical (General) History Medical History History ICD Code asthma hypertension GERD-had an EGD with Dr. Yobany sanchez in 01/2010-esophagitis, distal esophageal ring-dilated with a 19mm balloon, Hiatal hernia Torn rotator cuff on the right-seeing Dr Kaur Jack [place],DM,CVA,renal disease Surgical History Surgery Date(Month/Year) shoulder surgery skin graft on right leg and left hand
--- OUTSIDE RECORDS SUMMARY | 2024-09-22 16:42 | XMS_ITS ---
Author Organization Marco Antonio Mchugh III, MD Address [address] [place] [address] Care Team Providers Care Eeg Tech Name Role Phone Marco Antonio Mchugh Primary [...] Omeprazole 20 MG TAKE 1 CAPSULE BY [facility] EVERY DAY 30 MINUTES BEFORE BREAKFAST Active [...] Problem Status W/U Status Risk Notes Problem 292101097 Acute viral syndrome (B34.9) Active confirmed He [...] Provider Diagnosis Marco Antonio Mchugh III, MD [address] [place] [address] [place] [address] 08/25/2024 Marco Antonio Mchugh Acute viral syndrome [...] Omeprazole 20 MG TAKE 1 CAPSULE BY [facility] EVERY DAY 30 MINUTES BEFORE BREAKFAST Trelegy [...] Provider Name:Marco Antonio Mchugh, 01/17/2025 04:00:00 PM, [address] [place] [address] [address], [place], [address], Progress Notes * Francis HSU FDOB: (64 yo M)Acc No.[id number]:08/25/2024 Patient:?Grupo HSU Provider:?Marco Antonio Mchugh MD :1960???Age:64 Y???Sex:Male Jorge e:08/25/2024 Address:[address] [place] [address], [place] [address], [facility] Subjective: * Chief Complaints: * ???Viral syndromeBenign [...] use:?Former smoker ???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 He has no toxic exposures. He [...] Mchugh MD Date:?01/2025 Generated for Leny thapa/Elizabeth/Gabriella on:?09/22/2024 04:41 PM EST History and Physical Notes * HPI (History of Present Illness) Category Sub-Category Detail Notes COVID-19 Screening Questions Have you had any new onset fever, chills, cough, congestion, sore throat, shortness of breath, muscle aches?: No
--- OUTSIDE RECORDS SUMMARY | 2024-09-22 16:42 | XMS_ITS ---
Author Organization Marco Antonio Mchugh III, MD Address [address] [place] [address] [place] [address] Care Team Providers Care Lawn Care Technician Name Role Phone Marco Antonio Mchugh Primary Care Provider Allergies Allergen (clinical drug ingredient) Drug/Non Drug Allergy documented on EMR Reaction Allergy Type Onset Date Status No Known Drug Allergy Unknown Drug Allergy Active REASON FOR VISIT Follow up Medications Medication SIG (Take, Route, Frequency, Duration) Notes Start Date End Date Status Omeprazole 20 MG TAKE 1 CAPSULE BY [facility] EVERY DAY 30 MINUTES BEFORE BREAKFAST [...] Provider Diagnosis Marco Antonio Mchugh III, MD [address] [place] [address] [place] [address] 08/04/2024 Marco Antonio Mchugh Gastroesophageal ref lux [...] Provider Name:Marco Antonio Mchugh, 01/17/2025 04:00:00 PM, [address] [place] [address] DEON [place], [place], [address], Progress Notes * Francis HSU FDOB: (64 yo M)Acc No.[id number]:08/04/2024 Progress Notes Patient:?Grupo HSU F Provider:?Marco Antonio Mchugh MD :1960???Age:64 Y???Sex:Male Jorge e:08/04/2024 Address:[address] [place], [place] [id number] Subjective: * Chief Complaints: * ???1. 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 He [...] Mchugh MD Date:?07/19 Generated for Leny thapa/Elizabeth/Jarrellitting on:?09/22/2024 04:42 PM EST History and Physical Notes * [...]
--- OUTSIDE RECORDS SUMMARY | 2024-09-22 16:42 | XMS_ITS ---
Author Organization Marco Antonio Mchugh III, MD Address [address] [place] [address] [place] [address] Care Team Providers Care Equipment Installer Name Role Phone Marco Antonio Mchugh Primary Care Provider Medications Medication SIG (Take, Route, Frequency, Duration) Notes Start Date End Date Status Trelegy Ellipta 200-62.5-25 MCG/ACT 1 puff Inhalation Once a day for 30 days 06/27/2024 06/22/2025 Active Social History Sex Assigned At : Social History Observation Description Sex Assigned At Male Encounters Encounter Location Date Provider Diagnosis Marco Antonio Mchugh III, MD [address] [place] [address] [place] [address] 06/27/2024 Marco Antonio Mchugh Plan Of Treatment Medication Medication Name Sig Start Date Stop Date Notes Trelegy Ellipta 200-62.5-25 MCG/ACT 1 puff Inhalation Once a day for 30 days 06/27/2024 06/22/2025 Next Appt Details Provider Name:Marco Antonio Mchugh, 01/17/2025 04:00:00 PM, [address] [place] [address] [place], [address], Progress Notes * Francis HSU FDOB: (64 yo M)Acc No.[id number]:06/27/2024 Patient:?Grupo HSU Michelle :1960???Age:64 Y???Sex:Male Address:[address] [place] [address], [place] [address], [place], [address] * Refills? Start Trelegy Ellipta Aerosol Powder Breath Activated, 200-62.5-25 MCG/ACT, Inhalation, 1 Applicator, 1 puff, Once a day, 30 days, Refills=11 * true * Date:? Generated for Leny thapa/Elizabeth/eTsusansmitting on:?09/22/2024 04:42 PM EST
--- OUTSIDE RECORDS SUMMARY | 2024-09-22 16:42 | XMS_ITS | Data Portability ---
Author Organization DIANDRA Restrepo s, [address] Address [address] [place] [address] Care Team Providers Care Director Of Primary Name Role Phone JOHAN AGUILA Primary Care Provider Assessment No assessment recorded. Plan of Treatment Reminders Order Date Submit Date Provider Last Modified By Organization Details Last Modified Time Details Appointments None recorded . Lab None recorded . Referral orthoped ic surgeon [facility]avad Hinson), [address] [facility] [place], [address], 3 08:51:54 Procedures None recorded . Surgeries None recorded . Imaging XR, elbow, 3 or more view 2022 023 [email or web address] 9 [facility], [address] [place], [address], 3 19:24:41 electroc ardiogra m 2022 023 [email or web address] 9 _aarti [facility]offmiranda, [address] [facility], [place], [address], 3 19:24:41 XR, chest, 2 view 2022 023 [email or web address] 9 [facility], [address] [place], [address], 3 19:24:41 Medication Orders benzonat ate 100 mg capsule 2022 023 [email or web address] [id number], [address] [place], [place], [id number], 10:46:53 doxycycl ine hyclate 100 mg capsule 2022 023 [email or web address] [id number], [address] [place], [place], [phone], 10:47:02 Patient TargetsNo targets recorded. Patient Instructions Encounter Date Encounter Id Patient Instructions Last Modified By Organization Details Last Modified Time 02/13/2023 [id number] fainting: care instructions [email or web address] Not available 02/13/2023 19:03:03 lightheadedness or faintness: care instructions [email or web address] Not available 02/13/2023 19:03:03 chronic obstruct trinh pulmonary disease (COPD) flare-ups: care instructions [email or web address] Not available 02/13/2023 19:03:03 cough: care instructions [email or web address] Not available 02/13/2023 19:03:03 bronchitis: care instructions [email or web address] Not available 02/13/2023 19:16:12 Your EKG was abnormal but you have elected not to go to the Emergency Department for evaluation but instead follow-up with your doctor. A copy of your EKG has been provided and you should follow-up with your doctor tomorrow. You are encouraged to change your mind and go to the Emergency Department after leaving [facility]. Use your inhalers as prescribed by [...] has been made for you - call [facility] for an appointment as soon as possible. See printed instructions and work note. Seek Emergency Medical evaluation for any worsening symptoms. [email or web address] Not available 02/13/2023 19:18:50 EKG performed fi [...] still declines to go to the ER. [email or web address] Not available 02/13/2023 18:54:05 05/26/2023 [id number] shortness of breath: care instructions Not available [...] am No observ ation record ed. MAURY [address], [address], 02/13/2023 19:03:04 02/14/20 23 02/13/2023 XR, chest , 2 view No observ ation record ed. [email or web address] [facility] [address] [place], [address], 02/13/2023 19:14:11 02/14/20 23 02/13/2023 XR, elbow , 3 or more view No observ ation record ed. [email or web address] [facility] [address] [place], [address], 02/13/2023 19:14:11 Result Notes None recorded. Problems Name Problem SNOMED Code Status Onset Date Resolution Date Notes Provider Name and Address Organization Details Recorded Time Asthma 529399415 Active 2022 Amarilis Anastasiya null, PA - [facility] 3 16:45:30 Chronic obstructive pulmonary disease 63320126 Active 2022 Amarilis Anastasiya null, PA - [facility] 3 16:45:34 Gastroesophage al reflux disease 811402226 Active 2022 Amarilis Anastasiya null, PA - [...] LastModified Time 02/13/2023 electrocardiogram completed MAURY [id number], [place], [address], 02/13/2023 19:03:04 02/13/2023 XR, chest, 2 view completed [email or web address] [facility] [address] [place], [address], 02/13/2023 19:14:11 02/13/2023 XR, elbow, 3 or more view completed [email or web address] [facility] [address] [place], [address], 02/13/2023 19:14:11 Procedure Notes None recorded. Medical [...] Address Organization Details Last Updated DateTime 3 408927. 28 g 31.4 kg/m2 180.34 cm 8 [...] Updated DateTime 3 180.34 cm 30.7 kg/m2 38172.3 2 g 92 % 92 % 83 /min 22 /min 98.4 [degF] 120 mm[Hg] 80 mm[Hg] LIZ DOTSON PA - [facility] 3 10:48:39 Social History Question Answer Notes LastModified by Organizat ion Details LastModified Time Tobacco Smoking Status Never Smoker Amarilis [place] null, PA - [facility] 02/13/2023 16:46:14 [...] Influenza, MDCK, quadrivalent, PF 0 completed Amarilis [place] null, PA - [facility] 02/13/2023 16:45:01 COVID-19, mRNA, LNP-S, PF, 100 mcg/0.5mL dose or 50 mcg/0.25mL dose 1 completed Amarilis Anastasiya null, PA - [facility] 02/13/2023 16:45:01 COVID-19, mRNA, LNP-S, PF, 100 mcg/0.5mL dose or 50 mcg/0.25mL dose 1 completed Amarilis [place] null, PA - [facility] 02/13/2023 16:45:01 COVID-19, mRNA, LNP-S, PF, 30 mcg/0.3 mL dose 1 completed Amarilis Anastasiya null, PA - [facility] 02/13/2023 16:45:01 Influenza, split virus, trivalent, preservative 6 completed Amarilis Anastasiya null, PA - [facility] 02/13/2023 16:45:01 Influenza, split virus, trivalent, preservative 7 completed Amarilis Anastasiya null, PA - [facility] 02/13/2023 16:45:01 Td (adult), 2 Lf tetanus toxoid, preservative free, adsorbed 7 completed Amarilis [place] null, PA - [facility] 02/13/2023 16:45:01 Influenza, split virus, quadrivalent, PF 9 completed Amarilis Anastasiya null, PA - [facility] 02/13/2023 16:45:01 Past Encounters Encounter ID Performer Location Encounter Start Date Encounter Closed Date Diagnosis/Indication Diagnosis SNOMED-CT Code Diagnosis ICD10 Code Diagnosis Note [id number] [facility] [address] [place] [address] 11/30/2018 15:22:48 11/30/2018 15:59:16 [id number] [address] [address] [address] 02/18/2018 14:57:27 02/18/2018 16:32:45 [id number] Dennise Young [place] [facility] [address] [place] [address] 02/13/2023 16:25:27 02/13/2023 19:24:40 Syncope 005227749 R55 Pain of ri ght elbow joint 6231277778 5322404 M25.521 Acute exac erbation of chronic obstructive pulmonary disease 812240306 J44.1 [id number] [place] [address] [facility] [place] [address] 05/26/2023 10:27:07 05/26/2023 11:12:25 Acute exacerbation of chronic obstructive pulmonary disease 439690018 J44.1 Continue with the nebulizer treatments at [...] Guarantor Name 11/30/2018 2 [place] [id number] Francis Renteriaolasio [id number] Francis Martinez Bertolasio 02/13/2023 1 [place] [facility] Francis Renteriaolasio [id number] Francis Michelle Bertolasio 05/26/2023 1 [place] [facility] [id number] Francis Martinez Bertolasio [id number] Francis Michelle Bertolasio Notes Date Note Type [...] 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 No numbness or weakness distal to the elbow. He has some wheezing and shortness of breath from his copd and his cough is occasionally productive. Dennise Young MD [address] [place], [address], [employer] 02/13/2023 19:25:42 3 text/html CoughReported bypatient.source of [...] Shaina Herman NP [address] [place], [address], [employer] 05/26/2023 11:13:07
== END 2024-09-22 15:01 | disposition home or self-care (01) ==
LOC: HO.CT 15:00
PROVIDERS: PCP Internal Medicine Medical Oncology; Visit Provider Internal Medicine Pulmonary Disease
DX: Z12.2 Encounter for screening for malignant neoplasm of respiratory organs (principal); Z87.891 Personal history of nicotine dependence
CPT/HCPCS: 71271

== ENCOUNTER → 2024-09-22 15:01 | Outpatient (BNV) | payer BC, SELFPAY | PROVIDERS: PCP Internal Medicine Medical Oncology; Visit Provider Nuclear Medicine | DX: Z87.891 Personal history of nicotine dependence (principal) | CPT/HCPCS: 71271 ==

== ENCOUNTER 2024-09-26 13:55 | Outpatient (REF) | payer BC, SELFPAY ==
--- NOTE | 2024-09-26 13:58 | PFT_ITS ---
Flows: FEV1: 57 % of predicted at 1.93 L FVC: 91 % of predicted at 4.04 L FEV1/FVC: 48 % Bronchodilator response: Absent Volumes: Total lung capacity: 86 % of predicted at 6.19 L Residual volume: 73 % of predicted at 1.74 L Slow vital capacity: 92 % of predicted at 4.44 L Expiratory reserve volume: 65 % of predicted at 0.83 L Diffusion capacity: Mildly decreased Impression: Moderate obstructive ventilatory defect with no bronchodilator response. Decreased diffusion capacity suggests emphysema. MTDD
--- OUTSIDE RECORDS SUMMARY | 2024-09-26 16:57 | XMS_ITS | Clinical Summary ---
Author Organization [employer] Address [address] [facility] [address] [place] [address] Care Team Providers Care Residential Advisor Name Role Phone Unavailable Primary Care Provider [...] topic Insurance dr [id number] [place] [id number] [facility] C3
--- OUTSIDE RECORDS SUMMARY | 2024-09-26 16:57 | XMS_ITS | Patient Health Record ---
Author Organization [facility] Address [address] [place] [address] Care Team Providers Care Hand Edger Name Role Phone Drew Bustamante Primary Care Provider Marco Antonio Lenz [phone] Reason For Referral No Information Medications Medication [...] W/U Status Risk Notes Problem Reflux esophagitis (972130131) Reflux esophagitis (530.11) Active confirmed Problem Colon cancer screening (118331017) Colon cancer screening (V76.51) Active confirmed Problem Gastroesophageal reflux disease (810949413) GERD (gastroesophag eal reflux disease) (530.81) Active confirmed Plan Of Treatment Future Test Test Name Order Date COLONOSCOPY 03/22/2013 Insurance Providers Payer Name Payer Address Payer Phone Subscriber Number Group Number Insured Name Patient Relationship to Insured Coverage Start Date Coverage End Date [facility] [address] [address] [place], [place] [id number] YADIRA ORTIZ Self - patient is the insured Medical (General) History Medical History History ICD Code asthma hypertension GERD-had an EGD with Dr. Yobany sanchez in 01/2010-esophagitis, distal esophageal ring-dilated with a 19mm balloon, Hiatal hernia Torn rotator cuff on the right-seeing Dr Kaur Jack Denies CT,DM,CVA,renal disease Surgical History Surgery Date(Month/Year) shoulder surgery skin graft on right leg and left hand
--- OUTSIDE RECORDS SUMMARY | 2024-09-26 16:57 | XMS_ITS | Patient Health Record ---
Author Organization Marco Antonio Mchugh III, MD Address [address] [place] [address] Care Team Providers Care Chemical Strength Tester Name Role Phone Marco Antonio Mchugh Primary Care Provider Allergies Allergen (clinical drug ingredient) Drug/Non Drug Allergy documented on EMR Reaction Allergy Type Onset Date Status No Known Drug Allergy Unknown Drug Allergy Active Results Component Value Reference Range Notes Urine Culture Reviewed date:01/22/2024 06:44:59 AM Interpretation: Performing Lab:[facility], [address] [place] [phone] Notes/Report: Urine Culture No growth. Complete Blood Count Auto Di ff Reviewed date:01/15/2024 04:10:49 AM Interpretation: Performing Lab:[facility], [address] [place] [phone] Notes/Report: White Blood Count 9.9 4.8-10.8 X10*3/uL [...] Panel Reviewed date:01/15/2024 04:10:49 AM Interpretation: Performing Lab:[facility], [address] [place] [phone] Notes/Report: Bilirubin Total 0.3 0.0-1.0 mg/dL Bilirubin Direct 0.2 0.0-0.5 mg/dL Aspartate Amino Transferase 24 5-37 U/L Alanine Aminotransferase 34 0-40 U/L Total Protein 6.7 6.5-8.0 g/dL Albumin Level 4.0 3.5-5.0 g/dL Alkaline Phosphatase 73 39-117 U/L Basic Metabolic Panel Reviewed date:01/15/2024 04:10:49 AM Interpretation: Performing Lab:[facility], [address] [place] [phone] Notes/Report: Sodium 142 135-145 mmol/L Potassium 3.7 [...] Estimated Glomerular Filt Rate 45 NOTE: For -Greek individuals, multiply the result by 1.210. Chronic Kidney Disease: Estimated GFR < 60 mL/min/1.73m2 Severe Kidney Disease: Estimated GFR < 15 mL/min/1.73m2 Glucose Random 107 60-115 mg/dL Calcium 8.7 8.4-10.2 mg/dL UA CC w/rflx Micro + Cult Reviewed date:01/15/2024 04:10:49 AM Interpretation: Performing Lab:[facility], [address] [place] [phone] Notes/Report: [id number] Urine, Clean Catch Color Urine Yellow Appearance Urine Clear PH 5.5 5.0-9.0 Glucose Urine UA Negative Negative mg/dL Urine Blood Negative Negative Specific Galva - Urine 1.010 1.005-1.025 Urine Protein Negative Neg-Trace mg/dL Urine Ketones Negative Negative mg/dL Nitrite Urine Negative Negative Leukocyte Esterase Urine Negative Negative CT abdomen pelvis wo con Reviewed date:01/15/2024 04:10:49 AM Interpretation: Performing Lab: Notes/Report: [address] [address] [address] Scan Report Signed Patient: Francis Hsu MR#: [id number] : 1960 Acct:[id number] Age/Sex: 63 / M ADM Date: 01/13/24 Loc: HO.ED Attending Dr: Ordering Physician: Fariba Isbell Date of Service: 01/13/24 Procedure(s): CT abdomen pelvis wo IV con Accession Number(s): [id number] cc: Marco Antonio Mchugh MD; Fariba Isbell [...] MD in OV> 01/13/242035 DD/ 52 TD/TT: Fast Food Assistant Restaurant Manager: [address] [address] [address] Scan Report Signed Patient: Francis Hsu MR#: [id number] : 1960 Acct:[id number] Age/Sex: 63 / M ADM Date: 01/13/24 Loc: HO.ED Attending Dr: Ordering Physician: Fariba Isbell Date of Service: 01/13/24 Procedure(s): CT abd omen pelvis wo IV con Accession Number(s): [id number] cc: Marco Antonio Mchugh MD; Fariba Isbell [...] MD in OV> 01/13/242035 DD/ 52 TD/TT: Converter Operator ist: PD Blood Culture (First) (Not y et reviewed by provider) Interpretation: Performing Lab:[facility], [address] [place] [phone] Notes/Report: Blood Culture (First) No growth after 5 days. Blood Culture (Second) (Not yet reviewed by provider) Interpretation: Performing Lab:[facility], [address] [place] [phone] Notes/Report: Blood Culture (Second) No growth after 5 days. Complete Blood Count Auto Di ff Reviewed date:09/10/2024 09:05:54 AM Interpretation: Performing Lab:[facility], [address] [place] [phone] Notes/Report: White Blood Count 10.2 4.8-10.8 X10*3/uL [...] INR Reviewed date:09/10/2024 09:05:54 AM Interpretation: Performing Lab:[address] [phone] Notes/Report: Prothrombin Time 12.6 10.9-12.4 [employer] [...] Panel Reviewed date:09/10/2024 09:05:54 AM Interpretation: Performing Lab:[facility], [address] [place] [phone] Notes/Report: Bilirubin Total 0.9 0.0-1.0 mg/dL Bilirubin Direct 0.5 0.0-0.5 mg/dL Aspartate Amino Transferase 44 5-37 U/L Alanine Aminotransferase 58 0-40 U/L Total Protein 7.8 6.5-8.0 g/dL Albumin Level 4.3 3.5-5.0 g/dL Alkaline Phosphatase 78 39-117 U/L Basic Metabolic Panel Reviewed date:09/10/2024 09:05:54 AM Interpretation: Performing Lab:[address] [address] Notes/Report: Sodium 139 135-145 mmol/L Potassium 4.3 [...] Acid Reviewed date:09/10/2024 09:05:54 AM Interpretation: Performing Lab:[facility], [address] [place] [phone] Notes/Report: Lactic Acid 1.7 0.5-2.0 mmol/L Troponin-I High Sensitivity Reviewed date:09/10/2024 09:05:54 AM Interpretation: Performing Lab:[facility], [address] [place] [phone] Notes/Report: Troponin-I High Sensitivity 4.5 <3.5-35.0 ng/ L The [place] high sensitivity Troponin-I results should be used in conjunction with other diagnostic information such as ECG, clinical observations and information, and patient symptoms to aid in the diagnosis of OR. B Type Natriuretic Peptide Reviewed date:09/10/2024 09:05:54 AM Interpretation: Performing Lab:[facility], [address] [place] [phone] Notes/Report: B Type Natriuretic Peptide < 10 <100 pg/mL For those patients who are being treated with Natrecor (nesiritide, recombinant BNP), BNP testing should be performed at least two hours post treatment in order to ensure that only endogenous levels of BNP are detected. Lipase Reviewed date:09/10/2024 09:05:54 AM Interpretation: Performing Lab:[facility], [address] [place] [phone] Notes/Report: Lipase 18 8-78 U/L SARS-CoV2/FLU/RSV Reviewed date:09/10/2024 09:05:54 AM Interpretation: Performing Lab:[address] [address] Notes/Report: Influenza A PCR NEGATIVE Negative Influenza [...] by authorized laboratories. Testing performed on the [employer] GeneXpert utilizing real-time RT-PCR. All SARS CoV2 and positive influenza A/B results are reported to [facility]. XR chest 1V Reviewed date:09/10/2024 09:05:54 AM Interpretation: Performing Lab: Notes/Report: [address] [address] XRay Report Signed Patient: Francis Hsu MR#: [id number] : 1960 Acct:[id number] Age/Sex: 64 / M ADM Date: 09/07/24 Loc: .ED Attending Dr: Ordering Physician: Nolan Carbajal MD Date of Service: 09/07/24 Procedure(s): XR chest 1V Accession Number(s): [id number] cc: Marco Antonio Mchugh MD; Nolan Carbajal [...] by: Phong Matute MD 09/07/2024 09:55 AM [facility] Dictated By: Phong Matute MD Signed By: <Electronically signed by Phong Matute MD in OV> 09/07/2455 DD/ TD/TT: 09/07/24 0948 Fast Food Assistant Restaurant Manager: [address] [address] XRay Report Signed Patient: Francis Hsu MR#: [id number] : 1960 Acct:[id number] Age/Sex: 64 / M ADM Date: 09/07/24 Loc: HO.ED Attending Dr: Ordering Physician: Nolan Carbajal MD Date of Service: 09/07/24 Procedure(s): XR chest 1V Accession Number(s): [id number] cc: Marco Antonio Mchugh MD; Nolan Carbajal [...] 1V IMPRESSION: No active pulmonary disease. Electronically ranhco d by: Phong Matute MD 09/07/2024 09:55 AM EST Dictated By: Phong Alvarado MD Signed By: <[facility] signed by Phong Matute MD in OV> 09/07/2455 DD/ 0945 TD/TT: 09/07/24 0948 Fast Food Assistant Restaurant Manager: CT lung screening (Not yet r eviewed by provider) Interpretation: Performing Lab: Notes/Report: [address] [address] [address] Scan Report Signed Patient: Francis Hsu MR#: [id number] : 1960 Acct:[id number] Age/Sex: 64 / M ADM Date: 09/22/24 Loc: HO.CT Attending Dr: Toi Christensen MD Ordering Physician: Toi Christensen MD Date of Service: 09/22/24 Procedure(s): CT lung screening Accession Number(s): [id number] cc: Marco Antonio Mchugh MD; Toi Christensen MD Report Number: [id number]: Total DLP = 64.00 mGy-cm CLINICAL HISTORY: Z87.891 - Personal history of nicotine dependence CT lung cancer screening (LDCT) Comparison: CT - CHEST WITHOUT CONTRAST [address]9961 - 07/08/15 08:35 EST Technique: Axial CT images of the chest using low-dose technique. Referring provider counseled the patient on shared decision-making for LDCT screening. Additional counseling was provided on smoking cessation. Effective radiation dose total: DLP 53.5 mGycm, CTDIvol 1.7 mGy. Findings: The prior CT report is not available for review. Lung: Moderate centrilobular emphysema. Stable 5.6 mm nodule of the lingula series 6, image 96. Stable additional micro nodules. Coronary artery calcifications: None Limited upper abdomen: Unremarkable Other: None Impression: LungRADS 2 - Benign Appearance: Continue annual screening with low dose Chest CT in 12 months. ##L2# Category 1: Normal; continue annual screening Category 2: Benign appearance or behavior, continue annual screening Category 3: Probably benign, [address] recommended Category 4A: Suspicious, [address] recommended; may consider PET/CT Category 4B: Suspicious, Additional diagnostics and/or tissue sampling recommended Category 4X: Suspicious, Additional diagnostics and/or tissue sampling recommended Category 0: Recalls (incomplete screen due to Incomplete coverage, Noise, Respiratory motion, Expiration, Obscured by acute abnormality) This document has been electronically signed by: Shanthi Garcia MD on 09/25/2024 13:24:21 Dictated By: Shanthi Garcia MD Signed By: <Electronically signed by Shanthi Garcia MD in OV> 09/25/24 1325 DD/ 132 TD/TT: 09/25/24 132 Fast Food Assistant Restaurant Manager: [address] [address] [address] Scan Report Signed Patient: Francis Hsu MR#: [id number] : 1960 Acct:[id number] Age/Sex: 64 / M ADM Date: 09/22/24 Loc: HO.CT Attending Dr: Toi Christensen MD Ordering Physician: Toi Christensen MD Date of Service: 09/22/24 Procedure(s): CT claudia tang screening Accession Number(s): [id number] cc: Marco Antonio Mchugh MD; Toi Christensen MD Report Number: [id number]: Total DLP = 64.00 mGy-cm CLINICAL HISTORY: Z8 7.891 - Personal history of nicotine dependence CT lung cancer scree derek (LDCT) Comparison: CT - JOSE A [facility] WITHOUT CONTRAST [address] - 07/08/15 08:35 EST Technique: Axial CT images of t he chest using low-dose technique. Referring provider counseled the patien regina on shared decision-making for LDCT screening. Additional counselin kitty was provided on smoking cessation. Effective radiation dose total: DLP 53.5 mGycm, CTDIvol 1.7 mGy. Findings: The prior CT report is not available for review. Lung: Moderate centrilobular emphysema. Stable 5.6 mm nodule of the lingula series 6, im age 96. Stable additional micro nodules. Coronary artery calcifications: None Limited upper abdome n: Unremarkable Other: None Impression: LungRADS 2 - Benign Appearance: Continue annual screening with low dose Chest CT in 12 months. ##L2# Category 1: Normal; continue annual screening Category 2: Benign appearance or behavior, continue annual screening Category 3: Probably benign, [address] recommended Category 4A: Suspici ous, [address] recommended; may consider PET/CT Category 4B: Suspici ous, Additional diagnostics and/or tissue sampling recommended Category 4X: Suspici ous, Additional diagnostics and/or tissue sampling recommended Category 0: Recalls (incomplete screen due to Incomplete coverage, Noise, Respiratory motion, Expiration, Obscured by acute abnormality) This document has be en electronically signed by: Shanthi Garcia MD on 09/25/2024 13:24:21 Dictated By: Herminia Garcia MD Signed By: <Arianna odonnell signed by Shanthi Garcia MD in OV> 09/25/24 1325 DD/ 1324 TD/TT: 09/25/24 132 Fast Food Assistant Restaurant Manager: Reason For Referral Reason Consult and Treat Diagnosis 1 Screen for colon can cer (Z12.11) Referral Organization Marco Antonio Mchugh III, MD Referring Provider First Name Marco Antonio Referring Provider Last Name Mchugh Referring Provider Speciality Internal edicine Referred Provider [facility] er, Gastroenterology Referred Provider Specialty Gastroentero logy General Notes Felice Mora ASMA 03/08/2024 11:50:55 AM >Referral Faxed to [facility] Referral Priority Routine Reason BPH S/P TURP with Dr Rowland years ago Diagnosis 1 Benign prostatic hyp erplasia, unspecified whether lower urinary tract symptoms present (N40.0) Referral Organization Marco Antonio Mchugh III, MD Referring Provider First Name Marco Antonio Referring Provider Last Name Mchugh Referring Provider [facility] Referred Provider [facility], Urology Referred Provider Specialty Urology General Notes SHuong [facility] 05/25 03:08:18 PM >ref/demo/progress note/labs faxed [facility], Huong Dennis [facility] 05/30/2024 10:25:39 AM >ref demo progress notes x rays faxed to [facility] 2 nd time, Huong Dennis [facility] 06/01/2024 03:01:27 PM >Called Dr Barber office [...] Referring Provider Speciality Internal edicine Referred Provider [facility] er, Pulmonology Referred Provider Specialty Pulmonary Di [...] Omeprazole 20 MG TAKE 1 CAPSULE BY [facility] EVERY DAY 30 MINUTES BEFORE BREAKFAST [...] Problem Status W/U Status Risk Notes Problem 6981076 Former smoker (Z87.891) Active confirmed He seems highly motivated not to smoke and we discussed a plan to prevent relapse in times of stress or illness or tapering narcotic medication. Problem 631516300037900 Obesity (BMI 30.0-34.9) (E66.9) Active confirmed He has lost 2 pounds. His body mass index is 31. We discussed his weight loss strategies at length. He will continue losing weight. Problem 43488071 Other chronic pain (G89.29) Active confirmed He is no longer receiving narcotic medication. The pain is slightly improved. Problem 21040966 Centrilobular emphysema (J43.2) Active confirmed He had a CT scan in the past, who evaluated cough and had early centrilobular emphysema. He is now stop smoking. Problem Gastroesophageal reflux disease (647702972) Gastroesophageal reflux disease, esophagitis presence not specified (K21.9) Active confirmed He was continued on his omeprazole. Problem 217179280 Hyperplastic rectal polyp (K62.1) Active confirmed Problem 484172449 Schatzki's ring (K22.2) Active confirmed He has a history of esophageal dilatation for odynophagia from 2 Schatzki rings. He is currently asymptomatic and will be observed. Problem Benign prostatic hypertrophy without outflow obstruction (436834415) Benign prostatic hyperplasia, unspecified whether lower urinary tract symptoms present (N40.0) Active confirmed He is taking tamsulosin. He has an appointment with urology in the near future and has seen them recently. He has a history of a partial prostatectomy in the past. He has no symptoms of infection, however. We discussed lifestyle modifications at night help his nocturia. Problem 906277206 Moderate persistent asthma without complication (J45.40) Active confirmed His wheezing is allergy related and he has no wheezing recently. He will be seen in the spring to monitor this problem. Problem 70634828216211216 Rotator cuff arthropathy of left shoulder (M12.812) Active confirmed He reports no change in the status of the pain in the shoulder. He will continue on current therapy without change. Problem 04987197424903455 Rotator cuff arthropathy of right shoulder (M12.811) Active confirmed Dear has been no change in the shoulder pain. He has been able to perform activities of daily living, however. Problem 554343617 History of diplopia (Z86.69) Active confirmed Problem 460510735 Acute viral syndrome (B34.9) Active confirmed He [...] Provider Diagnosis Marco Antonio Mchugh III, MD [address] [place] [address] [place] [address] 09/28/2023 Marco Antonio Mchugh Gastroesophageal ref lux disease, esophagitis presence not specified K21.9 ; Benign prostatic hyperplasia, unspecified whether lower urinary tract symptoms present N40.0 ; Immunization, tetanus-diphtheria Z23 ; Obesity (BMI 30.0-34.9) E66.9 ; Encounter for removal of sutures Z48.02 and Former smoker Z87.891 Marco Antonio Mchugh III, MD [address] [place] [address] [place] [address] 01/17/2024 Marco Antonio Mchugh Gastroesophageal ref lux [...] 30.0-34.9) E66.9 Marco Antonio Mchugh III, MD [address] [place] [address] [place] [address] 01/19/2024 Marco Antonio Mchugh Renal colic on [...] diplopia Z86.69 Marco Antonio Mchugh III, MD [address] [place] [address] [place] [address] 05/23/2024 Marco Antonio Mchugh Gastroesophageal ref lux [...] ring K22.2 Marco Antonio Mchugh III, MD [address] [place] [address] [place] [address] 08/25/2024 Marco Antonio Mchugh Acute viral syndrome [...] 30.0-34.9) E66.9 Marco Antonio Mchugh III, MD [address] [place] [address] [place] [address] 03/02/2024 Marco Antonio Mchugh III, MD [address] [place] [address] [place] [address] 11/16/2023 Marco Antonio Mchugh III, MD [address] [place] [address] [place] [address] 01/25/2024 Marco Antonio Mchugh III, MD [address] [place] [address] [place] [address] 04/30/2024 Marco Antonio Mchugh III, MD [address] [place] [address] [place] [address] 06/27/2024 Marco Antonio Mchugh III, MD [address] [place] [address] [place] [address] 06/27/2024 Marco Antonio Mchugh Assessments Encounter Date [...] Order Date PROFILE, FASTING (COMPREHENSIVE METABOLI C) 08/29/2021 PROFILE, FASTING (COMPREHENSIVE METABOLI C) 02/11/2018 PROFILE, FASTING (COMPREHENSIVE METABOLI C) 09/28/2023 PROFILE, FASTING (COMPREHENSIVE METABOLI C) 09/18/2020 PROFILE, FASTING (COMPREHENSIVE METABOLI C) 08/08/2018 LIPID PANEL 09/18/2020 LIPID PANEL 08/08/2018 LIPID PANEL 08/29/2021 LIPID PANEL 02/11/2018 PSA, TOTAL 09/18/2020 PSA, TOTAL 08/08/2018 PSA, TOTAL 08/29/2021 PSA, TOTAL 02/11/2018 PSA, TOTAL 09/28/2023 CBC w DIFF 09/18/2020 CBC w DIFF 08/08/2018 CBC w DIFF 08/29/2021 CBC w DIFF 02/11/2018 VITAMIN D 25-OH TOTAL 09/18/2020 VITAMIN D 25-OH TOTAL 08/08/2018 CBC WITH AUTO DIFF 09/28/2023 Lipid Panel 09/28/2023 Vitamin B12 09/18/2020 Urine Dipstick 01/17/2024 CT lung screening 09/25/2024 Blood Culture (First) 09/07/2024 Blood Culture (Second) 09/07/2024 Next Appt Details Provider Name:Marco Antonio Mchugh, 01/17/2025 04:00:00 PM, [address] [facility] [address], [place], [address], Insurance Providers Payer Name Payer Address Payer Phone Subscriber Number Group Number Insured Name Patient Relationship to Insured Coverage Start Date Coverage End Date [facility] [address] [place], [place] [id number] [phone] [id number] Francis Wetzel Self - patient is the [...]
--- OUTSIDE RECORDS SUMMARY | 2024-09-26 16:57 | XMS_ITS ---
Author Organization Marco Antonio Mchugh III, MD Address [address] [address] Care Team Providers Care Plant Security Guard Name Role Phone Marco Antonio Mchugh Primary Care Provider [phone] Allergies Allergen (clinical drug ingredient) Drug/Non Drug [...] Omeprazole 20 MG TAKE 1 CAPSULE BY [facility] EVERY DAY 30 MINUTES BEFORE BREAKFAST Active [...] Problem Status W/U Status Risk Notes Problem 865014209 Acute viral syndrome (B34.9) Active confirmed He [...] Provider Diagnosis Marco Antonio Mchugh III, MD [address] [place] [address] [place] [address] 08/25/2024 Marco Antonio Mchugh Acute viral syndrome [...] Omeprazole 20 MG TAKE 1 CAPSULE BY [facility] EVERY DAY 30 MINUTES BEFORE BREAKFAST Trelegy [...] Provider Name:Marco Antonio Mchugh, 01/17/2025 04:00:00 PM, [address] [place] [address] [address], [place], [address], Progress Notes * Francis HSU FDOB: (64 yo M)Acc No.[id number]:08/25/2024 Patient:?Grupo HSU Provider:?Marco Antonio Mchugh MD :1960???Age:64 Y???Sex:Male Jorge e:08/25/2024 Address:[address] [place] [address], [place] [address], [facility] Subjective: * Chief Complaints: * ???Viral syndromeBenign [...] use:?Former smoker ???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 He has no toxic exposures. He [...] Mchugh MD Date:?01/2025 Generated for Leny thapa/Elizabeth/Gabriella on:?09/26/2024 04:57 PM EDT History and Physical Notes * HPI (History of Present Illness) Category Sub-Category Detail Notes COVID-19 Screening Questions Have you had any new onset fever, chills, cough, congestion, sore throat, shortness of breath, muscle aches?: No
--- OUTSIDE RECORDS SUMMARY | 2024-09-26 16:58 | XMS_ITS | Data Portability ---
Author Organization DIANDRA Restrepo s, [address] Address [address] [place] [address] Care Team Providers Care Senior Materials Planner Name Role Phone JOHAN AGUILA Primary Care Provider Assessment No assessment recorded. Plan of Treatment Reminders Order Date Submit Date Provider Last Modified By Organization Details Last Modified Time Details Appointments None recorded . Lab None recorded . Referral orthoped ic [facility] [address] [facility] [place], [address], 3 08:51:54 Procedures None recorded . Surgeries None recorded . Imaging XR, elbow, 3 or more view 2022 023 [email or web address] 9 [facility], [address] [facility] [place], [address], 3 19:24:41 electroc ardiogra m 2022 023 [email or web address] 9 _aarti hoffmiranda, [address] [facility], [place], [address], 3 19:24:41 XR, chest, 2 view 2022 023 [email or web address] 9 [facility], [address] [place], [address], 3 19:24:41 Medication Orders benzonat ate 100 mg capsule 2022 023 [email or web address] [id number], [address], [place], [id number], 10:46:53 doxycycl ine hyclate 100 mg capsule 2022 023 [email or web address] [facility][id number], [address] [place], [place], [phone], 10:47:02 Patient TargetsNo targets recorded. Patient Instructions Encounter Date Encounter Id Patient Instructions Last Modified By Organization Details Last Modified Time 02/13/2023 [id number] fainting: care instructions Not available 02/13/2023 19:03:03 lightheadedness or faintness: care instructions [email or web address] Not available 02/13/2023 19:03:03 chronic obstruct trinh pulmonary disease (COPD) flare-ups: care instructions [email or web address] Not available 02/13/2023 19:03:03 cough: care instructions [email or web address] Not available 02/13/2023 19:03:03 bronchitis: care instructions [email or web address] Not available 02/13/2023 19:16:12 Your EKG was abnormal but you have elected not to go to the Emergency Department for evaluation but instead follow-up with your doctor. A copy of your EKG has been provided and you should follow-up with your doctor tomorrow. You are encouraged to change your mind and go to the Emergency Department after leaving [facility]. Use your inhalers as prescribed by your [...] has been made for you - call [facility] for an appointment as soon as possible. See printed instructions and work note. Seek Emergency Medical evaluation for any worsening symptoms. [email or web address] Not available 02/13/2023 19:18:50 EKG performed fi [...] still declines to go to the ER. [email or web address] Not available 02/13/2023 18:54:05 05/26/2023 [id number] shortness of breath: care instructions Not available [...] am No observ ation record ed. MAURY [id number], [address], 02/13/2023 19:03:04 02/14/20 23 02/13/2023 XR, chest , 2 view No observ ation record ed. [email or web address] [facility] [address] [place], [address], 02/13/2023 19:14:11 02/14/20 23 02/13/2023 XR, elbow , 3 or more view No observ ation record ed. [email or web address] [facility] [address] [place], [address], 02/13/2023 19:14:11 Result Notes None recorded. Problems Name Problem SNOMED Code Status Onset Date Resolution Date Notes Provider Name and Address Organization Details Recorded Time Asthma 566560426 Active 2022 Amarilis Anastasiya null, PA - [facility] 3 16:45:30 Chronic obstructive pulmonary disease 93050503 Active 2022 Amarilis [place] null, PA - [facility] 3 16:45:34 Gastroesophage al reflux disease 021687527 Active 2022 Amarilis [place] null, PA - [facility] 3 16:45:38 [...] LastModified Time 02/13/2023 electrocardiogram completed MAURY [id number], [place], [address], 02/13/2023 19:03:04 02/13/2023 XR, chest, 2 view completed [email or web address] [facility] [address] [facility] [place], [address], 02/13/2023 19:14:11 02/13/2023 XR, elbow, 3 or more view completed [email or web address] [facility] [address] [place], [address], 02/13/2023 19:14:11 Procedure Notes None recorded. Medical [...] Address Organization Details Last Updated DateTime 3 128693. 28 g 31.4 kg/m2 180.34 cm 8 [...] Updated DateTime 3 180.34 cm 30.7 kg/m2 00304.3 2 g 92 % 92 % 83 [...] MDCK, quadrivalent, PF 0 completed Amarilis [facility]astasi[facility] null, [facility] - [facility] [...] 30 mcg/0.3 mL dose 1 completed Amarilis [place] null, PA - [facility] 02/13/2023 16:45:01 Influenza, split virus, trivalent, preservative 6 completed Amarilis Anastasiya null, PA - [facility] 02/13/2023 16:45:01 Influenza, split virus, trivalent, preservative 7 completed Amarilis Anastasiya null, PA - [facility] 02/13/2023 16:45:01 Td (adult), 2 Lf tetanus toxoid, preservative free, adsorbed 7 completed Amarilis Anastasiya null, PA - [facility] 02/13/2023 16:45:01 Influenza, split virus, quadrivalent, PF 9 completed Amarilis Anastasiya null, PA - [facility] 02/13/2023 16:45:01 Past Encounters Encounter ID Performer Location Encounter Start Date Encounter Closed Date Diagnosis/Indication Diagnosis SNOMED-CT Code Diagnosis ICD10 Code Diagnosis Note [id number] [facility] [address] [place] [address] 11/30/2018 15:22:48 11/30/2018 15:59:16 [id number] [address] [address] 02/18/2018 14:57:27 02/18/2018 16:32:45 [id number] Dennise Young [place] [facility] [address] [place] [address] 02/13/2023 16:25:27 02/13/2023 19:24:40 Syncope 961903138 R55 Pain of ri ght elbow joint 7449624464 3877528 M25.521 Acute exac erbation of chronic obstructive pulmonary disease 490631064 J44.1 [id number] [place] [address] [facility] [place] [address] 05/26/2023 10:27:07 05/26/2023 11:12:25 Acute exacerbation of chronic obstructive pulmonary disease 476630023 J44.1 Continue with the nebulizer treatments at [...] Guarantor Name 11/30/2018 2 [place] [id number] Francis Renteriaolasio [id number] Francis Martinez Bertolasio 02/13/2023 1 [place] [facility] Francis Renteriaolasio [id number] Francis Michelle Bertolasio 05/26/2023 1 [place] [facility] [id number] Francis Martinez Bertolasio [id number] Francis Michelle Bertolasio Notes Date Note [...] 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 No numbness or weakness distal to the elbow. He has some wheezing and shortness of breath from his copd and his cough is occasionally productive. Dennise Young MD [address] [place], [address], [employer] 02/13/2023 19:25:42 3 text/html CoughReported bypatient.source of [...] Shaina Herman NP [address] [place], [address], [facility] 05/26/2023 11:13:07
--- OUTSIDE RECORDS SUMMARY | 2024-09-26 16:58 | XMS_ITS ---
Author Organization Marco Antonio Mchugh III, MD Address [address] [place] [address] [place] [address] Care Team Providers Care Unit Educator Name Role Phone Marco Antonio Mchugh Primary [...] Diagnosis Marco Antonio Mchugh III, MD [address] [place] [address] [place] [address] 06/27/2024 Marco Antonio Mchugh Plan Of Treatment Medication Medication Name Sig Start Date Stop Date Notes Trelegy Ellipta 200-62.5-25 MCG/ACT 1 puff Inhalation Once a day for 30 days 06/27/2024 06/22/2025 Next Appt Details Provider Name:Marco Antonio Mchugh, 01/17/2025 04:00:00 PM, [address] [place] [address] [place], [address], Progress Notes * Francis HSU FDOB: (64 yo M)Acc No.[id number]:06/27/2024 Patient:?Grupo HSU Michelle :1960???Age:64 Y???Sex:Male Address:[address] [place] [address], [place] [address], [place], [address] * Refills? Start Trelegy Ellipta Aerosol Powder Breath Activated, 200-62.5-25 MCG/ACT, Inhalation, 1 Applicator, 1 puff, Once a day, 30 days, Refills=11 * true * Date:? Generated for Leny thapa/Elizabeth/eTsusansmitting on:?09/26/2024 04:58 PM EDT
--- OUTSIDE RECORDS SUMMARY | 2024-09-26 16:58 | XMS_ITS ---
Author Organization Marco Antonio Mchugh III, MD Address [address] [place] [address] [place] [address] Care Team Providers Care Steel Crane Operator Name Role Phone Marco Antonio Mchugh Primary Care Provider [phone] Allergies Allergen (clinical drug ingredient) Drug/Non Drug Allergy documented on EMR Reaction Allergy Type Onset Date Status No Known Drug Allergy Unknown Drug Allergy Active REASON FOR VISIT Follow up Medications Medication SIG (Take, Route, Frequency, Duration) Notes Start Date End Date Status Omeprazole 20 MG TAKE 1 CAPSULE BY [facility] EVERY DAY 30 MINUTES BEFORE BREAKFAST [...] Encounter Location Date Provider Diagnosis Marco Antonio Mcuhgh III, MD [address] [place] [address] [place] [address] 08/04/2024 Marco Antonio Mchugh Gastroesophageal ref lux [...] Provider Name:Marco Antonio Mchugh, 01/17/2025 04:00:00 PM, [address] [place] [address] [address], [place], [address], Progress Notes * Francis HSU FDOB: (64 yo M)Acc No.[id number]:08/04/2024 Progress Notes Patient:?Grupo HSU F Provider:?Marco Antonio Mchugh MD :1960???Age:64 Y???Sex:Male Jorge e:08/04/2024 Address:[address] [place], [place] [id number] Subjective: * Chief Complaints: * ???1. Follow [...] use:?Former smoker ???He is employed as a [employer]. He has no toxic exposures. He [...] Antonio Mchugh MD Date:?07/19 Generated for Leny thapa/Elizabeth/eTsusansmitting on:?09/26/2024 04:58 PM EDT History and Physical Notes * [...]
== END 2024-09-26 13:56 | disposition home or self-care (01) ==
LOC: HO.RESP 13:55
PROVIDERS: PCP Internal Medicine Medical Oncology; Visit Provider Internal Medicine Pulmonary Disease
DX: J45.909 Unspecified asthma, uncomplicated (principal)
CPT/HCPCS: 94010; 94640; 94727; 94729

== ENCOUNTER 2024-09-26 14:36 | Outpatient (AMB) | payer BC, SELFPAY ==
[2024-09-26 14:40] VITALS: BP 118/62; PULSE 90; O2SAT 92; BMI 30.1
--- NOTE | 2024-09-26 14:40 | MHC.OFFVIS ---
Vital Signs 09/26/24 14:40 Height 5 ft 11 in Weight 216 lb BMI 30.1 BP 118/62 Blood Pressure Location Lt brachial Position Sitting Pulse 90 Pulse Source Doppler Pulse Oximetry (%) 92 Oxygen Delivery Method Room Air Intake Visit Reasons: Asthma Allergies No Known Allergies Allergy (Verified 09/26/24 14:46) HPI HPI Asthma: Details: 64-year-old gentleman, former approximately 20 pack-year smoker, quit within last 10 years, with underlying history of asthma since childhood previously controlled on Trelegy, over the last few years with worsening control and multiple breakthrough episodes. Patient does have family history of asthma in his son. 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 After the last office visit patient has completed his pulmonary function test that shows underlying moderate obstructive ventilatory defect with mild decrease in diffusion capacity. He also has completed his lung cancer screening CT chest that did not show any worrisome nodules. Patient restarted on Trelegy with improvement in his symptom control. He did have a recent exacerbation treated with a prednisone pulse with essentially return to baseline. [facility] Medical History Hyperplastic rectal polyp Former smoker History of diplopia Chronic pain GERD (gastroesophageal reflux disease) Asthma BPH (benign prostatic hyperplasia) H/O urinary frequency Surgical History History of tonsillectomy History of prostate surgery Family History Brother Testicular cancer Social History Alcohol intake: former Patient Tobacco Use Status: Former Tobacco user Years Smoked: 20 Review of Systems Const Denies daytime sleepiness, Denies excessive sweating, Denies fatigue, Denies fever(s), Denies lethargy, Denies malaise, Denies night sweats, Denies snoring and Denies weight loss Eyes Denies blurry vision and Denies itchy eyes ENT Denies nasal congestion, Denies post nasal drip, Denies sinus pain, Denies sinus pressure and Denies other ( Thrush) Card Denies chest pain, Denies pedal edema, Denies dyspnea, Denies orthopnea and Denies paroxysmal nocturnal dyspnea Resp Denies cough, Denies hemoptysis, Denies excessive phlegm production, Denies dyspnea, Denies snoring and Denies wheezing GI Denies abdominal pain and Denies heartburn Musc Denies myalgias, Denies arthralgias and Denies joint swelling Skin/Breast Denies rash Neuro Denies memory loss and Denies seizure-like activity Psych Denies abnormal sleep pattern, Denies anxiety and Denies memory loss Endo Denies excessive sweating, Denies fatigue and Denies heat intolerance Etienne/Lymph Denies easy bruising Aller/Immun Denies itchy eyes, Denies seasonal rhinorrhea and Denies wheezing Physical Exam Vital Signs: Last Vital Signs Pulse 90 09/26/24 14:40 BP 118/62 09/26/24 14:40 Pulse Ox 92 09/26/24 14:40 Oxygen Delivery Method Room Air 09/26/24 14:40 BMI result Body Mass Index 30.1 Const General: no acute distress and alert Nutritional Appearance: not obese Orientation/consciousness: Other orientation findings ( oriented) HEENT Head: Yes atraumatic Eyes General: appearance normal, both eyes and all related structures Sclerae: sclerae normal EOM: EOMs intact bilaterally Neck Neck: Yes supple Lymphatic: no lymphadenopathy noted Resp Effort & Inspection: normal respiratory effort and no use of accessory muscles Auscultation: clear to auscultation bilaterally Cardio Rate: regular rate Rhythm: regular rhythm Heart sounds: no gallops, no murmurs and no rubs Skin General skin exam: other ( warm) Extrem General: No clubbing, No cyanosis and No edema Assessment & Plan Assessment & Plan (1) Asthma-COPD overlap syndrome: Code(s): J44.89 - Other specified chronic obstructive pulmonary disease Category: Medical Plan: Improved control on Trelegy and albuterol MDI. Continue current regimen. Results of pulmonary function test reviewed, underlying moderate obstructive ventilatory defect with mild decrease in diffusion capacity. (2) Environmental allergies: Code(s): Z91.09 - Other allergy status, other than to drugs and biological substances Category: Medical Plan: Immunologic workup is pending. (3) Personal history of nicotine dependence: Code(s): Z87.891 - Personal history of nicotine dependence Category: Medical Plan: Results of lung cancer screening CT chest reviewed, no worrisome nodules noted. Continue with yearly screening, next in September of 2025. Coding Level of Care Code Est Pt Level 4 (61435) Diagnoses Asthma-COPD overlap syndrome J44.89 Environmental allergies Z91.09 Personal history of nicotine dependence Z87.891
--- OUTSIDE RECORDS SUMMARY | 2024-09-26 17:54 | XMS_ITS | Clinical Summary ---
Author Organization [employer] Address [address] [facility] [address] [place] [address] Care Team Providers Care End Finder Twisting Department Name Role Phone Unavailable Primary Care Provider [...] topic Insurance dr [id number] [place] [id number] [facility] C3
== END 2024-09-26 14:57 | disposition home or self-care (01) ==
LOC: HO.HPS 14:37
PROVIDERS: PCP Internal Medicine Medical Oncology; Visit Provider Internal Medicine Pulmonary Disease
DX: J44.89 Other specified chronic obstructive pulmonary disease (principal); Z91.09 Other allergy status, other than to drugs and biological substances; Z87.891 Personal history of nicotine dependence
CPT/HCPCS: 99214

== ENCOUNTER 2024-11-13 05:27 | Inpatient (IN) | payer BC, SELFPAY ==
[2024-11-13] VITALS (13 sets, daily range): BP systolic 103–125; BP diastolic 66–81; PULSE 81–107; RESP 18–24; TEMP 36.6–37.2; O2SAT 88–95; BMI 27.9
--- NOTE | 2024-11-13 | ECG_ITS ---
Test Reason : asthma Blood Pressure : */* mmHG Vent. Rate : 82 BPM Atrial Rate : 82 BPM P-R Int : 150 ms QRS Dur : 68 ms QT Int : 366 ms P-R-T Axes : 64 -35 39 degrees QTcB Int : 427 ms Normal sinus rhythm Left axis deviation Septal infarct , age undetermined Abnormal ECG When compared with ECG of 07-Sep-2024 10:09, Septal infarct is now Present Referred By: Generic ED Physician Electronically Signed By: Maxi Dowling
--- NOTE | ~2024-11-13 | XR_ITS ---
CLINICAL HISTORY: sob 1 view chest x-ray Comparison: 09/07/2024 Findings: The lungs are clear. Normal size heart. Left proximal humerus suture anchor. No acute fracture. IMPRESSION: 1. No acute findings. This document has been electronically signed by: Dinorah Velasco MD on 11/13/2024 06:46:51
[2024-11-13] MEDS: Albuterol Sulfate 7.5 MG, Albuterol Sulfate (0.083%) 2.5 MG 10 MG INHALE ×2 (05:44→06:10)
[2024-11-13 05:46] LABS: Basophils Absolute Auto 0.1 X10*3/uL (0.0-0.2); Basophils Percent Auto 1.1 % (0-2); Eosinophils Absolute Auto 0.5 X10*3/uL (0.0-0.4); Eosinophils Percent Auto 6.6 % (0-4); Hematocrit 50.8 % (42.0-52.0); Hemoglobin 17.2 g/dl (14.0-18.0); Imm Gran Abs Auto 0.04 X10*3/uL (0.00-0.03); Imm Gran Pct Auto 0.5 % (0.0-0.4); Lymphocytes Absolute Auto 1.7 X10*3/uL (1.2-4.9); Lymphocytes Percent Auto 20.3 % (20-40); MANUAL DIFF FLAG NO; Mean Corpuscular HGB Conc 33.9 g/dl (31.0-36.0); Mean Corpuscular Hemoglobin 31.2 pg (27.0-33.0); Mean Corpuscular Volume 92.2 fL (80.0-98.0); Mean Platelet Volume 9.9 fL (9.4-12.4); Monocytes Absolute Auto 0.7 X10*3/uL (0.1-1.2); Neutrophils Absolute Auto 5.2 x10*3/uL (2.0-8.3); Neutrophils Percent Auto 62.5 % (45-73); Platelet Count 184 X10*3/uL (160-400); Red Blood Count 5.51 X10*6/uL (4.60-5.80); Red Cell Distribution Width 13.7 % (11.0-16.0); White Blood Count 8.2 X10*3/uL (4.8-10.8)
--- NOTE | 2024-11-13 05:46 | ED_ITS ---
HPI - SOB/Dyspnea General Chief Complaint: Dyspnea Stated Complaint: SOB Time Seen by Provider: 11/13/24 05:45 Source: patient Mode of arrival: ambulatory Limitations: no limitations History of Present Illness ED Provider: Related Data Home Medications ?Medication ?Instructions ?Recorded ?Confirmed albuterol sulfate 90 mcg/actuation 2 puff inhalation Q6H PRN 08/18/24 aerosol inhaler (Ventolin HFA) Previous Rx's ?Medication ?Instructions ?Recorded tamsulosin 0.4 mg capsule 0.4 mg PO BEDTIME kidney stone 14 01/28/24 days #14 caps fluticasone fur. 200 mcg-umeclid 1 inh inhalation DAILY #1 ea 08/18/24 62.5 mcg-vilant 25 mcg inhalat.powder (Trelegy Ellipta) Allergies Allergy/AdvReac Type Severity Reaction Status Date / Time No Known Allergies Allergy Verified 11/13/24 05:35 PMFSH Past Medical History Medical History Hyperplastic rectal polyp Former smoker History of diplopia Chronic pain GERD (gastroesophageal reflux disease) Asthma BPH (benign prostatic hyperplasia) H/O urinary frequency Surgical History History of tonsillectomy History of prostate surgery Family History Family History Brother Testicular cancer Social History Social History Alcohol intake: former Patient Tobacco Use Status: Former Tobacco user Years Smoked: 20 Advance Directives: No Advance Directives Information Provided: Yes Physical Exam 2 Vital Signs: Vital Signs: Last Vital Signs Temp 97.9 F 11/13/24 05:34 Pulse 89 11/13/24 05:45 Resp 18 11/13/24 05:45 BP 115/69 11/13/24 05:34 Pulse Ox 89 L 11/13/24 05:34 O2 Del Method Room Air 11/13/24 05:34 BMI result Body Mass Index 27.9 Medications Administered Discontinued Medications Generic Name Dose Route Start Last Admin Trade Name Freq PRN Reason Stop Dose Admin Albuterol Sulfate 7.5 mg/ 10 mg 11/13/24 05:42 11/13/24 05:44 Albuterol Sulfate 2.5 mg INHALE 11/13/24 05:43 10 mg ONCE ONE Administration Medical Decision Making Lab Data 11/13/24 05:42 11/13/24 05:42 Discharge Plan Discharge Prescriptions: No Action tamsulosin 0.4 mg capsule 0.4 mg PO BEDTIME 14 Days Qty: 14 0RF albuterol sulfate [Ventolin HFA] 90 mcg/actuation HFA aerosol inhaler 2 puff inhalation Q6H PRN Trelegy Ellipta 200-62.5-25 mcg blister with device 1 inh inhalation DAILY Qty: 1 6RF Print Language: Sierra Leonean
[2024-11-13 06:09] LABS: Troponin-I High Sensitivity 5.2 ng/L (<3.5-35.0)
[2024-11-13] MEDS: Magnesium Sulfate/H2O 2 GM/50 ML PIGGYBACK IV (06:09)
[2024-11-13] MEDS: methylPREDNISolone Sod Succ 125 MG/2 ML VIAL IVPUSH (06:09)
[2024-11-13 06:10] LABS: Alanine Aminotransferase 35 U/L (0-40); Alkaline Phosphatase 68 U/L (39-117); Anion Gap 16 (12-20); Aspartate Amino Transferase 27 U/L (5-37); Bilirubin Total 0.6 mg/dL (0.0-1.0); Blood Urea Nitrogen 18 mg/dL (9-16); Carbon Dioxide 22 mmol/L (22-29); Chloride 107 mmol/L (96-108); Creatinine Clr Calc Pharmacy 70.1; Estimated Glomerular Filt Rate > 60; Glucose Random 105 mg/dL (60-115); Sodium 141 mmol/L (135-145); Total Protein 6.8 g/dL (6.5-8.0)
[2024-11-13 06:22] LABS: Influenza A PCR NEGATIVE (Negative); Influenza B PCR NEGATIVE (Negative); Resp Syncy Virus RNA Qual PCR NEGATIVE (Negative); SARS COV2 PCR INHOUSE NEGATIVE (Negative)
[2024-11-13] MEDS: levalbuterol HCL 3.75 MG, Ipratropium Bromide 0.5 MG INHALE (08:48)
--- NOTE | 2024-11-13 08:49 | ED.SOB ---
HPI - SOB/Dyspnea General Chief Complaint: Dyspnea Stated Complaint: SOB Time Seen by Provider: 11/13/24 05:45 Source: patient, RN notes reviewed and old records reviewed Mode of arrival: ambulatory History of Present Illness ED Provider: Bailey Hui PA-C HPI Narrative: 64-year-old male with a past medical history GERD, asthma, BPH, presenting to the ED complaining of productive cough of clear phlegm and SOB x3 days. Has been using home nebulizer without relief. Denies fever, chills, chest pain, abdominal pain, pedal edema, recent travel, sick contacts. Related Data Home Medications ?Medication ?Instructions ?Recorded ?Confirmed albuterol sulfate 90 mcg/actuation 2 puff inhalation Q6H PRN Wheezing 08/18/24 11/13/24 aerosol inhaler (Ventolin HFA) omeprazole 20 mg capsule,delayed 20 mg PO DAILY@0630 11/13/24 11/13/24 release Previous Rx's ?Medication ?Instructions ?Recorded fluticasone fur. 200 mcg-umeclid 1 inh inhalation DAILY #1 ea 08/18/24 62.5 mcg-vilant 25 mcg inhalat.powder (Trelegy Ellipta) Allergies Allergy/AdvReac Type Severity Reaction Status Date / Time No Known Allergies Allergy Verified 11/13/24 05:35 Review of Systems Review of Systems: Yes all other systems are reviewed and are negative Constitutional: Constitutional: Reports as per [facility] Past Medical History Attestation statement: The following information was validated with the patient. Source: old records reviewed Medical History Hyperplastic rectal polyp Former smoker History of diplopia Chronic pain GERD (gastroesophageal reflux disease) Asthma BPH (benign prostatic hyperplasia) H/O urinary frequency Surgical History History of tonsillectomy History of prostate surgery Family History Family History Brother Testicular cancer Social History Social History Household Members: None Housing: Other Housing Other:: trailor Do you presently have visiting nurse or other home services: No Alcohol intake: former Patient Tobacco Use Status: Former Tobacco user Years Smoked: 20 Physical Exam Vital Signs: Vital Signs: Last Vital Signs Temp 98.7 F 11/13/24 15:12 Pulse 102 H 11/13/24 15:26 Resp 19 11/13/24 15:26 BP 125/71 11/13/24 15:12 Pulse Ox 92 11/13/24 15:12 O2 Del Method Nasal Cannula 11/13/24 15:12 O2 Flow Rate 4 11/13/24 15:12 BMI result Body Mass Index 27.9 Const: General: cooperative, healthy appearing and no acute distress Orientation/consciousness: patient oriented x3 Limitations: no limitations HEENT: Head: Yes normal to inspection and Yes atraumatic Ears: hearing grossly normal bilaterally General nose exam: Normal external nose present Face and sinus: Yes normal facial exam Eyes: General: appearance normal, both eyes and all related structures EOM: EOMs intact bilaterally Neck: Neck: Yes normal visual inspection and Yes no meningeal signs Resp: Effort & Inspection: normal respiratory effort and no respiratory distress Auscultation: wheezes expiratory wheezes and throughout and diminished lung sounds diffuse Cardio: Rate: regular rate Heart sounds: S1 normal heart sound present and S2 normal heart sound present GI: Inspection: Yes normal to inspection Palpation (GI): Soft to palpation, nontender, no guarding and not rigid : General: Yes no CVA tenderness Back/Spine/Pelvis: Back: no CVA tenderness Skin: Rashes: no rashes Wounds: no wounds Neuro: General: patient oriented x3, tone normal and no meningeal signs Cranial nerves: Yes CN's II-XII intact bilaterally Gait exam (Neuro): Normal gait present Extrem: General: Yes normal to inspection, Yes no pedal edema and Yes no calf tenderness Course Course Course Narrative: -9161--labs reassuring. Initial troponin 5.2 > will obtain repeat -viral testing negative -CXR unremarkable > on re-evaluation after IV Solu-Medrol, IV magnesium & 2 DuoNebs patient is still with diminished lung sounds throughout, expiratory wheeze and hypoxia. Plan for admission Medications Administered Generic Name Dose Route Start Last Admin Trade Name Freq PRN Reason Stop Dose Admin Albuterol/Ipratropium 3 ml 11/13/24 12:00 11/13/24 15:24 Albuterol/Iprat 2.5/0.5mg 3 Ml Ampul.Neb INHALE 3 ml RQ4H WHILE AWAKE MORENA Administration Azithromycin 500 mg 11/13/24 09:00 11/13/24 10:00 Azithromycin 500 Mg Tablet PO 500 mg Q24H MORENA Administration Methylprednisolone Sodium Succinate 40 mg 11/13/24 18:00 11/13/24 17:31 Methylprednisolone Sod Succ 40 Mg/Ml Vial IVPUSH 40 mg Q12H MORENA Administration Sodium Chloride 3 ml 11/13/24 16:00 11/13/24 15:37 0.9 % Sodium Chloride Flush 3 Ml Syringe IVFLUSH 3 ml QSHIFT MORENA Administration Discontinued Medications Generic Name Dose Route Start Last Admin Trade Name Freq PRN Reason Stop Dose Admin Albuterol Sulfate 7.5 mg/ 10 mg 11/13/24 05:42 11/13/24 05:44 Albuterol Sulfate 2.5 mg INHALE 11/13/24 05:43 10 mg ONCE ONE Administration Albuterol Sulfate 7.5 mg/ 10 mg 11/13/24 06:09 11/13/24 06:10 Albuterol Sulfate 2.5 mg INHALE 11/13/24 06:10 10 mg ONCE ONE Administration Levalbuterol HCl 3.75 mg/ 0 mg 11/13/24 08:45 11/13/24 08:48 Ipratropium [place] 0.5 mg INHALE 11/13/24 08:46 1 dose ONCE ONE Administration Magnesium Sulfate 2 gm in 50 mls @ 150 mls/hr 11/13/24 06:04 11/13/24 06:35 Magnesium Sulfate/H2o IV 11/13/24 06:23 Infused ONCE ONE Infusion Methylprednisolone Sodium Succinate 125 mg 11/13/24 06:04 11/13/24 06:09 Methylprednisolone Sod Succ 125 Mg/2 Ml Vial IVPUSH 11/13/24 06:05 125 mg ONCE ONE Administration Medical Decision Making Medical Decision Making MDM Narrative: 64-year-old male with a past medical history GERD, asthma, BPH, presenting to the ED complaining of productive cough of clear phlegm and SOB x3 days. On exam tachypneic, hypoxic to 90% on 5 L NC, diffuse expiratory wheeze and diminished lung sounds throughout. Concern for COPD exacerbation. Lower suspicion for acute ACS, DVT/PE or dissection at this time Plan: EKG, labs, CXR, viral testing, ED bronch protocol, IV Solu-Medrol, IV magnesium, admission Please refer to course for remaining clinical decision making, interpretation of labs/imaging results, and discussions with consultants and/or family members. Differential Diagnosis Differential Diagnoses: The differential diagnosis associated with the presentation includes As above Admission/Observation Consideration of admission/observation: Escalation of care including admission/observation considered Consult Healthcare Provider Management of the patient was discussed with: Hospitalist Lab Data MDM Lab Attestation statement: I reviewed the patient's lab results. 11/13/24 05:42 11/13/24 05:42 Labs: Lab Results 11/13/24 11/13/24 11/13/24 Range/Units 05:38 05:42 08:25 WBC 8.2 (4.8-10.8) X10*3/uL RBC 5.51 (4.60-5.80) X10*6/uL Hgb 17.2 (14.0-18.0) g/dl Hct 50.8 (42.0-52.0) % MCV 92.2 (80.0-98.0) fL MCH 31.2 (27.0-33.0) pg MCHC 33.9 (31.0-36.0) g/dl RDW 13.7 (11.0-16.0) % Plt Count 184 (160-400) X10*3/uL MPV 9.9 (9.4-12.4) fL Immature Gran % (Auto) 0.5 H (0.0-0.4) % Neut % (Auto) 62.5 (45-73) % Lymph % (Auto) 20.3 (20-40) % [place] % (Auto) 9.0 (2-11) % Eos % (Auto) 6.6 H (0-4) % Baso % (Auto) 1.1 (0-2) % Lymph # (Auto) 1.7 (1.2-4.9) X10*3/uL [place] # (Auto) 0.7 (0.1-1.2) X10*3/uL Eos # (Auto) 0.5 H (0.0-0.4) X10*3/uL Baso # (Auto) 0.1 (0.0-0.2) X10*3/uL Abs Immat Gran (auto) 0.04 H (0.00-0.03) X10*3/uL Absolute Neuts (auto) 5.2 (2.0-8.3) x10*3/uL Absolute Nucleated RBC 0.000 (0.0-0.012) X10*3/uL Nucleated RBC % (auto) 0.0 (0.0-0.2) /100WBC Sodium 141 (135-145) mmol/L Potassium 4.0 (3.3-5.1) mmol/L Chloride 107 (96-108) mmol/L Carbon Dioxide 22 (22-29) mmol/L Anion Gap 16 (12-20) BUN 18 H (9-16) mg/dL Creatinine 1.21 (0.5-1.4) mg/dL Estim Creat Clear Calc 70.1 Estimated GFR > 60 Random Glucose 105 (60-115) mg/dL Calcium 9.0 (8.4-10.2) mg/dL Total Bilirubin 0.6 (0.0-1.0) mg/dL AST 27 (5-37) U/L ALT 35 (0-40) U/L Alkaline Phosphatase 68 (39-117) U/L Troponin I High Sens 5.2 3.0 (<3.5-35.0) ng/L B-Natriuretic Peptide < 10 (<100) pg/mL Total Protein 6.8 (6.5-8.0) g/dL Albumin 4.0 (3.5-5.0) g/dL Influenza Type A (PCR) NEGATIVE (Negative) Influenza Type B (PCR) NEGATIVE (Negative) RSV RNA Qual (PCR) NEGATIVE (Negative) SARS-CoV-2 RNA (RT-PCR) NEGATIVE (Negative) Independent Interpretation I performed an independent interpretation of an: EKG (My interpretation EKG normal sinus rhythm rate of 82. ND interval 150. QTC 427. Septal infarct now present when compared to prior ) and Plain X-Ray Radiology Impression Discussion of test interpretation with radiology: I have reviewed the radiologist's reading. External Record Review External record reviewed: Inpatient record, Office record, Outpatient record, Prior outpatient labs, Prior outpatient radiology, Primary care record and Outside ED record Tests considered The following testing was considered but not selected: As above Prescription Management I considered prescription management with: Pain Medication and Other Chronic Conditions Patient?s care impacted by: Other (COPD) Social Determinants Patient?s care significantly limited by Social Determinants of Health including: Other Social Determinant of Health Critical Care Time Critical Care Time Critical Care Time: Yes Total Critical Care Time: 45 Attestation: I have personally provided critical care time exclusive of time spent on separately billable procedures. Time includes review of lab data, radiology results, discussion with consultants, and monitoring for potential decompensation. Intervention performed as documented. Discharge Plan Discharge Clinical Impression: COPD exacerbation Patient Disposition: Admitted As Inpatient Interventions: Admission Worksheet (ED) Last Done: 11/13/24 10:29 Discharge Date/Time: 11/13/24 14:30
--- NOTE | 2024-11-13 09:04 | P.HPHOSP_ITS ---
History of Present Illness Date of Service: 11/13/24 Chief Complaint: sob 64M PMH COPD, GERD, BPH, presented with SOB. symptoms began about 2 days prior to presentation. sob, wheezing, cough with small amounts of clear sputum, denies fever, chills, chest pain, n/v/d, sick contacts. in ED noted to be hypoxic requiring 4L oxygen to maintain sats. cxr unremarkable. some relief with neb. Review of Systems 2 Review of Systems: Yes all other systems are reviewed and are negative [facility] Medical History Hyperplastic rectal polyp Former smoker History of diplopia Chronic pain GERD (gastroesophageal reflux disease) Asthma BPH (benign prostatic hyperplasia) H/O urinary frequency Family History Brother Testicular cancer Surgical History History of tonsillectomy History of prostate surgery Social History Alcohol intake: former Patient Tobacco Use Status: Former Tobacco user Years Smoked: 20 Advance Directives: No Advance Directives Information Provided: Yes Meds Allergies Allergy/AdvReac Type Severity Reaction Status Date / Time No Known Allergies Allergy Verified 11/13/24 05:35 Active Medications: Current Medications Acetaminophen (Acetaminophen 325 Mg Tablet) 650 mg PO Q6H PRN PRN Reason: Pain, Mild 1-3,fever,headache Albuterol/Ipratropium (Albuterol/Iprat 2.5/0.5mg 3 Ml Ampul.Neb) 3 ml INHALE RQ4H WHILE AWAKE [facility] Azithromycin (Azithromycin 500 Mg Tablet) 500 mg PO Q24H [facility] Calcium Carbonate (Calcium Carbonate 750 Mg Tab.Chew) 750 mg PO Q4H PRN PRN Reason: Heartburn Enoxaparin Sodium (Enoxaparin Sodium 40 Mg/0.4 Ml Syringe) 40 mg SUBCUT Q24H [facility] Magnesium Hydroxide (Milk Of Magnesia 30 Ml Oral.Susp) 30 ml PO DAILY PRN PRN Reason: Constipation Melatonin (Melatonin 3 Mg Tablet) 6 mg PO BEDTIME PRN PRN Reason: Insomnia Methylprednisolone Sodium Succinate (Methylprednisolone Sod Succ 40 Mg/Ml Vial) 40 mg IVPUSH Q12H [facility] Sodium Chloride (0.9 % Sodium Chloride Flush 3 Ml Syringe) 3 ml IVFLUSH QSHIFT [facility] Home Medications ?Medication ?Instructions ?Recorded ?Confirmed ?Last Taken ?Type albuterol sulfate 90 mcg/actuation 2 puff inhalation Q6H PRN 08/18/24 Unknown History aerosol inhaler (Ventolin HFA) Physical Exam 2 Vital Signs and Narrative: Vital Signs: Last Vital Signs Temp 98.3 F 11/13/24 05:49 Pulse 91 11/13/24 08:49 Resp 20 11/13/24 08:49 BP 124/79 11/13/24 08:20 Pulse Ox 91 L 11/13/24 08:20 O2 Del Method Nasal Cannula 11/13/24 08:20 O2 Flow Rate 5 11/13/24 08:20 BMI result Body Mass Index 27.9 General: AO X 3, dyspneic Resp: wheezing bilateral, mild accessory muscles used CVS: S1,S2,RRR GI: soft, non tender, non distended Neuro: motor grossly intact, alert Psych: appropriate affect, appropriate insight Results Labs 11/13/24 05:42 11/13/24 05:42 Labs: Laboratory Results - last 24 hr 11/13/24 11/13/24 05:38 05:42 MCV 92.2 MCH 31.2 MCHC 33.9 RDW 13.7 Plt Count 184 MPV 9.9 Immature Gran % (Auto) 0.5 H Neut % (Auto) 62.5 Lymph % (Auto) 20.3 Towner % (Auto) 9.0 Eos % (Auto) 6.6 H Baso % (Auto) 1.1 Lymph # (Auto) 1.7 Towner # (Auto) 0.7 Eos # (Auto) 0.5 H Baso # (Auto) 0.1 Abs Immat Gran (auto) 0.04 H Absolute Neuts (auto) 5.2 Absolute Nucleated RBC 0.000 Nucleated RBC % (auto) 0.0 Anion Gap 16 Estim Creat Clear Calc 70.1 Estimated GFR > 60 Random Glucose 105 Calcium 9.0 Total Bilirubin 0.6 AST 27 ALT 35 Alkaline Phosphatase 68 Total Protein 6.8 Albumin 4.0 Influenza Type A (PCR) NEGATIVE Influenza Type B (PCR) NEGATIVE RSV RNA Qual (PCR) NEGATIVE SARS-CoV-2 RNA (RT-PCR) NEGATIVE Assessment and Plan (1) COPD exacerbation: Status: Acute Plan 4M PMH COPD, GERD, BPH, presented with SOB acute hypoxic respiratory failure due to copd with acute decompensation no sepsis, tachycardia due to nebs steroids, nebs, azithro, wean o2 gerd ppi bph no longer on meds dvt prophylaxis - lovenox full code due to resp distress, hypoxia, expected to require atleast 2 midnights inpatient Quality Stroke Does the patient have a stroke diagnosis?: No VTE Prior VTE?: No VTE Risk Level:: Medical - moderate - high VTE Device Contraindication: Treatment Not Indicated VTE Drug Contraindication: N/A - Med Ordered
[2024-11-13 09:17] LABS: B Type Natriuretic Peptide < 10 pg/mL (<100)
--- NOTE | 2024-11-13 09:24 | PHA.MEDREC ---
Pharmacy Consult ? Medication Reconciliation Pharmacy has completed the medication reconciliation. Spoke to patient at bedside, he confirms he no longer takes tamsulosin. Now only takes his Albuterol inhaler, Trelegy ellipta, and Omeprazole 20mg Daily.
[2024-11-13] MEDS: Azithromycin 500 MG TABLET PO (10:00)
--- NOTE | 2024-11-13 10:06 | PC.NURSE ---
this RN resumed care of pt at 0845. pt presents w/ increased sob w/ productive cough (clear sputum) x 2 days. denies fever/chills/sick contacts. hx asthma/copd. during assessment, pt a&ox4. vss and up to date aside from remaining tachycardic s/p breathing tx via RT. denies chest pain/palpitations. pt currently remains on 5L via NC. sitting upright to promote patent airway. speaking full/clear sentences. no sob/wob noted. respirations even/unlabored. medication administered per provider order. pt currently pending bed assignment. plan of care ongoing. call echols placed within reach.
[2024-11-13] MEDS: Albuterol/Iprat 2.5/0.5MG 3 ML AMPUL.NEB INHALE ×3 (11:33→18:37)
--- NOTE | 2024-11-13 12:16 | PC.NURSE ---
Assumed care of this patient upon transfer to Overflow unit. Patient resting quietly in bed, VSS. On 5L O2 sats WNL. Patient awaiting bed assignment at this time.
[2024-11-13] MEDS: 0.9 % Sodium Chloride Flush 3 ML SYRINGE IVFLUSH ×2 (15:37→20:14)
[2024-11-13] MEDS: methylPREDNISolone Sod Succ 40 MG/ML VIAL IVPUSH (17:31)
[2024-11-14 03:08] VITALS: BP 123/70; PULSE 90; RESP 20; TEMP 36.6; O2SAT 93
[2024-11-14 05:31] LABS: Hematocrit 47.3 % (42.0-52.0); Hemoglobin 16.2 g/dl (14.0-18.0); Mean Corpuscular HGB Conc 34.2 g/dl (31.0-36.0); Mean Corpuscular Hemoglobin 31.7 pg (27.0-33.0); Mean Corpuscular Volume 92.6 fL (80.0-98.0); Mean Platelet Volume 9.8 fL (9.4-12.4); Platelet Count 187 X10*3/uL (160-400); Red Blood Count 5.11 X10*6/uL (4.60-5.80); Red Cell Distribution Width 13.7 % (11.0-16.0); White Blood Count 19.7 X10*3/uL (4.8-10.8)
[2024-11-14 05:32] LABS: Venous Blood Gas Refer to POC result
[2024-11-14 05:36] LABS: VBG Base Excess 0.9 mmol/L; VBG HCO3 26 mmol/L (22-26); VBG pCO2 42 mmHg; VBG pH 7.39 (7.32-7.43); VBG pO2 64 mmHg
[2024-11-14 05:55] LABS: Alanine Aminotransferase 42 U/L (0-40); Albumin Level 3.9 g/dL (3.5-5.0); Alkaline Phosphatase 75 U/L (39-117); Anion Gap 13 (12-20); Aspartate Amino Transferase 22 U/L (5-37); Bilirubin Direct 0.2 mg/dL (0.0-0.5); Bilirubin Total 0.3 mg/dL (0.0-1.0); Blood Urea Nitrogen 16 mg/dL (9-16); Calcium 8.9 mg/dL (8.4-10.2); Carbon Dioxide 24 mmol/L (22-29); Chloride 109 mmol/L (96-108); Creatinine Clr Calc Pharmacy 77.8; Estimated Glomerular Filt Rate > 60; Glucose Random 119 mg/dL (60-115); Magnesium 2.5 mg/dL (1.6-2.6); Potassium 4.1 mmol/L (3.3-5.1); Sodium 142 mmol/L (135-145); Total Protein 6.5 g/dL (6.5-8.0)
[2024-11-14] MEDS: methylPREDNISolone Sod Succ 40 MG/ML VIAL IVPUSH (06:01)
[2024-11-14] MEDS: Omeprazole 20 MG CAPSULE.DR PO (06:02)
[2024-11-14 07:44] VITALS: BP 137/90; PULSE 89; RESP 18; TEMP 36.8; O2SAT 95
[2024-11-14] MEDS: 0.9 % Sodium Chloride Flush 3 ML SYRINGE IVFLUSH (08:05)
[2024-11-14] MEDS: Enoxaparin Sodium 40 MG/0.4 ML SYRINGE SUBCUT (08:06)
[2024-11-14] MEDS: Azithromycin 500 MG TABLET PO (08:06)
[2024-11-14] MEDS: Albuterol/Iprat 2.5/0.5MG 3 ML AMPUL.NEB INHALE ×2 (08:16→11:36)
[2024-11-14 08:17] VITALS: O2SAT 89; O2SAT 91
[2024-11-14 08:21] VITALS: PULSE 88; RESP 18; O2SAT 91
--- NOTE | 2024-11-14 08:54 | P.PNIM_ITS ---
Subjective Subjective Date of Service: 11/14/24 Interval History: feels better Physical Exam 2 Vital Signs: Vital Signs: Last Vital Signs Temp 98.3 F 11/14/24 07:44 Pulse 88 11/14/24 08:21 Resp 18 11/14/24 08:21 BP 137/90 H 11/14/24 07:44 Pulse Ox 91 L 11/14/24 08:17 O2 Del Method Nasal Cannula 11/14/24 08:17 O2 Flow Rate 3 11/14/24 08:17 BMI result Body Mass Index 27.9 Lungs diminished, no further wheezing Objective Data Active Medications Acetaminophen (Acetaminophen 325 Mg Tablet) 650 mg PO Q6H PRN PRN Reason: Pain, Mild 1-3,fever,headache Albuterol/Ipratropium (Albuterol/Iprat 2.5/0.5mg 3 Ml Ampul.Neb) 3 ml INHALE RQ4H WHILE AWAKE [facility] Last Admin: 11/14/24 08:16 Dose: 3 ml Documented By: OLVIN Azithromycin (Azithromycin 500 Mg Tablet) 500 mg PO Q24H [facility] Last Admin: 11/14/24 08:06 Dose: 500 mg Documented By: REGINA Calcium Carbonate (Calcium Carbonate 750 Mg Tab.Chew) 750 mg PO Q4H PRN PRN Reason: Heartburn Enoxaparin Sodium (Enoxaparin Sodium 40 Mg/0.4 Ml Syringe) 40 mg SUBCUT Q24H [facility] Last Admin: 11/14/24 08:06 Dose: 40 mg Documented By: REGINA Magnesium Hydroxide (Milk Of Magnesia 30 Ml Oral.Susp) 30 ml PO DAILY PRN PRN Reason: Constipation Melatonin (Melatonin 3 Mg Tablet) 6 mg PO BEDTIME PRN PRN Reason: Insomnia Methylprednisolone Sodium Succinate (Methylprednisolone Sod Succ 40 Mg/Ml Vial) 40 mg IVPUSH Q12H [facility] Last Admin: 11/14/24 06:01 Dose: 40 mg Documented By: RADHIKA Omeprazole (Omeprazole 20 Mg Capsule.Dr) 20 mg PO DAILY@0630 [facility] Last Admin: 11/14/24 06:02 Dose: 20 mg Documented By: RADHIKA Sodium Chloride (0.9 % Sodium Chloride Flush 3 Ml Syringe) 3 ml IVFLUSH QSHIFT [facility] Last Admin: 11/14/24 08:05 Dose: 3 ml Documented By: REGINA Labs 11/14/24 05:17 11/14/24 05:17 Labs: Laboratory Results - last 24 hr 11/13/24 11/14/24 11/14/24 05:42 05:17 05:30 MCV 92.6 MCH 31.7 MCHC 34.2 RDW 13.7 Plt Count 187 MPV 9.8 Absolute Nucleated RBC 0.000 Nucleated RBC % (auto) 0.0 VBG pH 7.39 VBG pCO2 42 VBG pO2 64 VBG HCO3 26 VBG O2 Saturation 93.0 VBG Base Excess 0.9 Anion Gap 13 Estim Creat Clear Calc 77.8 Estimated GFR > 60 Random Glucose 119 H Calcium 8.9 Magnesium 2.5 Total Bilirubin 0.3 Direct Bilirubin 0.2 AST 22 ALT 42 H Alkaline Phosphatase 75 B-Natriuretic Peptide < 10 Total Protein 6.5 Albumin 3.9 Assessment and Plan (1) COPD exacerbation: Status: Acute Plan 64M PMH COPD, GERD, BPH, presented with SOB acute hypoxic respiratory failure due to copd with acute decompensation no sepsis, tachycardia due to nebs, leukocytosis due to steroids steroids, nebs, azithro, wean o2 - still desatting on room air, requiring 3 L now to maintain saturation of low 90s gerd ppi bph no longer on meds dvt prophylaxis - lovenox full code reason for continued hospitalization: Hypoxia Quality Stroke Does the patient have a stroke diagnosis?: No VTE Prior VTE?: No VTE Risk Level:: Medical - moderate - high VTE Device Contraindication: Treatment Not Indicated VTE Drug Contraindication: N/A - Med Ordered
--- NOTE | 2024-11-14 10:53 | MHC.CM.PN ---
pt is working nd indepedent had no services dc plan home no services
[2024-11-14 11:39] VITALS: PULSE 86; RESP 18; O2SAT 99
[2024-11-14 15:20] VITALS: BP 139/75; PULSE 99; RESP 18; TEMP 36.9; O2SAT 91
--- NOTE | 2024-11-14 15:59 | PM.DS ---
DS: Providers Provider Date of Service: 11/14/24 Date of admission: 11/13/24 08:57 Date of discharge: 11/14/24 Primary care physician: Unknown Physician DS: Diagnosis Discharge Diagnosis (1) COPD exacerbation: Status: Acute DS: Summary Hospital Course Hospital Course: from initial hpi: 64M PMH COPD, GERD, BPH, presented with SOB. symptoms began about 2 days prior to presentation. sob, wheezing, cough with small amounts of clear sputum, denies fever, chills, chest pain, n/v/d, sick contacts. in ED noted to be hypoxic requiring 4L oxygen to maintain sats. cxr unremarkable. some relief with neb. hospital course: Patient was admitted for acute hypoxic respiratory failure secondary to COPD with acute decompensation. Was treated with steroids and azithromycin and nebulizers and symptoms improved faster than expected. By time of discharge patient was off room air for several hours and ambulating well without desaturation. He will be discharged home on 5 more days of prednisone and 4 more days of azithromycin. For GERD was continued on PPI for BPH he was no longer medication Time Attestation Discharge Coordination Time (in mins): 34 Quality: Safe Use of Opioids Does Pt have an Active Cancer Diagnosis on the Problem List?: No Quality: Stroke Does the patient have a stroke diagnosis?: No Physical Exam Vital Signs: Vital Signs: Last Vital Signs Temp 98.5 F 11/14/24 15:20 Pulse 99 11/14/24 15:20 Resp 18 11/14/24 15:20 BP 139/75 11/14/24 15:20 Pulse Ox 91 L 11/14/24 15:20 O2 Del Method Room Air 11/14/24 15:20 O2 Flow Rate 3 11/14/24 08:17 BMI result Body Mass Index 27.9 General: AO X 3, no acute distress Resp: CTA bilateral, no accessory muscles used CVS: S1,S2,RRR GI: soft, non tender, non distended Neuro: motor grossly intact, alert Psych: appropriate affect, appropriate insight DS: Data Data Completed and Pending Labs on day of discharge: Laboratory Results - last 24 hr 11/14/24 11/14/24 05:17 05:30 WBC 19.7 H RBC 5.11 Hgb 16.2 Hct 47.3 MCV 92.6 MCH 31.7 MCHC 34.2 RDW 13.7 Plt Count 187 MPV 9.8 Absolute Nucleated RBC 0.000 Nucleated RBC % (auto) 0.0 VBG pH 7.39 VBG pCO2 42 VBG pO2 64 VBG HCO3 26 VBG O2 Saturation 93.0 VBG Base Excess 0.9 Sodium 142 Potassium 4.1 Chloride 109 H Carbon Dioxide 24 Anion Gap 13 BUN 16 Creatinine 1.09 Estim Creat Clear Calc 77.8 Estimated GFR > 60 Random Glucose 119 H Calcium 8.9 Magnesium 2.5 Total Bilirubin 0.3 Direct Bilirubin 0.2 AST 22 ALT 42 H Alkaline Phosphatase 75 Total Protein 6.5 Albumin 3.9 Discharge Plan Discharge Anticipated Discharge Date/Time: 11/14/24 15:57 Patient Disposition: Home, Self-Care Discharge Diagnosis: copd Referrals: Physician,Unknown J [Primary Care Provider] - 1 Week Discharge Medications: New azithromycin 500 mg Tablet 500 mg PO Q24H Qty: 8 0RF prednisone 20 mg tablet 40 mg PO DAILY Qty: 10 0RF Continued omeprazole 20 mg capsule,delayed release(DR/EC) 20 mg PO DAILY@0630 albuterol sulfate [Ventolin HFA] 90 mcg/actuation HFA aerosol inhaler 2 puff inhalation Q6H PRN (Reason: Wheezing) Trelegy Ellipta 200-62.5-25 mcg blister with device 1 inh inhalation DAILY Qty: 1 6RF Discharge Orders: Discharge Order (Routine); Ordered 11/14/24 Ordered By: Juan Alberto Saldana Diet: Advance to usual diet Activity on Discharge: As tolerated Stand Alone Forms: Patient Portal Discharge page, Work/School Release Print Language: [place] Care Plan Goals: recovery Health Concerns: copd Plan of Treatment: 5 more days prednsione, 4 days azithro Assessment: see above
--- NOTE | 2024-11-14 16:04 | MHC.CM.PN ---
pt dcd home self care
== END 2024-11-14 17:08 | disposition home or self-care (01) | DRG 140 ==
LOC: HO.ED 08:56 → HO.EDOVER 09:06 → HO.S3 13:55
PROVIDERS: Internal Medicine; Physician Assistant; Admitting Provider Internal Medicine; Emergency Provider Emergency Medicine Emergency Medical Services; Visit Provider Internal Medicine
DX: J44.1 Chronic obstructive pulmonary disease with (acute) exacerbation (principal); J96.01 Acute respiratory failure with hypoxia; K21.9 Gastro-esophageal reflux disease without esophagitis; N40.0 Benign prostatic hyperplasia without lower urinary tract symptoms; Z20.822 Contact with and (suspected) exposure to COVID-19; Z79.899 Other long term (current) drug therapy; Z87.891 Personal history of nicotine dependence
CPT/HCPCS: 0241U; 36415; 71045; 80048; 80053; 80076; 82803; 83735; 83880; 84484; 85025; 85027; 93005; 94640; 99285; J1650; J2919; J3475

== ENCOUNTER → 2024-11-13 05:43 | Outpatient (BNV) | payer BC, SELFPAY | PROVIDERS: Admitting Provider Internal Medicine; Emergency Provider Emergency Medicine Emergency Medical Services; Visit Provider Internal Medicine Cardiovascular Disease | DX: R94.31 Abnormal electrocardiogram [ECG] [EKG] (principal); J45.909 Unspecified asthma, uncomplicated | CPT/HCPCS: 93010 ==

== ENCOUNTER → 2024-11-13 05:55 | Outpatient (BNV) | payer BC, SELFPAY | PROVIDERS: Emergency Provider Internal Medicine; Visit Provider Radiology Diagnostic Radiology | DX: R06.02 Shortness of breath (principal) | CPT/HCPCS: 71045 ==

== ENCOUNTER → 2024-11-13 08:57 | Outpatient (BNV) | payer BC, SELFPAY | PROVIDERS: Admitting Provider Internal Medicine; Emergency Provider Emergency Medicine Emergency Medical Services; Visit Provider Internal Medicine | DX: J44.1 Chronic obstructive pulmonary disease with (acute) exacerbation (principal) | CPT/HCPCS: 99239; 99499 ==